=== PATIENT | female | born 1970 | race African-American/Black ===

== ENCOUNTER 2024-03-24 15:04 | Inpatient (IN) | payer MEDICAID, OTHER ==
[2024-03-24] VITALS (8 sets, daily range): BP systolic 141–160; BP diastolic 63–91; PULSE 107–125; RESP 17–100; TEMP 100–100.1; O2SAT 99–100
[~2024-03-24] VITALS: Ht 157.5 cm; Wt 80.7 kg
--- NOTE | 2024-03-24 15:36 | ECG ---
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
--- NOTE | 2024-03-24 16:08 | ED.PDOC ---
GI ASSESSMENT HPI Comments 53y F who presents to the ED for chief complaint of epigastric pain. Pt states she has been having pain for the past 2 days. Pt states her pain in located by the epigastric region, radiating to the back, rating the pain 7/10, sharp in nature, with no associated exacerbating or relieving factors. Pt denies any associated shortness of breath, palpitations, nausea, vomiting, fever, cough, or chills. Pt spouse states pt has not been able to eat for the past 2 weeks and has been having difficulty keeping anything down. Pt has no prior medical history and denies these symptoms in the past. Pt otherwise denies any other symptoms at this time. Chief Complaint: epigastric pain Time Seen by MD: 16:04 Primary Care Provider: NONE Reviewed Notes: Nurses Notes, Medications, Allergies Allergies: Coded Allergies: NO KNOWN ALLERGIES (Unverified , 03/24/24) Information Source: Patient, Spouse Mode of Arrival: Ambulatory Brought in by: spouse Timing: Days Duration: Since onset Prehospital treatment: None Quality: Sharp Vomitus: None Stool: Normal Severity: Moderate Recent: None Recent Hx of: None Pain Location: Epigastric Modifying Factors: Nothing Associated sign and symptoms: Abdominal Pain Past Medical History Past Medical History (Other): gout Surgical History: Denies all surgeries 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 Family History Family History: Family hx of HTN Social History Smoker: Non-Smoker Alcohol: Denies ETOH Use Drugs: Denies Drug Use Lives In: Home Constitutional: denies: chills, diaphoresis, fatigue, fever, malaise, sweats, weakness, others EENTM: denies: blurred vision, double vision, ear bleeding, ear discharge, ear drainage, ear pain, ear ringing, eye pain, eye redness, hearing loss, mouth pain, mouth swelling, nasal discharge, nose bleeding, nose congestion, nose pain, photophobia, tearing, throat pain, throat swelling, voice changes, others Respiratory: denies: cough, hemoptysis, orthopnea, SOB at rest, shortness of breath, SOB with excertion, stridor, wheezing, others Cardiovascular: denies: chest pain, dizzy spells, diaphoresis, Dyspnea on exertion, edema, irregular heart beat, left arm pain, lightheadedness, palpit ations, PND, syncope, others Gastrointestinal: reports: abdominal pain; denies: abdomen distended, blood streaked bowels, constipated, diarrhea, dysphagia, difficulty swallowing, hematemesis, melena, nausea, poor appetite, poor fluid intake, rectal bleeding, rectal pain, vomiting, others Genitourinary: denies: abnormal vagina bleeding, burning, dyspareunia, dysuria, flank pain, frequency, hematuria, incontinence, pain, , vagina dischar ge, urgency, others Neurological: denies: dizziness, fainting, headache, left sided numbness, left sided weakness, numbness, paresthesia, pre-existing deficit, right sided numbness, right sided weakness, seizure, speech problems, tingling, tremors, weakness, others Musculoskeletal: denies: back pain, gout, joint pain, joint swelling, muscle pain, muscle stiffness, neck pain, others Integumetry: denies: bruises, change in color, change in hair/nails, dryness, laceration, lesions, lumps, rash, wounds, others Allergic/Immunocompromised: denies: Difficulty Healing, Frequent Infections, Hives, Itching, others Physical Exam General Appearance: Moderate Distress HEENT: Pale Conjuntivae (L), Pale Conjuntivae (R), Pharynx Normal, TMs Normal Neck: Full Range of Motion, Non-Tender, Normal, Normal Inspection Respiratory: Chest Non-Tender, Lungs Clear, No Accessory Muscle Use, No Respiratory Distress, Normal Breath Sounds Cardiovascular: No Edema, No JVD, No Murmur, No Gallop, Tachycardia Breast Exam: Deferred Gastrointestinal: Hepatomegaly, No Pulsatile Mass, Normal Bowel Sounds, Tenderness Genitalia: Deferred Pelvic: Deferred Rectal: Deferred Extremities: No calf tenderness, Normal capillary refill, Normal inspection, Normal range of motion, Non-tender, No pedal edema Musculoskeletal : Apperance: Normal Neurologic: Alert, conductor pullman II-XII nml as Tested, Motor Weakness, Normal Affect, Normal Mood, No Sensory Deficits Cerebellar Function: Unable to Test Reflexes: Normal Skin: Dry, Pallor, Warm Lymphatic: No Adenopathy EKG EKG : Pulse Rate (adult): 116 Pearson: Normal Cardiac Rhythm: ST Block: None Hypertrophy: None ST: Normal Was a procedure done? Was a procedure done?: No GI differential Dx Differential Diagnosis: Constipation, Dysmenorrhea, Gastritis/PUD, Gastroenteritis, Pancreatitis, UTI, Urolithiasis, Dehydration, Food Poisoning, Bacterial, Viral, Stress Ulcer, Kidney Stone X-Ray, Labs, Meds, VS Vital Signs Date Time Temp Pulse Resp B/P (MAP) Pulse Ox O2 Delivery O2 Flow Rate FiO2 03/24/24 18:10 121 32 99 Nasal Cannula* 2 28 03/24/24 18:10 121 32 162/86 (111) 99 03/24/24 17:38 122 38 100 Nasal Cannula 2.0 03/24/24 17:38 98.2 122 38 172/88 (116) 100 98.2 03/24/24 16:08 116 03/24/24 15:29 97.8 121 27 112/73 (86) 95 03/24/24 15:27 116 Lab Test 03/24/24 18:00 03/24/24 17:03 03/24/24 16:20 Range/Units Blood Gas Specimen Type Arterial Blood Gas Sample Site Left radial Blood Gas Patient Temperature 37.0 Arterial Blood Date Drawn [id number] Arterial Blood pH 7.331 L 7.350-7.450 Arterial Blood Partial Pressure CO2 21.5 L 32.0-45.0 mmHg Arterial Blood Partial Pressure O2 102.5 83.0-108.0 mmHg Arterial Blood HCO3 11.1 L 21.0-28.0 mmol/L Tito Test Yes Blood Gas Total Hemoglobin < 4.90 *L 12.0-16.0 g/dL Blood Gas Liter Flow 2.00 Blood Gas Modality Nasal cannula FiO2 % 28.0 Blood Gas Critical Value Read Back yes Blood Gas Notified Whom Juvenal correia md Blood Gas Notified Time [id number] Blood Gas Notified By [place] alfredo monet SARS-CoV-2 Antigen (Rapid) Negative NEGATIVE White Blood Count 15.2 H 4.4-10.8 10^3/uL Red Blood Count 1.57 L 4.0-5.20 10^6/uL Hemoglobin 4.2 *L 12.2-16.2 g/dL Hematocrit 13.5 L 36.0-46.0 % Mean Corpuscular Volume 86.2 80.0-100.0 fL Mean Corpuscular Hemoglobin 27.1 L 28.0-32.0 pg Mean Corpuscular Hemoglobin Concent 31.4 L 32.0-36.0 g/dL Red Cell Distribution Width 13.9 11.8-14.3 % Platelet Count 339 140-450 10^3/uL Mean Platelet Volume 6.4 L 6.9-10.8 fL Neutrophils (%) (Auto) 94.5 H 37.0-80.0 % Lymphocytes (%) (Auto) 2.1 L 10.0-50.0 % Monocytes (%) (Auto) 3.3 0.0-12.0 % Eosinophils (%) (Auto) 0.0 0.0-7.0 % Basophils (%) (Auto) 0.1 0.0-2.0 % Neutrophils # (Auto) 14.4 H 1.6-8.6 10 ^3/uL Lymphocytes # (Auto) 0.3 L 0.4-5.4 10 ^3/uL Monocytes # (Auto) 0.5 0-1.3 10 ^3/uL Eosinophils # (Auto) 0 0-0.8 10 ^3/uL Basophils # (Auto) 0 0-0.2 10 ^3/uL Nucleated Red Blood Cells 0.0 % Prothrombin Time 12.3 H 9.3-11.8 sec Prothrombin Time INR 1.17 H 0.9-1.15 Activated Partial Thromboplast Time 28.7 24.5-34.5 SEC Sodium Level 130 L 136-145 mmol/L Potassium Level 5.9 *H 3.5-5.1 mmol/L Chloride Level 100 98-107 mmol/L Carbon Dioxide Level 10 L 20-31 mmol/L Anion Gap 20 H 5-15 Blood Urea Nitrogen 112 *H 9-23 mg/dL Creatinine 12.42 *H 0.550-1.02 mg/dL Glomerular Filtration Rate Calc 3 >90 mL/min BUN/Creatinine Ratio 9.0 L 10.0-20.0 Serum Glucose 103 74-106 mg/dL Calcium Level 6.5 L 8.7-10.4 mg/dL Total Bilirubin 0.2 0.2-1.0 mg/dL Aspartate Amino Transferase (AST) 20 13-40 U/L Alanine Aminotransferase (ALT) 10 7-40 U/L Alkaline Phosphatase 85 46-116 U/L Total Protein 7.7 5.7-8.2 g/dL Albumin 3.6 3.2-4.8 g/dL Lipase 103 H 12-53 U/L Current Medications Medications (Trade) Dose Ordered Sig/Gianna Route Start Time Stop Time Status Last Admin Sodium Bicarbonate 50 ml ONCE ONCE IV 03/24/24 17:30 03/24/24 17:31 DC 03/24/24 18:15 Calcium Gluconate/ Sodium Chloride 50 ml @ 100 mls/hr ONCE ONCE IV 03/24/24 17:30 03/24/24 17:59 DC 03/24/24 18:03 Dextrose 50 ml ONCE ONCE IV 03/24/24 17:30 03/24/24 17:31 DC 03/24/24 18:15 Insulin Human Regular (InsuLIN R) 5 units ONCE ONCE IV 03/24/24 17:30 03/24/24 17:31 DC 03/24/24 18:17 Exam: CT CT AB PEL WO CON-NO ORAL OR IV IMPRESSION: 1. Limited by significant motion artifact. Patchy ground-glass and consolidative opacities in the lung bases are likely infectious / inflammatory. Consider dedicated chest CT. No definite acute abdominal abnormality identified. Suspect uterine fibroids. If concern persists consider repeat exam when patient is able to hold still. The CBC shows an elevated white blood cell count of 15.2 The hemoglobin is only 4.2 and hematocrit of 13.5 The platelets are within normal limits. The patient was typed and screened and will be transfused with 2 units of packed red blood cells. The chemistry panel came back with a sodium level of 130 indicating hyponatremia The potassium level is 5.9 indicating hypokalemia The CO2 level is low at 10 in the anion gap is elevated is 20 The BUN is 112 and the creatinine is 12.42 We did contact Nephrology and spoke with them. The recommendation is to continue fluids as well as place a Castellon catheter in the patient. We are going to be transfusing the patient with 2 units of packed red blood cells which was also their recommendation The patient will be admitted to the ICU at this time. The patient was lipase is elevated at 103 An ABG is pending at this time. The results are above and do not indicate any significant hypoxemia At this time, the patient will be continued on normal saline The COVID test is negative Images Reviewed?: Images reviewed and evaluated by me Time of 1ST Reevaluation: 16:40 Reevaluation 1ST: Unchanged Patient Education/Counseling: Diagnosis, Treatment, Prognosis Family Education/Counseling: Diagnosis, Treatment, Prognosis Additional Information I reviewed the following notes from patient's past medical encounters: The following tests were ordered, and results were reviewed by me: CBC, CMP, EKG X 1, Lipase, UA, CT abdomen pelvis without contrast, PTPTT, orthostatics,type and screen Additional Information was gathered from interviewing the following independent historians: spouse I reviewed and agreed with the following test results read by other providers: radiologist I discussed treatment and results with medical personnel and: patient and spouse Departure 1 Departure Time of Disposition: 18:06 Impression: Primary Impression: Acute renal failure Qualified Codes: N17.1 - Acute kidney failure with acute cortical necrosis Additional Impressions: Severe anemia Generalized weakness Disposition: ADMITTED INPATIENT Admit to: ICU Condition: Fair Critical Care Note Critical Care Time?: Yes (1 hr-critical care time only) Stability Stability form required: Yes Unstable for transfer: ICU, CCU, PCU, [place] (Intensive VS monitoring), Low BP (low high or fluctuating BP), ED Physician Assesment (Clinical assesment) Heart Score Heart Score: Heart Score Response (Comments) Value History N/A 0 EKG N/A 0 Age N/A 0 Risk Factors N/A 0 Troponin N/A 0 Total 0 I personally scribed for DONIS CORREIA MD ([email or web address]) on 03/24/24 at 16:08. Electronically submitted by Marie Greco ([email or web address]). I personally scribed for DONIS CORREIA MD ([email or web address]) on 03/24/24 at 16:49. Electronically submitted by Marie Greco ([email or web address]). DONIS CORREIA MD Mar 24, 2024 16:08
--- NOTE | 2024-03-24 16:24 | DVH ---
Exam: CT CT AB PEL WO CON-NO ORAL OR IV History: pain Comparison Study: None Technique: Multidetector spiral CT of the abdomen and pelvis was performed from lung bases to pubic symphysis. Imaging was performed without IV contrast. Axial, coronal and sagittal multiplanar reform ats were obtained from the axial data set by the technologist. Radiation dose : Abdomen/Pelvis: CTDIvol 16 mGy, DLP 822.91 mGy*cm. Findings: Evaluation of solid organs is limited due to lack of intravenous contrast use. Lung Bases: Patchy ground-glass and consolidative opacities in the visualized lung bases. Liver: The liver is normal in size. No focal lesions. Gallbladder and biliary Tree: Gallbladder is surgically absent. Spleen: Unremarkable Pancreas: The pancreas is grossly normal in appearance. Adrenal Glands: Unremarkable Kidneys: Kidneys are grossly normal without calculi or hydronephrosis. Bladder: Grossly unremarkable for degree of distention. Bowel: The stomach is grossly normal in appearance. Small bowel and colon are normal in caliber and d istribution. Normal appendix is visualized in the right lower quadrant without findings of appendici tis. Ascites: Absent Lymphadenopathy: No mesenteric, retroperitoneal or periportal lymphadenopathy. Abdominal wall and Mesentery: Mild diffuse anasarca Vasculature: The visualized abdominal aorta is normal in size and caliber. Evaluation of abdominal a nd pelvic vessels is limited due to lack of intravenous contrast. Pelvic Organs: Uterus appears enlarged, suspect fibroids. Musculoskeletal: Grade 1 anterolisthesis of L4 on L5. IMPRESSION: 1. Limited by significant motion artifact. Patchy ground-glass and consolidative opacities in the jean pierre g bases are likely infectious / inflammatory. Consider dedicated chest CT. No definite acute abdomi nal abnormality identified. Suspect uterine fibroids. If concern persists consider repeat exam when p atient is able to hold still. Radiation optimization: All CT scans at this facility use at least one of these dose optimization scotty hniques: Automated exposure control mA and/or kV adjustment per patient size (includes targeted exams where dose is matched to clinical indication) or iterative reconstruction. HS:Y
[2024-03-24 16:40] LABS: Basophils # (auto) 0 10 ^3/uL (0-0.2); Basophils % (auto) 0.1 % (0.0-2.0); Eosinophils # (auto) 0 10 ^3/uL (0-0.8); Monocytes # (auto) 0.5 10 ^3/uL (0-1.3); Monocytes % (auto) 3.3 % (0.0-12.0); Red Cell Distribution Width 13.9 % (11.8-14.3); White Blood Cell 15.2 10^3/uL (4.4-10.8)
[2024-03-24 16:41] LABS: Hematocrit 13.5 % (36.0-46.0); Lymphocytes # (auto) 0.3 10 ^3/uL (0.4-5.4); Lymphocytes % (auto) 2.1 % (10.0-50.0); Mean Corpuscular Hemoglobin 27.1 pg (28.0-32.0); Mean Corpuscular Hgb Conc. 31.4 g/dL (32.0-36.0); Mean Corpuscular Volume 86.2 fL (80.0-100.0); Neutrophils # (auto) 14.4 10 ^3/uL (1.6-8.6); Neutrophils % (auto) 94.5 % (37.0-80.0); Platelet Count (auto) 339 10^3/uL (140-450); Red Blood Cells 1.57 10^6/uL (4.0-5.20)
[2024-03-24 16:56] LABS: Alanine Aminotransferase 10 U/L (7-40); Albumin 3.6 g/dL (3.2-4.8); Alkaline Phosphatase 85 U/L (46-116); Anion Gap 20 (5-15); Aspartate Aminotransferase 20 U/L (13-40); Chloride 100 mmol/L (98-107); Glucose 103 mg/dL (74-106); Total Protein 7.7 g/dL (5.7-8.2)
[2024-03-24 17:00] LABS: Bilirubin, Total 0.2 mg/dL (0.2-1.0); Calcium 6.5 mg/dL (8.7-10.4); Carbon Dioxide 10 mmol/L (20-31); Sodium 130 mmol/L (136-145)
[2024-03-24 17:02] LABS: INR 1.17 (0.9-1.15); Partial Thromboplastin Time 28.7 SEC (24.5-34.5); Prothrombin Time 12.3 sec (9.3-11.8)
[2024-03-24 17:05] LABS: Blood Urea Nitrogen 112 mg/dL (9-23); Potassium 5.9 mmol/L (3.5-5.1)
[2024-03-24 17:22] LABS: Lipase 103 U/L (12-53)
[2024-03-24 17:23] LABS: Hemoglobin 4.2 g/dL (12.2-16.2)
[2024-03-24] MEDS: CALCIUM GLUC 1,000mg/50ml-NS 50 ML IV ONE (18:03)
[2024-03-24] MEDS: SODIUM BICARB 8.4% 50Meq/50ml SYR Vial IV ONE (18:15)
[2024-03-24] MEDS: DEXTROSE (50%) 50ML SYRG IV ONE (18:15)
[2024-03-24] MEDS: InsuLIN REG 1unit/0.01ml Soln (100units/ml) IV ONE (18:17)
[2024-03-24 19:02] LABS: COVID19 ANTIGEN SOFIA FIA NEGATIVE (NEGATIVE)
[2024-03-24] MEDS ORDERED: MORPHINE SULFATE INJ 2 MG/ml SYRG IV PRN ×2 (21:00)
[2024-03-24] MEDS ORDERED: ONDANSETRON HCL 4 MG/2 ML VIAL IV PRN (21:00)
[2024-03-24] MEDS ORDERED: NITROGLYCERIN 0.4 MG SL TAB SL PRN (21:00)
--- NOTE | 2024-03-24 21:16 | DVHHPRES ---
History of Present Illness Resident Creating Document: BORIS VARMA RESIDENT History of Present Illness This is a 53yrs old female with past medical history of gout presented to the ED with a chief complaint of epigastric pain and throat pain for two days prior to this admission. According to patient the epigastric pain started two days ago which is sharp in nature, 7/10 with no aggravating and relieving factor, radiating to the back and not associated with any nausea, vomiting, hemoptysis or hematemesis. The patient lives in [facility] in [facility] and came to [place] one month ago as a visitor blood work was in November which was normal. On admission the patient hemoglobin was 4.2, elevated BUN , creatinine was 12.89, and potassium was 5.9. The patient had mammography one year ago which was normal and never had any colonoscopy, endoscopy and Pap test before. Patient denies productive cough, chest pain, shortness of breath, abdominal pain, nausea , vomiting, any change in bowel and bladder habit, melena, sick contact. Past Medical History Hypertension, gout Past Surgical History None Family History None Lives: Alone Past Social History Nonsmoker, nonalcoholic and never tried any drugs Review of Systems Constitutional: Yes: Fever Eyes: No: Pain, Vision change, Conjunctivae inflammation, Eyelid inflammation, Other, Redness ENT: No: Ear pain, Ear discharge, Nose pain, Nose discharge, Nose congestion, Mouth pain, Mouth swelling, Throat pain, Throat swelling, Other Respiratory: Cough, Dry Gastrointestinal: Abdominal Pain; No: Nausea, Vomiting, Diarrhea, Constipation, Melena, Hematochezia, Other Genitourinary: No Dysuria, No Frequency, No Incontinence, No Hematuria, No Retention, No Other Musculoskeletal: neck pain; No: other, shoulder pain, arm pain, back pain, hand pain, leg pain, foot pain Skin: No: Rash, Lesions, Jaundice, Bruising, Other Neurological: No: Weakness, Numbness, Incoordination, Change in speech, Confusion, Seizures, Other Allergies: Coded Allergies: NO KNOWN ALLERGIES (Unverified , 03/24/24) Medications Current Medications Medications Dose Ordered Sig/Gianna Route Start Time Stop Time Status Last Admin Dose Admin Sodium Chloride 10 ml Q8HR IV 03/24/24 22:00 UNV Ondansetron HCl 4 mg Q4HP PRN IV 03/24/24 21:00 UNV Acetaminophen 650 mg Q6HP PRN PO 03/24/24 21:00 UNV Morphine Sulfate 2 mg Q4HPRN PRN IV 03/24/24 21:00 UNV Nitroglycerin 0.4 mg Q5MINP PRN SL 03/24/24 21:00 UNV Morphine Sulfate 2 mg Q30M PRN IV 03/24/24 21:00 UNV Pantoprazole Sodium 40 mg BID IV 03/24/24 22:00 UNV Ceftriaxone Sodium 50 ml @ 100 mls/hr DAILY IV 03/25/24 10:00 UNV Azithromycin 250 ml @ 125 mls/hr COUMADIN IV 03/25/24 17:00 UNV Exam Vital Signs Vital Signs Date Time Temp Pulse Resp B/P (MAP) Pulse Ox O2 Delivery O2 Flow Rate FiO2 03/24/24 21:15 100.0 117 26 141/63 100.0 03/24/24 21:15 100 03/24/24 18:10 Nasal Cannula* 2 28 Exam Physical exam General Appearance: Alert, Oriented X3, mild distress (Pale mucous membrane) HEENT: Atraumatic, Mucous membr. moist/pink Respiratory: Clear to auscultation, Normal air movement Cardiovascular: Regular rate, Normal S1, Normal S2, No murmurs Abdominal: Normal bowel sounds, Soft, No hepatospenomegaly, No masses, Other (Tenderness in the right subcostal region) Extremities: No clubbing, No cyanosis, No edema, Normal pulses, No tenderness/swelling Skin: No rashes, No breakdown Neuro: Normal gait, Normal speech, Strength at 5/5 X4 ext, Normal tone, Sensation intact, Other (Grossly intact cranial nerves) Psych/Mental Status: Mental status NL, Mood NL Labs/Xrays Labs Test 03/24/24 18:00 03/24/24 17:03 03/24/24 16:20 Range/Units Blood Gas Specimen Type Arterial Blood Gas Sample Site Left radial Blood Gas Patient Temperature 37.0 Arterial Blood Date Drawn [id number] Arterial Blood pH 7.331 L 7.350-7.450 Arterial Blood Partial Pressure CO2 21.5 L 32.0-45.0 mmHg Arterial Blood Partial Pressure O2 102.5 83.0-108.0 mmHg Arterial Blood HCO3 11.1 L 21.0-28.0 mmol/L Tito Test Yes Blood Gas Total Hemoglobin < 4.90 *L 12.0-16.0 g/dL Blood Gas Liter Flow 2.00 Blood Gas Modality Nasal cannula FiO2 % 28.0 Blood Gas Critical Value Read Back yes Blood Gas Notified Whom Juvenal gold md Blood Gas Notified Time [id number] Blood Gas Notified By Burton monet SARS-CoV-2 Antigen (Rapid) Negative NEGATIVE White Blood Count 15.2 H 4.4-10.8 10^3/uL Red Blood Count 1.57 L 4.0-5.20 10^6/uL Hemoglobin 4.2 *L 12.2-16.2 g/dL Hematocrit 13.5 L 36.0-46.0 % Mean Corpuscular Volume 86.2 80.0-100.0 fL Mean Corpuscular Hemoglobin 27.1 L 28.0-32.0 pg Mean Corpuscular Hemoglobin Concent 31.4 L 32.0-36.0 g/dL Red Cell Distribution Width 13.9 11.8-14.3 % Platelet Count 339 140-450 10^3/uL Mean Platelet Volume 6.4 L 6.9-10.8 fL Neutrophils (%) (Auto) 94.5 H 37.0-80.0 % Lymphocytes (%) (Auto) 2.1 L 10.0-50.0 % Monocytes (%) (Auto) 3.3 0.0-12.0 % Eosinophils (%) (Auto) 0.0 0.0-7.0 % Basophils (%) (Auto) 0.1 0.0-2.0 % Neutrophils # (Auto) 14.4 H 1.6-8.6 10 ^3/uL Lymphocytes # (Auto) 0.3 L 0.4-5.4 10 ^3/uL Monocytes # (Auto) 0.5 0-1.3 10 ^3/uL Eosinophils # (Auto) 0 0-0.8 10 ^3/uL Basophils # (Auto) 0 0-0.2 10 ^3/uL Nucleated Red Blood Cells 0.0 % Prothrombin Time 12.3 H 9.3-11.8 sec Prothrombin Time INR 1.17 H 0.9-1.15 Activated Partial Thromboplast Time 28.7 24.5-34.5 SEC Sodium Level 130 L 136-145 mmol/L Potassium Level 5.9 *H 3.5-5.1 mmol/L Chloride Level 100 98-107 mmol/L Carbon Dioxide Level 10 L 20-31 mmol/L Anion Gap 20 H 5-15 Blood Urea Nitrogen 112 *H 9-23 mg/dL Creatinine 12.42 *H 0.550-1.02 mg/dL Glomerular Filtration Rate Calc 3 >90 mL/min BUN/Creatinine Ratio 9.0 L 10.0-20.0 Serum Glucose 103 74-106 mg/dL Calcium Level 6.5 L 8.7-10.4 mg/dL Total Bilirubin 0.2 0.2-1.0 mg/dL Aspartate Amino Transferase (AST) 20 13-40 U/L Alanine Aminotransferase (ALT) 10 7-40 U/L Alkaline Phosphatase 85 46-116 U/L Total Protein 7.7 5.7-8.2 g/dL Albumin 3.6 3.2-4.8 g/dL Lipase 103 H 12-53 U/L Assessment/Plan Assessment/Plan Assessment and plan: # Acute severe anemia # Rule out GI bleeding, hemolysis - On admission hemoglobin was 4.2 and 2 units of blood transfusion was given - Monitor H&H - Ordered FOBT, iron panel, ferritin, reticulocyte count, haptoglobin, LDH, B12 and folic acid. - NPO - Protonix IV 40 mg b.i.d. # Sepsis likely due to Gram positive/Gram-negative pneumonia - patient has increased temperature, tachycardia, tachypnea and increased WBC count - CT abdomen pelvis without contrast revealed patchy ground-glass opacity and possible consolidations in lung bases - Ordered COVID, flu, UA, blood culture, urine culture and lactic acid - IV ceftriaxone 1 g daily and IV azithromycin 500 mg daily # Rule out acute pancreatitis - Elevated lipase and CT abdomen pelvis revealed normal study - Ordered lipid panel. 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 - FeNA is 2.7 - Ordered HbA1C, complementsC3 and C4 level, ANCA panel, hepatitis panel, HIV, MADI, immunofixation and light chain free S, antiglomerular BM antibody. - Consulted nephrology - Consulted IR for kidney biopsy # Hyperkalemia - Hyperkalemia protocol management - Lokelma p.o. t.i.d. # Hypertensive heart disease - Ordered troponin, BNP and echo -Monitor BP closely. # History of gout - Ordered uric acid Goal of care discussed with the patient for more than 20 minutes full code Plan of treatment discussed with Dr. Mathews Plan discussed with: Patient My Orders Orders - BORIS VARMA RESIDENT Procedure Category Date Status Time Admit ADMIT 03/24/24 Transmitted 20:59 Code Status CODE 03/24/24 Transmitted 20:59 Sodium Chloride Lock PHA 03/24/24 Logged (Saline Lock Ns) 22:00 Ondansetron Hcl PHA 03/24/24 Logged (Zofran) 21:00 Complete Blood Count LAB 03/25/24 Verified 04:00 Comprehensive LAB 03/25/24 Verified Metabolic Panel 04:00 Npo (Nothing By DIET 03/25/24 Transmitted Mouth) Diet Breakfast Echo 2d Mode Cardiac US 03/24/24 Logged DOP 20:59 Acetaminophen Tablet PHA 03/24/24 Logged (Tylenol Tablet) 21:00 Morphine Sulfate PHA 03/24/24 Logged Injection 21:00 Nitroglycerin PHA 03/24/24 Logged Sublingual (Ntrostat 21:00 Morphine Sulfate PHA 03/24/24 Logged Injection 21:00 Oxygen By Nasal RT 03/24/24 Transmitted Cannula 20:59 Stat Ekg For Chest [facility] 03/24/24 In Process Pain 20:59 Notify Of Changes [facility] 03/24/24 In Process From Base 20:59 Child Development Teacher For [facility] 03/24/24 In Process 24 Hours 20:59 Emergency Dysrhythmia [facility] 03/24/24 In Process Protocol 20:59 Rhythm Strips Once [facility] 03/24/24 In Process Every Shift 20:59 Reticulocyte Count LAB 03/24/24 Logged 21:03 Haptoglobin LAB 03/24/24 Logged 21:03 Lactate Dehydrogenase LAB 03/24/24 Logged 21:03 Stool Occult Blood LAB 03/24/24 Logged 21:03 Urinalysis LAB 03/24/24 Logged 21:03 Uric Acid LAB 03/24/24 Logged 21:03 Urine Creatinine LAB 03/24/24 Logged 21:03 Urine Sodium LAB 03/24/24 Logged 21:03 Urine Protein LAB 03/24/24 Logged 21:03 Blood Culture Z[facility] 03/24/24 Logged 21:03 Urine Bacterial [facility] 03/24/24 Logged Culture 21:03 Lactic Acid W/ Reflex LAB 03/24/24 Logged Order 21:03 Drug Screen LAB 03/24/24 Logged 21:03 Parathyroid Hormone LAB 03/24/24 Logged Intact 21:03 Comprehensive LAB 03/24/24 Logged Hepatitis Panel 21:03 Pantoprazole PHA 03/24/24 Logged (Protonix) 22:00 Sodium Zirconium PHA 03/24/24 Logged Cyclosilicate 21:15 Troponin-I Hs LAB 03/24/24 Logged 21:08 Troponin-I Hs LAB 03/24/24 Logged 22:08 Troponin-I Hs LAB 03/25/24 Verified 00:08 B-Type Natriuretic LAB 03/24/24 Logged Peptide 21:08 Rapid Influenza A&B LAB 03/24/24 Logged 21:08 Mrsa Screen ZITA 03/24/24 Logged 21:08 *[facility] CONS 03/24/24 Transmitted -[place] 21:08 Ceftriaxone 1gm/50ml PHA 03/25/24 Logged D5w (Rocephin) 10:00 Azithromycin 500mg/ PHA 03/25/24 Logged 250ml (Zithromax 50 17:00 Magnesium LAB 03/24/24 Logged 21:12 Phosphorus LAB 03/24/24 Logged 21:12 Kidney US 03/24/24 Logged 21:12 Bladder Scan ORDERS 03/24/24 Transmitted 21:12 Hemoglobin A1c LAB 03/24/24 Verified 21:14 Thyroid Stimulating LAB 03/24/24 Verified Hormone 21:14 Date of Service: Mar 24, 2024 Billing Provider: JEROMY MATHEWS MD Common Visit Codes: [id number] INP/OBS CARE (HIGH) BORIS VARMA RESIDENT Mar 24, 2024 21:16 JEROMY MATHEWS MD Mar 25, 2024 08:20
[2024-03-24] MEDS: SODIUM CHLOR 0.9% PF (SALINE LOCK) 10ML VIAL/SYR IV SCH (22:00)
[2024-03-24 22:09] LABS: Urine Amorphous Crystal FEW /hpf (None Seen); Urine Bacteria FEW /hpf (None Seen); Urine Blood 3+ /uL (Negative); Urine Clarity Turbid (Clear); Urine Color Colorless (Yellow); Urine Protein, UAD 3+ (Negative); Urine Specific Gravity 1.012 (1.001-1.035); Urine Squamous Epithelial Cell FEW /hpf (<5); Urine Urobilinogen Normal (Negative); Urine WBC 11 /hpf (0 - 5)
[2024-03-24 22:23] LABS: Creatinine, Urine 67.89 mg/dL (30.0-125.0)
[2024-03-24 22:34] LABS: Protein, Urine 355.3 mg/dL (1-14)
[2024-03-24 22:35] LABS: Amphetamine Screen, Urine Neg (NEGATIVE); Barbiturate Scree,Urine Neg (NEGATIVE); Benzodiazephine Screen, Urine Neg (NEGATIVE); Cannabinoid Screen, Urine Neg (NEGATIVE); Cocaine Screen, Urine Neg (NEGATIVE); Opiate Scree,Urine Neg (NEGATIVE); Phencyclidine Screen, Urine Neg (NEGATIVE)
[2024-03-24] MEDS: SODIUM ZIRCONIUM CYCL 10 GM PAK PO ONE (22:50)
[2024-03-24] MEDS: ACETAMINOPHEN 325 MG TAB PO PRN (22:51)
[2024-03-24] MEDS: PANTOPRAZOLE 40 MG/10 ML VIAL INJ IV SCH (22:51)
--- NOTE | 2024-03-24 23:20 | DVH ---
BILATERAL RENAL ULTRASOUND CLINICAL HISTORY: MATIAS on CKD COMPARISON: CT obtained earlier the same day. TECHNIQUE: High-resolution real-time grayscale and color flow imaging is performed. FINDINGS: Sanitary [employer]kin Machine Tender reports difficulty with the examination due to patient body habitus. Right kidney: Measures 7.2 cm in length. No hydronephrosis. Normal cortical thickness. Increased pare nchymal echogenicity. Left kidney: Measures 7.6 cm in length. No hydronephrosis. Normal cortical thickness. Increased paren chymal echogenicity. Bladder: Underdistended. Prevoid volume 44 mL. No large mass lesion or calculus as visualized. IMPRESSION: Kidneys are smaller in size but symmetric. Increased renal parenchymal echogenicity can be seen with medical renal disease. No hydronephrosis.
[2024-03-24] MEDS: KETOROLAC TROMETH 30 MG/ML 1ML VIAL IM ONE (23:58)
[2024-03-25] VITALS (10 sets, daily range): BP systolic 121–150; BP diastolic 71–88; PULSE 90–101; RESP 16–20; TEMP 98–100.1; O2SAT 99–100
[2024-03-25] MEDS: AZITHROMYCIN 500MG/ 250ML 250 ML IV SCH (00:30)
[2024-03-25 04:28] LABS: Basophils # (auto) 0 10 ^3/uL (0-0.2); Eosinophils # (auto) 0 10 ^3/uL (0-0.8); Monocytes # (auto) 0.5 10 ^3/uL (0-1.3); Red Cell Distribution Width 14.1 % (11.8-14.3)
[2024-03-25 04:34] LABS: Basophils % (auto) 0.2 % (0.0-2.0); Hematocrit 18.9 % (36.0-46.0); Lymphocytes # (auto) 0.5 10 ^3/uL (0.4-5.4); Lymphocytes % (auto) 3.6 % (10.0-50.0); Mean Corpuscular Hemoglobin 28.8 pg (28.0-32.0); Mean Corpuscular Hgb Conc. 33.9 g/dL (32.0-36.0); Monocytes % (auto) 3.8 % (0.0-12.0); Neutrophils # (auto) 11.9 10 ^3/uL (1.6-8.6); Neutrophils % (auto) 92.4 % (37.0-80.0); Nucleated Red Blood Cells % 0.1 %; Platelet Count (auto) 228 10^3/uL (140-450); Red Blood Cells 2.22 10^6/uL (4.0-5.20); White Blood Cell 12.9 10^3/uL (4.4-10.8)
[2024-03-25 04:35] LABS: INR 1.24 (0.9-1.15); Prothrombin Time 12.9 sec (9.3-11.8)
[2024-03-25 04:39] LABS: Alkaline Phosphatase 73 U/L (46-116); Anion Gap 18 (5-15); Chloride 103 mmol/L (98-107); Glucose 88 mg/dL (74-106); LDL Cholesterol 79 mg/dL (< 100); Total Protein 6.5 g/dL (5.7-8.2); Triglycerides 92 mg/dL (< 150)
[2024-03-25 04:40] LABS: Aspartate Aminotransferase 21 U/L (13-40); Bilirubin, Total 0.3 mg/dL (0.2-1.0); Cholesterol 125 mg/dL (< 200)
--- NOTE | 2024-03-25 04:40 | DVH ---
Procedure: CT CHEST WITHOUT CONTRAST Reason for study/Clinical History: Hypoxia Comparison Study: None available at time of dictation. Exam Date: 03/25/2024 03:31 AM TECHNIQUE: Multidetector CT of the chest was performed from the lung apices to the upper abdomen with out the use of intravenous contract. Axial, coronal and sagittal multiplanar reformats were performed . Radiation dose Information: CT Dose: CTDI volume is 14.79 mGy. Dose-length product is 506.0 mGy*cm The dose indicators for CT are the volume computed tomography (CT) dose index (CTDIvol) and the dose length product (DLP), and are measured in units of mGy and mGy-cm, respectively. These indicators are not patient dose, but values generated from the CT scanner acquisition factors. The report includes radiation exposure data for exposures received during this examination. FINDINGS: Lower neck: Normal thyroid. Lungs: Diffuse bilateral airspace consolidation. Pleural: No effusion or pneumothorax Central airways: Patent. Heart/Vascular Structures: Normal heart size. No pericardial effusion. Coronary artery calcification s. Normal size thoracic aorta and main pulmonary artery. Lymph Nodes: No adenopathy Musculoskeletal: No acute osseous abnormality. Soft tissues: Normal. Upper abdomen: Limited portions of the upper abdomen are unremarkable. IMPRESSION: 1. Bilateral pulmonary opacities which may represent pulmonary edema or pneumonia. 2. Mild coronary artery disease. Radiation optimization: All CT scans at this facility use at least one of these dose optimization scotty hniques: Automated exposure control mA and/or kV adjustment per patient size (includes targeted exams where dose is matched to clinical indication) or iterative reconstruction.
[2024-03-25 04:41] LABS: % Iron Saturation 8.5 % (15-50); Hemoglobin 6.4 g/dL (12.2-16.2)
[2024-03-25 04:44] LABS: Folate (Folic Acid) 9.53 ng/mL (>5.38)
[2024-03-25 04:52] LABS: Alanine Aminotransferase < 9 U/L (7-40); Calcium 6.4 mg/dL (8.7-10.4); Carbon Dioxide 13 mmol/L (20-31); HDL Cholesterol 25 mg/dL (40-59); Magnesium 1.5 mg/dL (1.6-2.6); Phosphorus 8.8 mg/dL (2.4-5.1); Potassium 5.5 mmol/L (3.5-5.1); Sodium 134 mmol/L (136-145)
[2024-03-25 04:53] LABS: Blood Urea Nitrogen 114 mg/dL (9-23)
[2024-03-25 05:35] LABS: Platelet Estimate Adequate; Uric Acid 7.4 mg/dL (3.1-7.8)
[2024-03-25] MEDS: SODIUM ZIRCONIUM CYCL 10 GM PAK PO SCH (06:36)
[2024-03-25 08:46] LABS: Hepatitis B Core Total AB Negative (Negative)
[2024-03-25] MEDS: ALBUTEROL SULF 2.5 MG/0.5ML(0.5%) NEB SOLN NEB ONE (09:22)
[2024-03-25 10:19] LABS: Rapid Influenza A Negative (Negative); Rapid Influenza B Negative (Negative)
[2024-03-25] MEDS: DEXTROSE (50%) 50ML SYRG IV ONE (10:33)
[2024-03-25] MEDS: CALCIUM GLUC 1,000mg/50ml-NS 50 ML IV ONE (10:33)
[2024-03-25] MEDS: SODIUM BICARB 8.4% 50Meq/50ml SYR INJ IV ONE (10:33)
[2024-03-25] MEDS: InsuLIN REG 1unit/0.01ml Soln (100units/ml) IV ONE (10:33)
[2024-03-25] MEDS: cefTRIAXone 1GM/50ML D5W 50 ML IV SCH (10:59)
[2024-03-25 12:03] LABS: Hematocrit 22.2 % (36.0-46.0); Hemoglobin 7.4 g/dL (12.2-16.2)
--- NOTE | 2024-03-25 12:52 | DVHPNRES ---
Progress Note Date Seen: Mar 25, 2024 Resident Creating Document: JOSÉ BELTRAN RESIDENT Medical Necessity Reason Pt with a Central, PICC or Fol: No Subjective Review of Systems 53yrs old female with past medical history of gout presented to the ED with a chief complaint of chest pain, cough, epigastric pain and throat pain for two days prior to this admission. The patient lives in [facility] in [facility] and came to [place] one month ago as a visitor blood work was in November which was normal. pt seen and examined at bedside, is on 2L of oxygen through nasal canula. ROS Constitutional: No: Fever, Chills, Sweats, Weakness, Malaise, Other Eyes: No: Pain, Vision change, Conjunctivae inflammation, Eyelid inflammation, Other, Redness ENT: No: Ear pain, Ear discharge, Nose pain, Nose discharge, Nose congestion, Mouth pain, Mouth swelling, Throat pain, Throat swelling, Other Respiratory: Shortness of breath, cough No: Wheezing, Hemoptysis, Pleuritic Pain, Sputum, Wheezing, Other Cardiovascular: Chest pain, No: Chest Pain, Palpitations, Orthopnea, Paroxysmal Noc. Dyspnea, Edema, Lt Headedness, Other Gastrointestinal: epigastric pain No: Nausea, Vomiting, Abdominal Pain, Diarrhea, Constipation, Melena, Hematochezia, Other Musculoskeletal: No: other, neck pain, shoulder pain, arm pain, back pain, hand pain, leg pain, foot pain Neurological:; No: Weakness, Numbness, Incoordination, Change in speech, Confusion, Seizures Objective vital signs Vital Sign Date Time Temp Pulse Resp B/P (MAP) Pulse Ox O2 Delivery O2 Flow Rate FiO2 03/25/24 12:00 94 12 122/74 (90) 100 03/25/24 10:00 98.4 98.4 03/25/24 09:22 Nasal Cannula* 2 28 Total Intake and Output 03/24/24 03/24/24 03/25/24 15:00 23:00 07:00 Intake Total 1200 ml Output Total 0 ml Balance 1200 ml medications Current Medications Medications Dose Ordered Sig/Gianna Route Start Time Stop Time Status Last Admin Dose Admin Sodium Chloride 10 ml Q8HR IV 03/24/24 22:00 03/25/24 06:08 10 ML Acetaminophen 650 mg Q6HP PRN PO 03/24/24 21:00 03/24/24 22:51 650 MG Pantoprazole Sodium 40 mg BID IV 03/24/24 22:00 03/25/24 10:58 40 MG Zirconium Oxide 10 gm TID PO 03/25/24 06:00 03/25/24 06:36 10 GM Meropenem 50 ml @ 17 mls/hr DAILY IV 03/26/24 10:00 UNV Examination Examination General Appearance: Alert, Oriented X3, Cooperative, No acute distress HEENT: EOMI Respiratory: Clear to auscultation, Normal air movement Cardiovascular: Regular rate, Normal S1, Normal S2 Abdominal: Normal bowel sounds Extremities: No cyanosis, No edema, Normal pulses, No tenderness/swelling Skin: No rashes, No breakdown Neuro: Normal speech and tone laboratory and microbiology Laboratory Tests 03/25/24 11:48 03/25/24 04:00 Test 03/25/24 04:00 Range/Units Serum Glucose 88 74-106 mg/dL Labs and/or images reviewed: Labs reviewed by me, Image(s) reviewed by me Problem List/Assessment/Plan Problem List/Assessment/Plan Assessment/plan Neurology Cardiology # NSTEMI type 2 -likely due to MATIAS on CKD -EKG for monitoring Respiratory # Acute hypoxic respiratory failure likely in the setting of severe anemia, volume overload/pulmonary congestion/questionable pneumonia -2l O2 through nasal canula -IV Lasix 100 mg b.i.d. #?Questionable pneumonia, comminuted required, Gram-positive/Gram-negative -IV meropenem -sputum culture MRSA screen Hematology # Severe Anemia requiring blood transfusion, normocytic anemia, possibly due to anemia of chronic disease due to CKD, ?GI bleed -transfused with 3 units of PRBC -CBC in the a.m. Nephrology # MATIAS over CKD ?Glomerulonephritis -last BUN 114, creatinine 13.6 -nephrology consulted Planning dialysis -NPO after midnight for tunneled catheter -FeNA 2.7% -HIV, hep b, hep C, RPR # hyperkalemia likely due to MATIAS Corrected # anion gap and non-anion gap metabolic acidosis with compensated respiratory alkalosis likely due to uremic MATIAS -repeat BMP in the morning # hypomagnesemia -slow correction in the setting of MATIAS # hypocalcemia the setting of CKD -corrected calcium is 7.2, asymptomatic -monitor BMP # hyperphosphatemia likely in the setting of CKD -monitor Infectious disease #?Sepsis likely due to questionable pneumonia -judicious use of IV fluids considering GFR less than three -panculture -IV meropenem #UTI -IV meropenam -urine culture GI #?GI bleed -IV protonix 40mg BID -FOBT Endocrine Rheumatology #Gout -not in active flare Lines peripheral IV Line Drips Code status discussed with the patient for >21 min, FULL CODE Nutrition NPO after midnight DVT prophylaxis currently on hold because of severe anemia Case discussion with DR bishop Plan discussed with: Patient, Other My Orders My Orders Orders - JOSÉ BELTRAN RESIDENT Procedure Category Date Status Time Respiratory Culture ZITA 03/25/24 Logged W/ Gs 12:35 BIPAP RT 03/25/24 Logged 12:35 Abg W/ Co-Ox RT 03/25/24 Logged 12:35 Meropenem 500mg Ivpb PHA 03/25/24 Logged (Merrem 500mg/Ns) 12:45 Meropenem 500mg Ivpb PHA 03/26/24 Logged (Merrem 500mg/Ns) 10:00 CC Plasma Assessment Blood Product Administration S: [id number] Date of Service: Mar 25, 2024 Billing Provider: EMILIE BISHOP MD Common Visit Codes: [id number] CARE 30-74 MIN Coding Comment Comment attending attestation acute hypoxic respiratory failure sepsis? severe anemia req transfusion anemia chronic disease MATIAS on CKD hyperkalemia hypomag hypocalcemia hyperphos HAGMA gout type 2 VA CKD keep spo2 >94% low treshold for bipap/intubation nephro consult for HD IR for permacath, kidney bx serology keep hb >7 lokelma empiric meropenem hold ivf follow culture fobt critical care time 45 minutes JOSÉ BELTRAN Mar 25, 2024 12:52 EMILIE BISHOP MD Mar 25, 2024 18:46
--- NOTE | 2024-03-25 12:59 | DVHSR ---
APPROVED REPORT EXAM: Two-dimensional and M-mode echocardiogram with Doppler and color Doppler. Blood Pressure: 142/72 mmHg INDICATION Chest Pain RISK FACTORS Height: 62, Weight: 164 DIMENSIONS LVDd4.7 (3.8-5.7cm)LA (2D)4.6 (1.9-4.0cm)Aortic Root3.2 (2.0-3.7cm) LVDs3.3 (2.5-4.0cm)LA (MM) (1.9-4.0cm)Aortic Cusp Exc2.0 (1.5-2.0cm) EF (%) 57.0 (55-70%)Rt. Atrium3.9 (1.9-4.0cm)Asc. Aorta cm IVSd1.2 (0.7-1.1cm)RV (D) (1.8-2.4cm) PWd1.3 (0.7-1.1cm) Mitral Valve MitralMitral Stenosis E wave0.84m/sMV Mean GR.mmHg A wave0.97m/sMV Peak GR.141mmHg E/A ratio0.92D MVAcm2 DECEL [id number] 1/2 [id number] IVRTmsDop MVA6.18cm2 Aortic Valve Aortic ValveAortic Stenosis V11.40m/Olive Mean GR.6mmHg V21.64m/Olive Peak GR.11mmHg LVOT Diameter1.7 (1.8-2.4cm)Doppler AVA1.94cm2 Pulmonic Valve V21.09m/s Other Information Technically limited study due to body habitus and patient position. Conclusion Normal left ventricular size and dimension. Normal left ventricular systolic function estimated ejec tion fraction 55%. There is a grade diastolic dysfunction. Normal right ventricular size and dimension. Normal lright ventricular systolic function. Normal biatrial size and dimension. Normal aortic valve structure and function. Normal mitral valve structure and function. Normal tricuspid valve structure and function. The pulmonary valve is grossly normal. No pericardial effusion.
[2024-03-25 13:06] LABS: Hepatitis A Total Antibody Positive (Negative)
[2024-03-25 13:07] LABS: Hepatitis B Surface Antibody Negative (Negative); Hepatitis B Surface Antigen Negative (Negative); Hepatitis C Antibody Negative (Negative)
[2024-03-25] MEDS: MEROPENEM 500MG IVPB 50 ML IV ONE (13:15)
[2024-03-25 13:31] LABS: Base Excess -12.7 mmol/L (-2.0-3.0)
[2024-03-25 13:39] LABS: Chloride 103 mmol/L (98-107); Potassium 4.6 mmol/L (3.5-5.1)
[2024-03-25 13:40] LABS: Anion Gap 18 (5-15)
[2024-03-25 13:45] LABS: BUN/Creatinine Ratio 8.7 (10.0-20.0); Glucose 103 mg/dL (74-106)
[2024-03-25 14:09] LABS: Calcium 6.5 mg/dL (8.7-10.4); Carbon Dioxide 13 mmol/L (20-31); Sodium 134 mmol/L (136-145)
[2024-03-25 14:11] LABS: Blood Urea Nitrogen 114 mg/dL (9-23)
--- NOTE | 2024-03-25 15:09 | DVHINCON2 ---
Date of service: Mar 25, [address] Ellis Reason for Consultation Acute kidney injury History of Present Illness Patient is a 53-year-old female [place] who has past medical history significant for gouty arthritis is admitted because epigastric pain. An admission patient found to have elevated BUN creatinine nephrology is consulted for acute kidney injury Past Medical History Gouty arthritis Past Surgical History Patient denies Allergies: Coded Allergies: NO KNOWN ALLERGIES (Unverified , 03/24/24) Current Medications Current Medications Medications (Trade) Dose Ordered Sig/Gianna Route PRN Reason Start Time Stop Time Status Last Admin Sodium Chloride (Saline Lock Ns) 10 ml Q8HR IV 03/24/24 22:00 03/25/24 14:03 Ondansetron HCl (Zofran) 4 mg Q4HP PRN IV NAUSEA / VOMITING 03/24/24 21:00 03/25/24 12:35 DC Acetaminophen (Tylenol Tablet) 650 mg Q6HP PRN PO PAIN SCALE 1-3 OR TEMP>100.4 03/24/24 21:00 03/24/24 22:51 Morphine Sulfate 2 mg Q4HPRN PRN IV SEVERE PAIN (7-10 PAIN SCALE) 03/24/24 21:00 03/25/24 12:35 DC Nitroglycerin (Ntrostat Sublingual) 0.4 mg Q5MINP PRN SL FOR CHEST PAIN 03/24/24 21:00 03/25/24 12:35 DC Morphine Sulfate 2 mg Q30M PRN IV FOR CHEST PAIN 03/24/24 21:00 03/25/24 12:35 DC Pantoprazole Sodium (Protonix) 40 mg BID IV 03/24/24 22:00 03/25/24 10:58 Ceftriaxone Sodium 50 ml @ 100 mls/hr DAILY IV 03/25/24 10:00 03/25/24 12:35 DC 03/25/24 10:59 Azithromycin 250 ml @ 125 mls/hr DAILY@2200 IV 03/25/24 00:30 03/25/24 12:35 DC 03/25/24 00:30 Zirconium Oxide (Lokelma) 10 gm TID PO 03/25/24 06:00 03/25/24 14:03 Meropenem 50 ml @ 17 mls/hr DAILY IV 03/26/24 10:00 Furosemide (Lasix Injection) 100 mg BIDD IV 03/25/24 18:00 03/26/24 17:59 Review of Systems All 12 item review of systems reviewed with the patient nonsignificant except what is mentioned in the history of present illness H&P Exam Vital Signs/I&O Vital Sign Date Time Temp Pulse Resp B/P (MAP) Pulse Ox O2 Delivery O2 Flow Rate FiO2 03/25/24 14:00 104 22 138/76 (96) 100 03/25/24 10:00 98.4 98.4 03/25/24 09:22 Nasal Cannula* 2 28 Intake and Output 03/24/24 03/25/24 19:00 07:00 Intake Total 50 ml 1200 ml Output Total 0 ml Balance 50 ml 1200 ml Intake Oral 0 ml IV Total 50 ml Tube Feeding 0 ml Blood Product 1200 ml Other 0 ml Output Urine Total 0 ml Physical Exam Patient appear awake and alert Lungs clear to auscultation bilaterally Cardiac exam regular rate and rhythm GI soft nontender was normal Extremities no clubbing cyanosis or edema Neuro nonfocal Labs/Diagnostic Data Labs/Diagnostic Data Laboratory Tests Test 03/25/24 13:20 03/25/24 13:00 03/25/24 11:48 03/25/24 09:23 Range/Units Blood Gas Specimen Type Arterial Blood Gas Sample Site Right radial Blood Gas Patient Temperature 37.0 Arterial Blood Date Drawn Arterial Blood pH 7.313 L 7.350-7.450 Arterial Blood Partial Pressure CO2 24.8 L 32.0-45.0 mmHg Arterial Blood Partial Pressure O2 94.1 83.0-108.0 mmHg Arterial Blood HCO3 12.3 L 21.0-28.0 mmol/L Arterial Blood Oxygen Saturation 96.4 94.0-98.0 % Arterial Blood Base Excess -12.7 L -2.0-3.0 mmol/L Arterial Blood Oxyhemoglobin 94.1 94.0-98.0 % Arterial Blood Carboxyhemoglobin 1.5 0.5-1.5 % Arterial Blood Methemoglobin 0.9 0.0-1.5 % Tito Test Yes Blood Gas Total Hemoglobin 6.70 *L 12.0-16.0 g/dL Blood Gas Liter Flow 2.00 Blood Gas Modality Nasal cannula FiO2 % 28.0 Blood Gas Critical Value Read Back yes Blood Gas Notified Whom Dr. winslow Blood Gas Notified Time [id number] Blood Gas Notified By Sodium Level 134 L 136-145 mmol/L Potassium Level 4.6 3.5-5.1 mmol/L Chloride Level 103 98-107 mmol/L Carbon Dioxide Level 13 L 20-31 mmol/L Anion Gap 18 H 5-15 Blood Urea Nitrogen 114 *H 9-23 mg/dL Creatinine 13.16 *H 0.550-1.02 mg/dL Glomerular Filtration Rate Calc 3 >90 mL/min BUN/Creatinine Ratio 8.7 L 10.0-20.0 Serum Glucose 103 74-106 mg/dL Calcium Level 6.5 L 8.7-10.4 mg/dL Hemoglobin 7.4 #L 12.2-16.2 g/dL Hematocrit 22.2 #L 36.0-46.0 % Influenza Type A Antigen Negative Negative Influenza Type B Antigen Negative Negative Test 03/25/24 07:00 03/25/24 05:18 03/25/24 04:00 03/24/24 20:56 Range/Units Troponin I High Sensitivity 75 *H 79 *H 91 *H </=34 ng/L White Blood Count 12.9 H 4.4-10.8 10^3/uL Red Blood Count 2.22 L 4.0-5.20 10^6/uL Hemoglobin 6.4 #*L 12.2-16.2 g/dL Hematocrit 18.9 #L 36.0-46.0 % Mean Corpuscular Volume 85.0 80.0-100.0 fL Mean Corpuscular Hemoglobin 28.8 28.0-32.0 pg Mean Corpuscular Hemoglobin Concent 33.9 32.0-36.0 g/dL Red Cell Distribution Width 14.1 11.8-14.3 % Platelet Count 228 140-450 10^3/uL Mean Platelet Volume 6.6 L 6.9-10.8 fL Neutrophils (%) (Auto) 92.4 H 37.0-80.0 % Lymphocytes (%) (Auto) 3.6 L 10.0-50.0 % Monocytes (%) (Auto) 3.8 0.0-12.0 % Eosinophils (%) (Auto) 0.0 0.0-7.0 % Basophils (%) (Auto) 0.2 0.0-2.0 % Neutrophils # (Auto) 11.9 H 1.6-8.6 10 ^3/uL Lymphocytes # (Auto) 0.5 0.4-5.4 10 ^3/uL Monocytes # (Auto) 0.5 0-1.3 10 ^3/uL Eosinophils # (Auto) 0 0-0.8 10 ^3/uL Basophils # (Auto) 0 0-0.2 10 ^3/uL Nucleated Red Blood Cells 0.1 % Platelet Estimate Adequate Reticulocyte Count (auto) 3.23 H 0.5-1.5 % Prothrombin Time 12.9 H 9.3-11.8 sec Prothrombin Time INR 1.24 H 0.9-1.15 Activated Partial Thromboplast Time 26.0 24.5-34.5 SEC Sodium Level 134 L 136-145 mmol/L Potassium Level 5.5 H 3.5-5.1 mmol/L Chloride Level 103 98-107 mmol/L Carbon Dioxide Level 13 L 20-31 mmol/L Anion Gap 18 H 5-15 Blood Urea Nitrogen 114 *H 9-23 mg/dL Creatinine 12.70 *H 0.550-1.02 mg/dL Glomerular Filtration Rate Calc 3 >90 mL/min BUN/Creatinine Ratio 9.0 L 10.0-20.0 Serum Glucose 88 74-106 mg/dL Hemoglobin A1c < 3.8 <5.7 % A1C Lactic Acid Level 0.7 0.4-2.0 mmol/L Uric Acid 7.4 3.1-7.8 mg/dL Calcium Level 6.4 L 8.7-10.4 mg/dL Phosphorus Level 8.8 H 2.4-5.1 mg/dL Magnesium Level 1.5 L 1.6-2.6 mg/dL Iron Level 17 L 50-170 ug/dL Total Iron Binding Capacity 201 L 250-425 ug/dL Percent Iron Saturation 8.5 L 15-50 % Ferritin 231.5 10-291 ng/mL Total Bilirubin 0.3 0.2-1.0 mg/dL Aspartate Amino Transferase (AST) 21 13-40 U/L Alanine Aminotransferase (ALT) < 9 7-40 U/L Alkaline Phosphatase 73 46-116 U/L Lactate Dehydrogenase 421 H 120-246 U/L B-Type Natriuretic Peptide 599.68 0-100 pg/mL Total Protein 6.5 5.7-8.2 g/dL Albumin 3.0 L 3.2-4.8 g/dL Triglycerides Level 92 < 150 mg/dL Cholesterol Level 125 < 200 mg/dL LDL Cholesterol 79 < 100 mg/dL HDL Cholesterol 25 L 40-59 mg/dL Vitamin B12 Level 739 211-911 pg/mL Folic Acid 9.53 >5.38 ng/mL Thyroid Stimulating Hormone (TSH) 1.98 0.55-4.78 uIU/mL Parathyroid Hormone (Intact) 1329.1 H 18.4-80.1 pg/mL Hepatitis A Antibody Total Positive H Negative Hepatitis B Surface Antigen Negative Negative Hepatitis B Surface Antibody Negative Negative Hepatitis B Core Total Antibody Negative Negative Hepatitis C Antibody Negative Negative HIV (1&2) Antibody Negative Negative Urine Color Colorless Yellow Urine Clarity Turbid H Clear Urine pH 6.0 5.0-9.0 Urine Specific [place] 1.012 1.001-1.035 Urine Protein 3+ H Negative Urine Ketones Negative Negative Urine Blood 3+ H Negative /uL Urine Nitrite Negative Negative Urine Bilirubin Negative Negative Urine Urobilinogen Normal Negative mg/dL Urine Leukocyte Esterase Trace Negative /uL Urine RBC 134 0 - 4 /hpf Urine WBC 11 0 - 5 /hpf Urine Squamous Epithelial Cells Few <5 /hpf Urine Amorphous Crystals Few None Seen /hpf Urine Bacteria Few H None Seen /hpf Urine Creatinine 67.89 30.0-125.0 mg/dL Urine Sodium 19 L 40-220 mmol/L Urine Glucose 1+ H Normal mg/dL Urine Total Protein 355.3 H 1-14 mg/dL Urine Opiates Screen Neg NEGATIVE Urine Fentanyl Screen Neg NEGATIVE Urine Barbiturates Screen Neg NEGATIVE Urine Phencyclidine Screen Neg NEGATIVE Urine Amphetamines Screen Neg NEGATIVE Urine Benzodiazepines Screen Neg NEGATIVE Urine Cocaine Screen Neg NEGATIVE Urine Cannabinoids Screen Neg NEGATIVE Test 03/24/24 18:00 03/24/24 17:03 03/24/24 16:20 Range/Units Blood Gas Specimen Type Arterial Blood Gas Sample Site Left radial Blood Gas Patient Temperature 37.0 Arterial Blood Date Drawn [id number] Arterial Blood pH 7.331 L 7.350-7.450 Arterial Blood Partial Pressure CO2 21.5 L 32.0-45.0 mmHg Arterial Blood Partial Pressure O2 102.5 83.0-108.0 mmHg Arterial Blood HCO3 11.1 L 21.0-28.0 mmol/L Tito Test Yes Blood Gas Total Hemoglobin < 4.90 *L 12.0-16.0 g/dL Blood Gas Liter Flow 2.00 Blood Gas Modality Nasal cannula FiO2 % 28.0 Blood Gas Critical Value Read Back yes Blood Gas Notified Whom Juvenal gold md Blood Gas Notified Time [id number] Blood Gas Notified By Vice Chair alfredo monet SARS-CoV-2 Antigen (Rapid) Negative NEGATIVE White Blood Count 15.2 H 4.4-10.8 10^3/uL Red Blood Count 1.57 L 4.0-5.20 10^6/uL Hemoglobin 4.2 *L 12.2-16.2 g/dL Hematocrit 13.5 L 36.0-46.0 % Mean Corpuscular Volume 86.2 80.0-100.0 fL Mean Corpuscular Hemoglobin 27.1 L 28.0-32.0 pg Mean Corpuscular Hemoglobin Concent 31.4 L 32.0-36.0 g/dL Red Cell Distribution Width 13.9 11.8-14.3 % Platelet Count 339 140-450 10^3/uL Mean Platelet Volume 6.4 L 6.9-10.8 fL Neutrophils (%) (Auto) 94.5 H 37.0-80.0 % Lymphocytes (%) (Auto) 2.1 L 10.0-50.0 % Monocytes (%) (Auto) 3.3 0.0-12.0 % Eosinophils (%) (Auto) 0.0 0.0-7.0 % Basophils (%) (Auto) 0.1 0.0-2.0 % Neutrophils # (Auto) 14.4 H 1.6-8.6 10 ^3/uL Lymphocytes # (Auto) 0.3 L 0.4-5.4 10 ^3/uL Monocytes # (Auto) 0.5 0-1.3 10 ^3/uL Eosinophils # (Auto) 0 0-0.8 10 ^3/uL Basophils # (Auto) 0 0-0.2 10 ^3/uL Nucleated Red Blood Cells 0.0 % Prothrombin Time 12.3 H 9.3-11.8 sec Prothrombin Time INR 1.17 H 0.9-1.15 Activated Partial Thromboplast Time 28.7 24.5-34.5 SEC Sodium Level 130 L 136-145 mmol/L Potassium Level 5.9 *H 3.5-5.1 mmol/L Chloride Level 100 98-107 mmol/L Carbon Dioxide Level 10 L 20-31 mmol/L Anion Gap 20 H 5-15 Blood Urea Nitrogen 112 *H 9-23 mg/dL Creatinine 12.42 *H 0.550-1.02 mg/dL Glomerular Filtration Rate Calc 3 >90 mL/min BUN/Creatinine Ratio 9.0 L 10.0-20.0 Serum Glucose 103 74-106 mg/dL Calcium Level 6.5 L 8.7-10.4 mg/dL Total Bilirubin 0.2 0.2-1.0 mg/dL Aspartate Amino Transferase (AST) 20 13-40 U/L Alanine Aminotransferase (ALT) 10 7-40 U/L Alkaline Phosphatase 85 46-116 U/L Total Protein 7.7 5.7-8.2 g/dL Albumin 3.6 3.2-4.8 g/dL Lipase 103 H 12-53 U/L Assessment Acute kidney injury superimposed Chronic Kidney Disease secondary hemodynamic mediated Acute pancreatitis History of gouty nephropathy Severe anemia status post packed red blood cell transfusion Hyperkalemia Metabolic acidosis NSTEMI Hyperphosphatemia Nephrotic range proteinuria Recommendations I discussed risk and benefits of hemodialysis with the patient Consents for hemodialysis Radiology consult for tunneled hemodialysis catheter Hemodialysis after catheter placement Packed red blood cell transfusion p.r.n. Rule out GI bleeding, stool occult blood Renvela 2400 mg p.o. t.i.d. with meals Renal diet Check uric acid level We will consider kidney biopsy what patient is status We will continue to follow Patient seen and examined by myself ER bed 15. I discussed my plan of care with the patient and primary nurse at the bedside I would like to thank consult, will follow up Plan discussed with: Patient PREET DOLAN MD Mar 25, 2024 15:09
[2024-03-25] MEDS: MAGNESIUM SULFATE 1GM/100ML 100 ML IV ONE (15:53)
[2024-03-25] MEDS: SEVELAMER 800 MG TAB PO SCH (18:10)
[2024-03-25] MEDS: FUROSEMIDE 100 MG/10ML VIAL IV SCH (18:10)
--- NOTE | 2024-03-25 18:55 | ECG ---
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
[2024-03-26] VITALS (15 sets, daily range): BP systolic 99–163; BP diastolic 62–86; PULSE 89–104; RESP 12–22; TEMP 97.8–98.4; O2SAT 93–99
[2024-03-26] MEDS: HYDROcodone-ACET 7.5/325MG TAB PO ONE (03:57)
[2024-03-26 04:36] LABS: Basophils # (auto) 0 10 ^3/uL (0-0.2); Basophils % (auto) 0.2 % (0.0-2.0); Hemoglobin 7.3 g/dL (12.2-16.2); Monocytes # (auto) 0.5 10 ^3/uL (0-1.3); Neutrophils # (auto) 7.7 10 ^3/uL (1.6-8.6); White Blood Cell 8.9 10^3/uL (4.4-10.8)
[2024-03-26 04:37] LABS: Chloride 103 mmol/L (98-107)
[2024-03-26 04:38] LABS: Anion Gap 16 (5-15); Eosinophils # (auto) 0.2 10 ^3/uL (0-0.8); Eosinophils % (auto) 1.9 % (0.0-7.0); Hematocrit 21.7 % (36.0-46.0); Lymphocytes # (auto) 0.5 10 ^3/uL (0.4-5.4); Lymphocytes % (auto) 5.9 % (10.0-50.0); Mean Corpuscular Hemoglobin 28.7 pg (28.0-32.0); Mean Corpuscular Hgb Conc. 33.7 g/dL (32.0-36.0); Mean Corpuscular Volume 85.1 fL (80.0-100.0); Monocytes % (auto) 5.2 % (0.0-12.0); Neutrophils % (auto) 86.8 % (37.0-80.0); Platelet Count (auto) 220 10^3/uL (140-450); Red Blood Cells 2.55 10^6/uL (4.0-5.20); Red Cell Distribution Width 14.6 % (11.8-14.3)
[2024-03-26 04:43] LABS: Glucose 102 mg/dL (74-106)
[2024-03-26 04:44] LABS: Magnesium 1.7 mg/dL (1.6-2.6)
[2024-03-26 04:48] LABS: Carbon Dioxide 14 mmol/L (20-31); Potassium 5.1 mmol/L (3.5-5.1); Sodium 133 mmol/L (136-145)
[2024-03-26 04:50] LABS: Phosphorus 10.1 mg/dL (2.4-5.1)
[2024-03-26 04:51] LABS: Blood Urea Nitrogen 122 mg/dL (9-23)
[2024-03-26 08:06] LABS: Complement C3 74 mg/dL (82-167); Immunoglobulin A 411 mg/dL (87-352); Immunoglobulin G, Serum 1682 mg/dL (586-1602); Immunoglobulin M 84 mg/dL (26-217)
[2024-03-26] MEDS: LIDOCAINE 2%HCL (LOCAL ANESTH.) INJ 20ML MDV ONE (08:38)
[2024-03-26] MEDS: HEPARIN SODIUM (PORCINE) 5000 UNITS/ML 1ML VIAL ONE (08:38)
[2024-03-26] MEDS: MIDAZOLAM HCL 2MG/2ML 2ml VIAL (1mg/ml) ONE (08:38)
[2024-03-26] MEDS: fentaNYL CITRATE 100 MCG/2 ML VL ONE (08:38)
[2024-03-26] MEDS: ceFAZolin 1GM/50ML 50 ML IV ONE (08:43)
[2024-03-26] MEDS: MEROPENEM 500MG IVPB 50 ML IV SCH (10:21)
[2024-03-26 11:06] LABS: Kappa Lite Chain Free Serum 325.1 mg/L (3.3-19.4)
--- NOTE | 2024-03-26 11:22 | DVH ---
XY Insertion of Venous Cath, HISTORY: HD CATH PROCEDURE: Informed consent was obtained. The patient was placed supine on the interventional table. 1 gram of Ancef was given. A limited localization ultrasound of the right neck base was obtained. The right neck base and upper chest were prepped with chlorhexidine which was allowed to dry and draped in the usual sterile fashion. Time out was performed. IV sedation was administered. The skin and the soft tissues were infiltrated with 1% Lidocaine . With real-time ultrasound guidance, the internal ju gular vein was accessed with a micropuncture kit, and an image documenting patency was recorded to PREET ZAMORA. A subcutaneous tunneled tract was created from the right upper chest to the venotomy site. A 14.5 [place] Path, 19 cm long hemodialysis catheter was advanced through the tunneled tract. Fluoroscopy was used to advance a guidewire through the internal jugular vein into the inferior vena cava. Following serial dilatation, a 15 Indonesian peel-away sheath was introduced, though which was adva nced the catheter into the right atrium. The catheter tip position was confirmed with fluoroscopy. Th ere was satisfactory flow in both lumens. The catheter lumens were flushed with saline and heparin wa s left indwelling in the catheter. A post-procedure image of the chest was obtained. The neck incisio n site was closed with Dermabond and dressed sterilely. The catheter was sutured at the skin surface and exit site also dressed sterilely. No immediate complication was identified. DAP 71.83 FLUOROSCOPY TIME: 0.9 minutes. SEDATION: Dr. Margie Gandara was personally responsible for the administration of moderate sedation during the procedure performed, including the use of an independent trained observer who had no other duties during the procedure. The drugs utilized were IV fentanyl and versed (see nursing log for details). The total time of supervision by the attending physician was approximately 30 minutes. FINDINGS: Widely patent right IJV. Post procedure image demonstrates smooth course of the hemodialysi s catheter with the tip in the right atrium. IMPRESSION: Successful placement of 14.5 [place] [address], 19 cm long hemodialysis catheter through right manager internal al jugular vein. Plan: Please contact IR for removal when no longer needed.
[2024-03-26 13:06] LABS: Anti-Nuclear Antibody Direct Positive (Negative)
[2024-03-26] MEDS: CALCIUM GLUC 1,000mg/50ml-NS 50 ML IV ONE (14:31)
[2024-03-26] MEDS: CALCIUM GLUC 1,000mg/50ml-NS 50 ML IV SCH (14:31)
--- NOTE | 2024-03-26 14:45 | DVHPN2 ---
Progress Note Date Seen: Mar 26, 2024 Medical Necessity Reason Pt with a Central, PICC or Fol: No Subjective Patient reports: No new complaints Other Systems: Patient seen and examined by myself on follow-up today Objective vital signs Vital Sign Date Time Temp Pulse Resp B/P (MAP) Pulse Ox O2 Delivery O2 Flow Rate FiO2 03/26/24 13:02 98 13 134/82 (99) 98 03/26/24 09:17 97.8 97.8 03/25/24 21:29 Room Air* 0 21 Total Intake and Output 03/25/24 03/25/24 03/26/24 15:00 23:00 07:00 Intake Total 700 ml 340 ml 120 ml Output Total 0 ml Balance 700 ml 340 ml 120 ml medications Current Medications Medications Dose Ordered Sig/Gianna Route Start Time Stop Time Status Last Admin Dose Admin Sodium Chloride 10 ml Q8HR IV 03/24/24 22:00 03/26/24 14:23 10 ML Acetaminophen 650 mg Q6HP PRN PO 03/24/24 21:00 03/26/24 01:13 650 MG Pantoprazole Sodium 40 mg BID IV 03/24/24 22:00 03/26/24 10:20 40 MG Zirconium Oxide 10 gm TID PO 03/25/24 06:00 03/26/24 14:29 10 GM Meropenem 50 ml @ 17 mls/hr DAILY IV 03/26/24 10:00 03/26/24 10:21 17 MLS/HR Furosemide 100 mg BIDD IV 03/25/24 18:00 03/26/24 17:59 03/26/24 06:25 100 MG Sevelamer HCl 2,400 mg TIDWM PO 03/25/24 18:00 03/26/24 13:43 2,400 MG Calcium Gluconate/ Sodium Chloride 50 ml @ 100 mls/hr Q30M IV 03/26/24 14:00 03/26/24 14:59 UNV Examination: LUNGS:Normal, CVS:Normal, MSK:Normal laboratory and microbiology Laboratory Tests 03/26/24 04:09 Test 03/26/24 04:09 Range/Units Serum Glucose 102 74-106 mg/dL Microbiology Date/Time Source Procedure Growth Status 03/25/24 04:00 Blood Blood Culture - Preliminary NO GROWTH AFTER 24 HOURS OF INCUBATION. Resulted 03/24/24 20:56 Voided Urine Urine Culture - Preliminary Resulted Problem List/Assessment/Plan Problem List/Assessment/Plan Acute kidney injury superimposed Chronic Kidney Disease secondary hemodynamic mediated Acute pancreatitis Positive MADI, low C3 and low for C4 consistent with lupus nephritis History of gouty nephropathy Severe anemia status post packed red blood cell transfusion Hyperkalemia Metabolic acidosis NSTEMI Hyperphosphatemia Nephrotic range proteinuria Status post tunneled hemodialysis catheter Recommendations Hemodialysis today Radiology consult for tunneled hemodialysis catheter Epogen 99362 IV post hemodialysis Packed red blood cell transfusion p.r.n. Rule out GI bleeding, stool occult blood Renvela 2400 mg p.o. t.i.d. with meals Renal diet Radiology for kidney biopsy We will continue to follow Plan discussed with: Patient My Orders My Orders Orders - PREET DOLAN MD Procedure Category Date Status Time Sevelamer (Renagel) PHA 03/25/24 In Process 18:00 Hemodialysis Orders ORDERS 03/26/24 Transmitted 07:00 Dialysis Nursing DEAN 03/26/24 In Process Message 07:00 Document Fluid Input DEAN 03/26/24 In Process And Outpu 07:00 Epoetin Shabbir-Epbx PHA 03/26/24 In Process (Retacrit) 21:00 CC Plasma Assessment Blood Product Administration S: [id number] PREET DOLAN MD Mar 26, 2024 14:45
[2024-03-26] MEDS: HYDROcodone-ACET 5/325MG TAB PO ONE (16:16)
--- NOTE | 2024-03-26 16:21 | DVHPNRES ---
Progress Note Date Seen: Mar 26, 2024 Resident Creating Document: JOSÉ BELTRAN RESIDENT Medical Necessity Reason Pt with a Central, PICC or Fol: No Subjective Review of Systems Patient seen and examined in photo lab specialist. She underwent tunneled catheter placement today Patient is currently mentioning of pain at the tunnel catheter site and bilateral legs cramp. ROS Constitutional: No: Fever, Chills, Sweats, Weakness, Malaise, Other Eyes: No: Pain, Vision change, Conjunctivae inflammation, Eyelid inflammation, Other, Redness ENT: No: Ear pain, Ear discharge, Nose pain, Nose discharge, Nose congestion, Mouth pain, Mouth swelling, Throat pain, Throat swelling, Other Respiratory: No: Cough, Dry, Shortness of breath, SOB with excertion, Wheezing, Hemoptysis, Pleuritic Pain, Sputum, Wheezing, Other Cardiovascular: No: Chest Pain, Palpitations, Orthopnea, Paroxysmal Noc. Dyspnea, Edema, Lt Headedness, Other Gastrointestinal: No: Nausea, Vomiting, Abdominal Pain, Diarrhea, Constipation, Melena, Hematochezia, Other Musculoskeletal: Pain at the tunnel catheter site, Bilateral leg cramps No: other, neck pain, shoulder pain, arm pain, back pain, hand pain, leg pain, foot pain Neurological:; No: Weakness, Numbness, Incoordination, Change in speech, Confusion, Seizures Objective vital signs Vital Sign Date Time Temp Pulse Resp B/P (MAP) Pulse Ox O2 Delivery O2 Flow Rate FiO2 03/26/24 15:03 90 18 93 Room Air* 0 21 03/26/24 14:02 148/82 (104) 03/26/24 09:17 97.8 97.8 Total Intake and Output 03/25/24 03/25/24 03/26/24 15:00 23:00 07:00 Intake Total 700 ml 340 ml 120 ml Output Total 0 ml Balance 700 ml 340 ml 120 ml medications Current Medications Medications Dose Ordered Sig/Gianna Route Start Time Stop Time Status Last Admin Dose Admin Sodium Chloride 10 ml Q8HR IV 03/24/24 22:00 03/26/24 14:23 10 ML Acetaminophen 650 mg Q6HP PRN PO 03/24/24 21:00 03/26/24 14:54 650 MG Pantoprazole Sodium 40 mg BID IV 03/24/24 22:00 03/26/24 10:20 40 MG Zirconium Oxide 10 gm TID PO 03/25/24 06:00 03/26/24 14:29 10 GM Meropenem 50 ml @ 17 mls/hr DAILY IV 03/26/24 10:00 03/26/24 10:21 17 MLS/HR Furosemide 100 mg BIDD IV 03/25/24 18:00 03/26/24 17:59 03/26/24 06:25 100 MG Sevelamer HCl 2,400 mg TIDWM PO 03/25/24 18:00 03/26/24 13:43 2,400 MG Examination Examination General Appearance: Alert, Oriented X3, Cooperative, No acute distress HEENT: EOMI Respiratory: Clear to auscultation, Normal air movement Cardiovascular: Regular rate, Normal S1, Normal S2, tunneled subclavian catheter present on the right side Abdominal: Normal bowel sounds Extremities: Bilateral lower leg pain, No cyanosis, No edema, Normal pulses, No tenderness/swelling Skin: No rashes, No breakdown Neuro: Normal speech and tone laboratory and microbiology Laboratory Tests 03/26/24 04:09 Test 03/26/24 04:09 Range/Units Serum Glucose 102 74-106 mg/dL Microbiology Date/Time Source Procedure Growth Status 03/25/24 04:00 Blood Blood Culture - Preliminary NO GROWTH AFTER 24 HOURS OF INCUBATION. Resulted 03/24/24 20:56 Voided Urine Urine Culture - Preliminary Resulted Labs and/or images reviewed: Labs reviewed by me, Image(s) reviewed by me Problem List/Assessment/Plan Problem List/Assessment/Plan Assessment/plan Neurology Cardiology # NSTEMI type 2 -likely due to MATIAS on CKD -EKG for monitoring Respiratory # Acute hypoxic respiratory failure likely in the setting of severe anemia, volume overload/pulmonary congestion/questionable pneumonia, improving Currently on room air -IV Lasix 100 mg b.i.d. #?Questionable pneumonia, comminuted required, Gram-positive/Gram-negative -IV meropenem -sputum culture MRSA screen Hematology # Severe Anemia requiring blood transfusion, normocytic anemia, possibly due to anemia of chronic disease due to CKD, ?GI bleed -transfused with 3 units of PRBC -CBC in the a.m. Nephrology # MATIAS over CKD ?Glomerulonephritis likely lupus nephritis -nephrology consulted Planning dialysis -FeNA 2.7% -HIV, hep b, hep C, RPR Patient underwent tunneled dialysis catheter today Positive MADI, low C3 and low for C4 consistent with lupus nephritis # hyperkalemia likely due to MATIAS Corrected # anion gap and non-anion gap metabolic acidosis with compensated respiratory alkalosis likely due to uremic MATIAS -repeat BMP in the morning # hypomagnesemia -slow correction in the setting of MATIAS # hypocalcemia the setting of CKD, having muscle spasm -corrected calcium is 6.8 , symptomatic -monitor BMP -IV calcium 2gm once, repeat BMP in next 4 hours # hyperphosphatemia likely in the setting of CKD -monitor Infectious disease #?Sepsis likely due to questionable pneumonia -judicious use of IV fluids considering GFR less than three -panculture -IV meropenem #UTI -IV meropenam -urine culture GI #?GI bleed -IV Protonix 40mg BID -FOBT Endocrine Rheumatology #Gout -not in active flare Lines peripheral IV Line Drips Code status discussed with the patient for >21 min, FULL CODE Nutrition Renal diet DVT prophylaxis currently on hold because of severe anemia Case discussion with DR bishop Plan discussed with: Patient, Other My Orders My Orders Orders - JOSÉ BELTRAN Procedure Category Date Status Time Transfer Orders XFER 03/26/24 Transmitted 13:40 Basic Metabolic Panel LAB 03/26/24 Logged 17:54 Hydrocodone-Acet PHA 03/26/24 Logged 5/325mg Tab ([place] 16:15 Creatine Kinase LAB 03/26/24 Verified 17:54 CC Plasma Assessment Blood Product Administration S: [id number] Date of Service: Mar 26, 2024 Billing Provider: EMILIE BISHOP MD Common Visit Codes: [id number] INP/OBS CARE(LOW) JOSÉ BELTRAN Mar 26, 2024 16:21 EMILIE BISHOP MD Mar 27, 2024 17:30
[2024-03-26 18:55] LABS: Chloride 102 mmol/L (98-107); Potassium 4.9 mmol/L (3.5-5.1)
[2024-03-26 18:56] LABS: Anion Gap 16 (5-15)
[2024-03-26 19:01] LABS: BUN/Creatinine Ratio 9.8 (10.0-20.0)
[2024-03-26 19:23] LABS: Calcium 6.1 mg/dL (8.7-10.4); Carbon Dioxide 14 mmol/L (20-31); Glucose 129 mg/dL (74-106); Sodium 132 mmol/L (136-145)
[2024-03-26 19:24] LABS: Blood Urea Nitrogen 134 mg/dL (9-23)
[2024-03-27] VITALS (11 sets, daily range): BP systolic 97–145; BP diastolic 44–89; PULSE 67–105; RESP 16–20; TEMP 97.7–98.5; O2SAT 85–98
[2024-03-27 06:40] LABS: Basophils # (auto) 0 10 ^3/uL (0-0.2); Basophils % (auto) 0.4 % (0.0-2.0); Eosinophils # (auto) 0.3 10 ^3/uL (0-0.8); Eosinophils % (auto) 5.4 % (0.0-7.0); Monocytes # (auto) 0.3 10 ^3/uL (0-1.3); Neutrophils # (auto) 3.9 10 ^3/uL (1.6-8.6); Red Blood Cells 2.42 10^6/uL (4.0-5.20); Red Cell Distribution Width 14.8 % (11.8-14.3)
[2024-03-27 06:43] LABS: Hematocrit 21.1 % (36.0-46.0); Lymphocytes # (auto) 0.5 10 ^3/uL (0.4-5.4); Mean Corpuscular Hemoglobin 28.9 pg (28.0-32.0); Mean Corpuscular Hgb Conc. 33.2 g/dL (32.0-36.0); Mean Corpuscular Volume 87.1 fL (80.0-100.0); Monocytes % (auto) 6.9 % (0.0-12.0); Neutrophils % (auto) 78.3 % (37.0-80.0); Nucleated Red Blood Cells % 0.2 %; Platelet Count (auto) 202 10^3/uL (140-450)
[2024-03-27 07:06] LABS: Anion Gap 19 (5-15); Chloride 101 mmol/L (98-107); Potassium 4.4 mmol/L (3.5-5.1)
[2024-03-27 07:11] LABS: Glucose 91 mg/dL (74-106)
[2024-03-27 07:12] LABS: Magnesium 1.7 mg/dL (1.6-2.6)
[2024-03-27 07:31] LABS: Calcium 6.1 mg/dL (8.7-10.4); Carbon Dioxide 12 mmol/L (20-31); Sodium 132 mmol/L (136-145)
[2024-03-27 07:33] LABS: Blood Urea Nitrogen 113 mg/dL (9-23)
--- NOTE | 2024-03-27 10:16 | DVHPN2 ---
Progress Note Date Seen: Mar 27, 2024 Medical Necessity Reason Pt with a Central, PICC or Fol: No Subjective Patient reports: No new complaints Other Systems: Patient seen and examined by myself today in follow-up Patient examined hemodialysis, blood pressure stable Objective vital signs Vital Sign Date Time Temp Pulse Resp B/P (MAP) Pulse Ox O2 Delivery O2 Flow Rate FiO2 03/27/24 08:00 97.9 67 20 125/72 (89) 92 97.9 03/26/24 20:00 Room Air* 0 21 Total Intake and Output 03/26/24 03/26/24 03/27/24 15:00 23:00 07:00 Intake Total 390 ml 450 ml Output Total 0 ml Balance 390 ml 450 ml medications Current Medications Medications Dose Ordered Sig/Gianna Route Start Time Stop Time Status Last Admin Dose Admin Sodium Chloride 10 ml Q8HR IV 03/24/24 22:00 03/27/24 05:39 10 ML Acetaminophen 650 mg Q6HP PRN PO 03/24/24 21:00 03/26/24 21:22 650 MG Pantoprazole Sodium 40 mg BID IV 03/24/24 22:00 03/26/24 21:22 40 MG Zirconium Oxide 10 gm TID PO 03/25/24 06:00 03/26/24 21:22 10 GM Meropenem 50 ml @ 17 mls/hr DAILY IV 03/26/24 10:00 03/26/24 10:21 17 MLS/HR Sevelamer HCl 2,400 mg TIDWM PO 03/25/24 18:00 03/27/24 08:48 2,400 MG Examination: LUNGS:Normal, CVS:Normal, MSK:Normal laboratory and microbiology Laboratory Tests 03/27/24 05:28 Test 03/27/24 05:28 Range/Units Serum Glucose 91 74-106 mg/dL Microbiology Date/Time Source Procedure Growth Status 03/25/24 04:00 Blood Blood Culture - Preliminary NO GROWTH AFTER 48 HOURS OF INCUBATION. Resulted 03/24/24 20:56 Voided Urine Urine Culture - Preliminary Resulted Problem List/Assessment/Plan Problem List/Assessment/Plan Acute kidney injury superimposed Chronic Kidney Disease secondary hemodynamic mediated Acute pancreatitis Positive MADI, low C3 and low for C4 consistent with lupus nephritis History of gouty nephropathy Severe anemia status post packed red blood cell transfusion Hyperkalemia Metabolic acidosis NSTEMI Hyperphosphatemia Hypocalcemia due to hyperphosphatemia Nephrotic range proteinuria Status post tunneled hemodialysis catheter Recommendations Continue with UF 1-2 L as tolerated Epogen 70087 IV post hemodialysis Packed red blood cell transfusion p.r.n. Rule out GI bleeding, stool occult blood Renvela 2400 mg p.o. t.i.d. with meals Renal diet Radiology for kidney biopsy We will continue to follow Plan discussed with: Patient My Orders My Orders Orders - PREET DOLAN MD Procedure Category Date Status Time * Radiologist Consult CONS 03/26/24 Transmitted 14:40 Lupus Anticoagulant LAB 03/26/24 In Process Comp 14:44 CC Plasma Assessment Blood Product Administration S: [id number] PREET DOLAN MD Mar 27, 2024 10:16
[2024-03-27] MEDS: MAGNESIUM OXIDE 400 MG TAB PO ONE (10:59)
[2024-03-27] MEDS: ONDANSETRON HCL 4 MG/2 ML VIAL IV ONE (11:11)
[2024-03-27] MEDS: HYDROcodone-ACET 5/325MG TAB PO ONE (14:15)
--- NOTE | 2024-03-27 14:51 | DVHPNRES ---
Progress Note Date Seen: Mar 27, 2024 Resident Creating Document: JOSÉ BELTRAN RESIDENT Medical Necessity Reason Pt with a Central, PICC or Fol: No Subjective Review of Systems Patient seen and examined at bedside. Patient currently on room air. Mentioning mild ankle pain bilateral. Patient is currently receiving dialysis alongside 1 unit of PRBC transfusion. Objective vital signs Vital Sign Date Time Temp Pulse Resp B/P (MAP) Pulse Ox O2 Delivery O2 Flow Rate FiO2 03/27/24 13:22 97.7 94 18 97/44 (61) 95 97.7 03/27/24 08:10 Room Air* 0 21 Total Intake and Output 03/26/24 03/26/24 03/27/24 15:00 23:00 07:00 Intake Total 390 ml 450 ml Output Total 0 ml Balance 390 ml 450 ml medications Current Medications Medications Dose Ordered Sig/Gianna Route Start Time Stop Time Status Last Admin Dose Admin Sodium Chloride 10 ml Q8HR IV 03/24/24 22:00 03/27/24 14:24 10 ML Acetaminophen 650 mg Q6HP PRN PO 03/24/24 21:00 03/26/24 21:22 650 MG Pantoprazole Sodium 40 mg BID IV 03/24/24 22:00 03/27/24 10:58 40 MG Zirconium Oxide 10 gm TID PO 03/25/24 06:00 03/26/24 21:22 10 GM Meropenem 50 ml @ 17 mls/hr DAILY IV 03/26/24 10:00 03/27/24 14:26 17 MLS/HR Sevelamer HCl 2,400 mg TIDWM PO 03/25/24 18:00 03/27/24 14:30 2,400 MG Examination Examination General Appearance: Alert, Oriented X3, Cooperative, No acute distress HEENT: EOMI Respiratory: Clear to auscultation, Normal air movement Cardiovascular: Regular rate, Normal S1, Normal S2, tunneled subclavian catheter present on the right side Abdominal: Normal bowel sounds Extremities: Bilateral lower leg pain, No cyanosis, No edema, Normal pulses, No tenderness/swelling Skin: No rashes, No breakdown Neuro: Normal speech and tone laboratory and microbiology Laboratory Tests 03/27/24 05:28 Test 03/27/24 05:28 Range/Units Serum Glucose 91 74-106 mg/dL Microbiology Date/Time Source Procedure Growth Status 03/25/24 04:00 Blood Blood Culture - Preliminary NO GROWTH AFTER 48 HOURS OF INCUBATION. Resulted 03/24/24 20:56 Voided Urine Urine Culture - Preliminary Resulted Labs and/or images reviewed: Labs reviewed by me, Image(s) reviewed by me Problem List/Assessment/Plan Problem List/Assessment/Plan Assessment/plan Neurology Cardiology # NSTEMI type 2 -likely due to MATIAS on CKD -EKG for monitoring Respiratory # Acute hypoxic respiratory failure likely in the setting of severe anemia, volume overload/pulmonary congestion/questionable pneumonia, improving Currently on room air -IV Lasix 100 mg b.i.d. #?Questionable pneumonia, comminuted required, Gram-positive/Gram-negative -IV cefriaxone plus IV doxycycline -sputum culture MRSA screen Hematology # Severe Anemia requiring blood transfusion, normocytic anemia, possibly due to anemia of chronic disease due to CKD, ?GI bleed -transfused with 3 units of PRBC -CBC in the a.m. 1 unit of transfusion starting alongside dialysis Nephrology # MATIAS over CKD ?Glomerulonephritis likely lupus nephritis -nephrology consulted Planning dialysis -FeNA 2.7% -HIV, hep b, hep C, RPR Patient underwent tunneled dialysis catheter today Positive MADI, low C3 and low for C4 consistent with lupus nephritis Rheumatological consult as per recommendation from Nephrology Kidney biopsy for confirmation for diagnosis of lupus nephritis, Radiology consulted Patient is receiving dialysis today # hyperkalemia likely due to MATIAS Corrected # anion gap and non-anion gap metabolic acidosis with compensated respiratory alkalosis likely due to uremic MATIAS -repeat BMP in the morning # hypomagnesemia -slow correction in the setting of MATIAS # hypocalcemia the setting of CKD, dialysis -monitor BMP # hyperphosphatemia likely in the setting of CKD -monitor Infectious disease #?Sepsis likely due to questionable pneumonia -judicious use of IV fluids considering GFR less than three -panculture -IV meropenem #UTI -urine culture -on antibiotcs GI #?GI bleed -IV Protonix 40mg BID, switched to pantoprazole oral -FOBT Endocrine Rheumatology #Gout -not in active flare Lines peripheral IV Line Drips Code status discussed with the patient for >21 min, FULL CODE Nutrition Renal diet DVT prophylaxis currently on hold because of severe anemia Case discussion with DR Kruger Plan discussed with: Patient, Other My Orders My Orders Orders - GIRDHAR,JOSÉ RESIDENT Procedure Category Date Status Time Vitamin D 25-Hydroxy LAB 03/26/24 In Process D2 + D3 17:54 * Rheumatology Consult CONS 03/27/24 Transmitted Packedcell-Noactive BBK 03/27/24 Verified Bleeding 14:48 CC Plasma Assessment Blood Product Administration S: 0630 Date of Service: Mar 27, 2024 Billing Provider: SAGE KRUGER MD Common Visit Codes: [id number] INP/OBS CARE(HIGH) JOSÉ BELTRAN RESIDENT Mar 27, 2024 14:51 SAGE KRUGER MD Mar 27, 2024 22:03
[2024-03-27] MEDS ORDERED: DOXYCYCLINE 100MG/250ML 250 ML IV ONE (17:00)
[2024-03-27] MEDS: cefTRIAXone 1GM/50ML D5W 50 ML IV ONE (18:18)
[2024-03-27] MEDS: HYDROcodone-ACET 5/325MG TAB PO PRN (23:00)
[2024-03-28] VITALS (8 sets, daily range): BP systolic 110–140; BP diastolic 62–82; PULSE 82–92; RESP 16–18; TEMP 97.7–98.5; O2SAT 92–96
[2024-03-28] MEDS: MELATONIN 5 MG TAB PO SCH (00:31)
[2024-03-28] MEDS: PANTOPRAZOLE 40 MG TAB PO SCH (06:03)
[2024-03-28 06:07] LABS: Alkaline Phosphatase 56 U/L (46-116); Anion Gap 13 (5-15); Aspartate Aminotransferase 23 U/L (13-40); BUN/Creatinine Ratio 7.7 (10.0-20.0); Chloride 100 mmol/L (98-107); Glucose 89 mg/dL (74-106); Magnesium 1.7 mg/dL (1.6-2.6); Potassium 3.9 mmol/L (3.5-5.1)
[2024-03-28 06:08] LABS: Total Protein 5.8 g/dL (5.7-8.2)
[2024-03-28 06:18] LABS: Blood Urea Nitrogen 81 mg/dL (9-23); Carbon Dioxide 19 mmol/L (20-31); Sodium 132 mmol/L (136-145)
[2024-03-28 06:20] LABS: Alanine Aminotransferase < 9 U/L (7-40)
[2024-03-28 06:21] LABS: Albumin 2.6 g/dL (3.2-4.8); Bilirubin, Total 0.2 mg/dL (0.2-1.0)
[2024-03-28 06:22] LABS: Calcium 5.8 mg/dL (8.7-10.4)
[2024-03-28 08:40] LABS: Basophils # (auto) 0 10 ^3/uL (0-0.2); Eosinophils # (auto) 0.2 10 ^3/uL (0-0.8); Mean Corpuscular Hemoglobin 28.9 pg (28.0-32.0); Mean Corpuscular Hgb Conc. 33.4 g/dL (32.0-36.0); Mean Corpuscular Volume 86.6 fL (80.0-100.0); Monocytes # (auto) 0.3 10 ^3/uL (0-1.3); Neutrophils # (auto) 2.3 10 ^3/uL (1.6-8.6); White Blood Cell 3.2 10^3/uL (4.4-10.8)
[2024-03-28 08:41] LABS: Basophils % (auto) 0.8 % (0.0-2.0); Eosinophils % (auto) 7.5 % (0.0-7.0); Hematocrit 23.3 % (36.0-46.0); Hemoglobin 7.8 g/dL (12.2-16.2); Lymphocytes # (auto) 0.4 10 ^3/uL (0.4-5.4); Lymphocytes % (auto) 11.1 % (10.0-50.0); Monocytes % (auto) 8.1 % (0.0-12.0); Neutrophils % (auto) 72.5 % (37.0-80.0); Nucleated Red Blood Cells % 0.1 %; Platelet Count (auto) 173 10^3/uL (140-450); Red Blood Cells 2.69 10^6/uL (4.0-5.20); Red Cell Distribution Width 14.4 % (11.8-14.3)
[2024-03-28] MEDS: EPOETIN ALFA-EPBX 10,000 UNIT/1ML VIAL SC ONE (09:11)
[2024-03-28] MEDS: SODIUM CHL 0.9% 1000 ML BAG XX ONE (09:11)
--- NOTE | 2024-03-28 09:58 | ECG ---
[facility] Test Date: 2024-03-27 Test Time: 00:49:55 Pat Name: NORMAN ARAGON Department: Room: 0278T B Gender: F Defensive Line Coach: 0 : 1970 Requested By: BORIS VARMA Order Number: [id number] Reading MD: Andrea Carr Measurements Intervals [place] Rate: 86 P: 42 RI: 114 QRS: 16 QRSD: 93 T: 22 QT: 372 QTc: 445 Interpretive Statements Sinus rhythm Borderline short RI interval ST elev, probable normal early repol pattern Baseline wander in lead(s) V6 Electronically Signed On 03-29-2024 15:35:03 PST by Andrea Carr Please click the below link to view image of tracing.
--- NOTE | 2024-03-28 12:21 | DVHPNRES ---
Progress Note Date Seen: Mar 28, 2024 Resident Creating Document: AAMIR VEE RESIDENT Medical Necessity Reason Pt with a Central, PICC or Fol: No Subjective Review of Systems Patient is a 53-year-old female with past medical history of gout, who came in as she said she was not feeling well for the last 2 days. Patient notes that she has been experiencing cough, chest pain localized to subcostal area and a loss of appetite, denies having similar symptoms before. Of note, patient lives in [facility] and is currently visiting the [facility]. In the ER patient was noted to have a hemoglobin of 4 and subsequently she was transfused with 3 PRBCs. BUN was noted to be 114 and a creatinine of 12.7 with GFR 3, Nephrology was taken on board. Past surgical history: Right eye surgery Home medications: Colchicine, allopurinol Past Hospitalization: Denies Social & Personal history: Patient lives alone, denies using tobacco, alcohol, drugs. Allergies: Denies Patient seen and examined at bedside. Patient is alert and oriented to time, place person and responding to all questions. General: Fatigue Eyes: No Pain, No Vision change, No Conjunctivae inflammation, No Eyelid inflammation, No Other, No Redness ENT: No Ear pain, No Ear discharge, No Nose pain, No Nose discharge, No Nose congestion, No Mouth pain, No Mouth swelling, No Throat pain, No Throat swelling, No Other Cardiovascular: No Chest Pain, No Palpitations, Dyspnea, No Edema, No Lt Headedness, No Other Respiratory: No Cough, No Dry, Shortness of breath, Wheezing, No Hemoptysis, No Pleuritic Pain, No Sputum, No Other Gastrointestinal: No Nausea, No Vomiting, No Abdominal Pain, No Diarrhea, No Constipation, No Melena, No Hematochezia, No Other Genitourinary: No Dysuria, No Frequency, No Incontinence, No Hematuria, No Retention, No Other Musculoskeletal: Patient notes increased twitching in bilateral fingers, No other, No neck pain, No shoulder pain, No arm pain, No back pain, No hand pain, No leg pain, right foot pain Skin: No Rash, No Lesions, No Jaundice, No Bruising, No Other Psychiatric: Reports feeling more depressed than usual, anxiety. Denies any suicidal intent or ideation. Objective vital signs Vital Sign Date Time Temp Pulse Resp B/P (MAP) Pulse Ox O2 Delivery O2 Flow Rate FiO2 03/28/24 08:59 98.3 86 18 113/62 (79) 94 98.3 03/28/24 08:00 Room Air* 0 21 Total Intake and Output 03/27/24 03/27/24 03/28/24 15:00 23:00 07:00 Intake Total 570 ml 780 ml 150 ml Balance 570 ml 780 ml 150 ml medications Current Medications Medications Dose Ordered Sig/Gianna Route Start Time Stop Time Status Last Admin Dose Admin Sodium Chloride 10 ml Q8HR IV 03/24/24 22:00 03/28/24 06:03 10 ML Acetaminophen 650 mg Q6HP PRN PO 03/24/24 21:00 03/26/24 21:22 650 MG Zirconium Oxide 10 gm TID PO 03/25/24 06:00 03/26/24 21:22 10 GM Pantoprazole Sodium 40 mg DAILY@0600 PO 03/28/24 06:00 03/28/24 06:03 40 MG Melatonin 5 mg HS PO 03/28/24 00:04 03/28/24 00:31 5 MG Acetaminophen/ Hydrocodone Bitart 1 tab Q6HPRN PRN PO 03/27/24 22:45 03/27/24 23:00 1 TAB Calcium Acetate 2,100 mg TIDWMEALS PO 03/28/24 12:00 UNV Mycophenolate Mofetil 500 mg BID PO 03/28/24 22:00 UNV Methylprednisolone Sodium Succinate 500 mg/Sodium Chloride 100 ml @ 200 mls/hr DAILY IV 03/28/24 11:15 04/01/24 11:00 UNV Examination General Appearance: Cooperative. Well developed. Well nourished. In moderate distress Head Exam: Normal inspection. An ulcer noted on the mucosal surface of the lower lip, negative Chvostek sign Neck Exam: Normal inspection. Non-tender. Normal alignment Pulmonary/Respiratory: Chest non-tender. Clear bilateral breath sounds, no crackles, no wheezing. Cardiovascular/Chest: Regular rate and rhythm. No murmurs. No JVD. Peripheral Pulses: 2+ Radial (R). 2+ Radial (L). 2+ Pedal (R). 2+ Pedal (L) Abdominal Exam: Normal bowel sounds. Soft. normal abdomen, no visible veins, Nontender. No hepatospenomegaly. No masses Ankle Exam: Negative ankle edema Lower extremities: Negative lower extremity edema Neuro/Mental Status: A&O x4. Coherent. Thoughts/Psych: Normal thought pattern. Appropriate mood and affect. Good judgement and insight Skin Exam: Normal inspection. Normal color. Warm. Dry laboratory and microbiology Laboratory Tests 03/28/24 04:34 Test 03/28/24 04:34 Range/Units Serum Glucose 89 74-106 mg/dL Microbiology Date/Time Source Procedure Growth Status 03/25/24 04:00 Blood Blood Culture - Preliminary NO GROWTH AFTER 72 HOURS OF INCUBATION. Resulted 03/24/24 20:56 Voided Urine Urine Culture - Preliminary Resulted Labs and/or images reviewed: Labs reviewed by me, Image(s) reviewed by me Problem List/Assessment/Plan Problem List/Assessment/Plan Cardiology # NSTEMI type 2 -likely due to MATIAS on CKD -EKG for monitoring Respiratory # Acute hypoxic respiratory failure likely in the setting of severe anemia, volume overload/pulmonary congestion/questionable pneumonia, improving Currently on room air -IV Lasix 100 mg b.i.d. #?Questionable pneumonia, comminuted required, Gram-positive/Gram-negative -IV cefriaxone plus IV doxycycline -sputum culture MRSA screen Hematology # Severe Anemia requiring blood transfusion, normocytic anemia, possibly due to anemia of chronic disease due to CKD, ?GI bleed -transfused with 3 units of PRBC -CBC in the a.m. 1 unit of transfusion starting alongside dialysis yesterday on 03/27/2024, HB stable today at 7.8 Nephrology # MATIAS over CKD ?Glomerulonephritis likely lupus nephritis -nephrology consulted Planning dialysis -FeNA 2.7% -HIV, hep b, hep C, RPR - methylprednisolone 500 mg, mycophenolate 500 mg p.o. b.i.d. - discontinued sevelamer, started calcium acetate 2100 mg t.i.d. with meals Positive MADI, low C3 and low for C4 consistent with lupus nephritis Rheumatological consult as per recommendation from Nephrology Kidney biopsy for confirmation for diagnosis of lupus nephritis, Radiology consulted Patient received dialysis yesterday # hyperkalemia likely due to MATIAS , resolved Corrected # anion gap and non-anion gap metabolic acidosis with compensated respiratory alkalosis likely due to uremic MATIAS -repeat BMP in the morning # hypomagnesemia -slow correction in the setting of MATIAS # hypocalcemia the setting of CKD, dialysis -monitor BMP - calcium acetate 2100 mg t.i.d. with meals # hyperphosphatemia likely in the setting of CKD -monitor Infectious disease #?Sepsis likely due to questionable pneumonia -judicious use of IV fluids considering GFR less than three -panculture #UTI -urine culture -on antibiotcs GI #?GI bleed -IV Protonix 40mg BID, switched to pantoprazole oral -FOBT Endocrine Rheumatology/Integumentary #Gout -not in active flare # mucosal ulcer on the inside surface of lower lip - 2% topica lidocaine q8h prn Lines peripheral IV Line Drips Code status discussed with the patient for >21 min, FULL CODE Nutrition Renal diet DVT prophylaxis currently on hold because of severe anemia Plan discussed with Dr. Kruger Plan discussed with Dr. Lieberman Plan discussed with: Patient, Other (RN) My Orders My Orders Orders - AAMIR VEE RESIDENT Procedure Category Date Status Time Calcium Acetate PHA 03/28/24 Logged Capsule (Phoslo 12:00 Mycophenolate Mofetil PHA 03/28/24 Logged (Cellcept) 22:00 Methylprednisolone PHA 03/28/24 Logged Sod Succ (Solu Medrol 11:15 CC Plasma Assessment Blood Product Administration S: 0630 Date of Service: Mar 28, 2024 Billing Provider: SAGE KRUGER MD Common Visit Codes: [id number] INP/OBS CARE(HIGH) AAMIR VEE Mar 28, 2024 12:21 SAGE KRUGER MD Mar 28, 2024 21:37
--- NOTE | 2024-03-28 12:23 | DVHPN2 ---
Progress Note Date Seen: Mar 28, 2024 Medical Necessity Reason Pt with a Central, PICC or Fol: No Subjective Patient reports: No new complaints Other Systems: Patient seen and examined by myself today in follow-up Objective vital signs Vital Sign Date Time Temp Pulse Resp B/P (MAP) Pulse Ox O2 Delivery O2 Flow Rate FiO2 03/28/24 08:59 98.3 86 18 113/62 (79) 94 98.3 03/28/24 08:00 Room Air* 0 21 Total Intake and Output 03/27/24 03/27/24 03/28/24 15:00 23:00 07:00 Intake Total 570 ml 780 ml 150 ml Balance 570 ml 780 ml 150 ml medications Current Medications Medications Dose Ordered Sig/Gianna Route Start Time Stop Time Status Last Admin Dose Admin Sodium Chloride 10 ml Q8HR IV 03/24/24 22:00 03/28/24 06:03 10 ML Acetaminophen 650 mg Q6HP PRN PO 03/24/24 21:00 03/26/24 21:22 650 MG Zirconium Oxide 10 gm TID PO 03/25/24 06:00 03/26/24 21:22 10 GM Pantoprazole Sodium 40 mg DAILY@0600 PO 03/28/24 06:00 03/28/24 06:03 40 MG Melatonin 5 mg HS PO 03/28/24 00:04 03/28/24 00:31 5 MG Acetaminophen/ Hydrocodone Bitart 1 tab Q6HPRN PRN PO 03/27/24 22:45 03/27/24 23:00 1 TAB Calcium Acetate 2,100 mg TIDWMEALS PO 03/28/24 12:00 UNV Mycophenolate Mofetil 500 mg BID PO 03/28/24 22:00 UNV Methylprednisolone Sodium Succinate 500 mg/Sodium Chloride 100 ml @ 200 mls/hr DAILY IV 03/28/24 11:15 04/01/24 11:00 UNV Examination: LUNGS:Normal, CVS:Normal, MSK:Normal laboratory and microbiology Laboratory Tests 03/28/24 04:34 Test 03/28/24 04:34 Range/Units Serum Glucose 89 74-106 mg/dL Microbiology Date/Time Source Procedure Growth Status 03/25/24 04:00 Blood Blood Culture - Preliminary NO GROWTH AFTER 72 HOURS OF INCUBATION. Resulted 03/24/24 20:56 Voided Urine Urine Culture - Preliminary Resulted Problem List/Assessment/Plan Problem List/Assessment/Plan Acute kidney injury superimposed Chronic Kidney Disease secondary hemodynamic mediated Acute pancreatitis Positive MADI, low C3 and low for C4 consistent with lupus nephritis History of gouty nephropathy Severe anemia status post packed red blood cell transfusion Hyperkalemia Metabolic acidosis NSTEMI Hyperphosphatemia Hypocalcemia due to hyperphosphatemia Nephrotic range proteinuria Status post tunneled hemodialysis catheter Recommendations Hemodialysis tomorrow Epogen 24603 IV post hemodialysis Packed red blood cell transfusion p.r.n. Rule out GI bleeding, stool occult blood Calcium acetate 2001 mg p.o. t.i.d. with meals Start Solu-Medrol 500 mg IV q.day for three doses Start mycophenolate 500 mg p.o. b.i.d. Rheumatology consult Renal diet Radiology for kidney biopsy We will continue to follow Plan discussed with: Patient CC Plasma Assessment Blood Product Administration S: 0630 PREET DOLAN MD Mar 28, 2024 12:23
[2024-03-28] MEDS: CALCIUM ACETATE 667 MG CAP PO SCH ×2 (13:33→17:46)
[2024-03-28] MEDS: methylPREDNISolone SOD SUCC 500 MG in SODIUM CHL 0.9% 100 ML IV SCH (13:57)
[2024-03-28] MEDS ORDERED: LIDOCAINE 2% TOPICAL JELLY 5 ML URJT TOP PRN (17:45)
[2024-03-28] MEDS: DOXYCYCLINE 100MG/250ML 250 ML IV SCH (18:44)
[2024-03-28] MEDS: MYCOPHENOLATE 500 MG TAB PO SCH (21:05)
[2024-03-29] VITALS (8 sets, daily range): BP systolic 134–160; BP diastolic 77–88; PULSE 75–88; RESP 17–19; TEMP 97.8–98.6; O2SAT 93–98
[2024-03-29] MEDS: fentaNYL CITRATE 100 MCG/2 ML VL IV ONE (08:15)
[2024-03-29] MEDS: MIDAZOLAM HCL 2MG/2ML 2ml VIAL (1mg/ml) IV ONE (08:15)
[2024-03-29] MEDS: cefTRIAXone 1GM/50ML D5W 50 ML IV SCH (08:22)
[2024-03-29] MEDS: ONDANSETRON HCL 4 MG/2 ML VIAL IV PRN (08:34)
[2024-03-29] MEDS: hydrALAZINE HCL 20 MG/ML VL ONE (09:10)
[2024-03-29 09:12] LABS: Hepatitis B Surface Antigen Negative (Negative)
[2024-03-29 09:30] LABS: Hepatitis C Antibody Negative (Negative)
[2024-03-29 11:31] LABS: Basophils # (auto) 0 10 ^3/uL (0-0.2); Eosinophils # (auto) 0 10 ^3/uL (0-0.8); Eosinophils % (auto) 0.1 % (0.0-7.0); Lymphocytes # (auto) 0.3 10 ^3/uL (0.4-5.4); Monocytes # (auto) 0.1 10 ^3/uL (0-1.3); Neutrophils # (auto) 3.7 10 ^3/uL (1.6-8.6); White Blood Cell 4.1 10^3/uL (4.4-10.8)
[2024-03-29 11:33] LABS: Hematocrit 23.7 % (36.0-46.0); Mean Corpuscular Hemoglobin 29.5 pg (28.0-32.0); Mean Corpuscular Volume 86.8 fL (80.0-100.0); Monocytes % (auto) 2.5 % (0.0-12.0); Neutrophils % (auto) 90.4 % (37.0-80.0); Nucleated Red Blood Cells % 0.2 %; Platelet Count (auto) 168 10^3/uL (140-450); Red Blood Cells 2.73 10^6/uL (4.0-5.20); Red Cell Distribution Width 14.3 % (11.8-14.3)
[2024-03-29 11:37] LABS: Anion Gap 14 (5-15); Potassium 3.6 mmol/L (3.5-5.1)
[2024-03-29 11:43] LABS: BUN/Creatinine Ratio 7.8 (10.0-20.0)
[2024-03-29 11:44] LABS: Carbon Dioxide 17 mmol/L (20-31); Chloride 93 mmol/L (98-107); Glucose 125 mg/dL (74-106); Magnesium 1.8 mg/dL (1.6-2.6); Sodium 124 mmol/L (136-145)
[2024-03-29 11:47] LABS: Blood Urea Nitrogen 86 mg/dL (9-23); Calcium 5.8 mg/dL (8.7-10.4)
[2024-03-29 12:06] LABS: Antiglomerular BM Antibody <0.2 units (0.0-0.9); Antimyeloperoxidase (MPO) Ab >8.0 units (0.0-0.9); Antiproteinase 3 (PR-3) Ab <0.2 units (0.0-0.9)
--- NOTE | 2024-03-29 12:22 | DVHPN2 ---
Progress Note Date Seen: Mar 29, 2024 Medical Necessity Reason Pt with a Central, PICC or Fol: Yes The following are medically ne: Castellon Catheter Subjective Patient reports: Feels better, Other (seen on HD) Objective vital signs Vital Sign Date Time Temp Pulse Resp B/P (MAP) Pulse Ox O2 Delivery O2 Flow Rate FiO2 03/29/24 09:10 171/116 03/29/24 09:00 97.8 81 18 95 97.8 03/28/24 19:55 Room Air* 0 21 Total Intake and Output 03/28/24 03/28/24 03/29/24 15:00 23:00 07:00 Intake Total 700 ml 1210 ml Balance 700 ml 1210 ml medications Current Medications Medications Dose Ordered Sig/Gianna Route Start Time Stop Time Status Last Admin Dose Admin Sodium Chloride 10 ml Q8HR IV 03/24/24 22:00 03/29/24 05:20 10 ML Acetaminophen 650 mg Q6HP PRN PO 03/24/24 21:00 03/26/24 21:22 650 MG Zirconium Oxide 10 gm TID PO 03/25/24 06:00 03/29/24 05:03 10 GM Pantoprazole Sodium 40 mg DAILY@0600 PO 03/28/24 06:00 03/29/24 05:03 40 MG Melatonin 5 mg HS PO 03/28/24 00:04 03/28/24 21:02 5 MG Acetaminophen/ Hydrocodone Bitart 1 tab Q6HPRN PRN PO 03/27/24 22:45 03/29/24 05:14 1 TAB Mycophenolate Mofetil 500 mg BID PO 03/28/24 22:00 03/28/24 21:05 500 MG Methylprednisolone Sodium Succinate 500 mg/Sodium Chloride 100 ml @ 200 mls/hr DAILY IV 03/28/24 11:15 04/01/24 11:00 03/28/24 13:57 200 MLS/HR Ceftriaxone Sodium 50 ml @ 100 mls/hr DAILY@09 IV 03/29/24 09:00 03/29/24 08:22 100 MLS/HR Calcium Acetate 2,001 mg TIDWMEALS PO 03/28/24 18:00 03/28/24 17:46 2,001 MG Ondansetron HCl 4 mg Q6HPRN PRN IV 03/28/24 16:15 03/29/24 08:34 4 MG Doxycycline Hyclate 250 ml @ 125 mls/hr Q12H IV 03/28/24 17:00 03/31/24 17:00 03/29/24 05:03 125 MLS/HR Lidocaine HCl 2 ml Q8HPRN PRN TOP 03/28/24 17:45 Examination: GENERAL:Normal, CVS:Normal laboratory and microbiology Laboratory Tests 03/29/24 10:45 Test 03/29/24 10:45 Range/Units Serum Glucose 125 H 74-106 mg/dL Microbiology Date/Time Source Procedure Growth Status 03/25/24 04:00 Blood Blood Culture - Preliminary NO GROWTH AFTER 72 HOURS OF INCUBATION. Resulted 03/24/24 20:56 Voided Urine Urine Culture - Final Enterococcus faecalis Complete Problem List/Assessment/Plan Problem List/Assessment/Plan Acute kidney injury likely due to acute GN baseline renal function is unknown Acute pancreatitis Positive MADI, low C3 and low for C4 consistent with lupus nephritis History of gouty nephropathy Severe anemia status post packed red blood cell transfusion Hyperkalemia Metabolic acidosis NSTEMI Hyperphosphatemia Hypocalcemia due to hyperphosphatemia Nephrotic range proteinuria Status post tunneled hemodialysis catheter Hemodialysis today Epogen 12116 IV post hemodialysis Packed red blood cell transfusion p.r.n. Rule out GI bleeding, stool occult blood Calcium acetate 2001 mg p.o. t.i.d. with meals Start Solu-Medrol 500 mg IV q.day for three doses Start mycophenolate 500 mg p.o. b.i.d. Rheumatology consult Renal diet Radiology for kidney biopsy today Plan discussed with: Patient CC Plasma Assessment Blood Product Administration S: 0630 KOMAL VINES MD Mar 29, 2024 12:22
--- NOTE | 2024-03-29 12:31 | DVH ---
PROCEDURE: CT GUIDED BIOPSY OF Kidney HISTORY: RENAL BX DOCUMENTATION: Informed consent was obtained and a procedural time out was performed. SEDATION: Moderate sedation was utilized during the procedure. 10 mg Hydralazine was given IV. The ada corcoran received benzodiazepines and opioids, the dosing of which was [facility] medical record. Pre-sedation history and evaluation revealed no contraindications to sedation. T he patient s level of consciousness and physiologic status was monitored continuously by the physicia n and nursing staff throughout the procedure. Total intra-service moderate sedation time was 45 minut . TECHNIQUE: The skin over the right flank was sterilely prepped, draped, and infiltrated with 1% lidoc linda. Using CT guidance, a 17-gauge coaxial needle was directed into the right kidney. The 18-gauge T emno biopsy needle was inserted coaxially and 2 core biopsy specimens were obtained. The coaxial nee dle was then removed and hemostasis was achieved with manual compression. Sterile dressings were appl ied. FINDINGS: Limited CT imaging demonstrates the right kidney. Imaging confirms the needle tip within th e right renal cortex. Post-biopsy CT imaging showed no apparent complication. IMPRESSION: CT GUIDED BIOPSY OF the right kidney. PLEASE FOLLOW UP WITH PATHOLOGY FOR FINAL RESULTS. Please have patient supine for 3 hours.
--- NOTE | 2024-03-29 12:31 | DVH ---
PROCEDURE: CT GUIDED BIOPSY OF Kidney HISTORY: RENAL BX DOCUMENTATION: Informed consent was obtained and a procedural time out was performed. SEDATION: Moderate sedation was utilized during the procedure. 10 mg Hydralazine was given IV. The ada corcoran received benzodiazepines and opioids, the dosing of which was documented in the [facility] s [facility] medical record. Pre-sedation history and evaluation revealed no contraindications to sedation. T he patient s level of consciousness and physiologic status was monitored continuously by the physicia n and nursing staff throughout the procedure. Total intra-service moderate sedation time was 45 minut . TECHNIQUE: The skin over the right flank was sterilely prepped, draped, and infiltrated with 1% lidoc linda. Using CT guidance, a 17-gauge coaxial needle was directed into the right kidney. The 18-gauge T emno biopsy needle was inserted coaxially and 2 core biopsy specimens were obtained. The coaxial nee dle was then removed and hemostasis was achieved with manual compression. Sterile dressings were appl ied. FINDINGS: Limited CT imaging demonstrates the right kidney. Imaging confirms the needle tip within th e right renal cortex. Post-biopsy CT imaging showed no apparent complication. IMPRESSION: CT GUIDED BIOPSY OF the right kidney. PLEASE FOLLOW UP WITH PATHOLOGY FOR FINAL RESULTS. Please have patient supine for 3 hours.
[2024-03-29] MEDS: SODIUM CHL 0.9% 1000 ML BAG XX ONE (13:30)
--- NOTE | 2024-03-29 13:49 | DVHPNRES ---
Progress Note Date Seen: Mar 29, 2024 Resident Creating Document: JOSÉ BELTRAN RESIDENT Medical Necessity Reason Pt with a Central, PICC or Fol: Yes The following are medically ne: Castellon Catheter Subjective Review of Systems Patient seen and examined at bedside. Patient is not complaining of any active symptoms Patient underwent kidney biopsy today Patient is currently getting dialysis. Objective vital signs Vital Sign Date Time Temp Pulse Resp B/P (MAP) Pulse Ox O2 Delivery O2 Flow Rate FiO2 03/29/24 13:00 97.9 80 18 160/88 (112) 96 97.9 03/28/24 19:55 Room Air* 0 21 Total Intake and Output 03/28/24 03/28/24 03/29/24 15:00 23:00 07:00 Intake Total 700 ml 1210 ml Balance 700 ml 1210 ml medications Current Medications Medications Dose Ordered Sig/Gianna Route Start Time Stop Time Status Last Admin Dose Admin Sodium Chloride 10 ml Q8HR IV 03/24/24 22:00 03/29/24 05:20 10 ML Acetaminophen 650 mg Q6HP PRN PO 03/24/24 21:00 03/26/24 21:22 650 MG Zirconium Oxide 10 gm TID PO 03/25/24 06:00 03/29/24 05:03 10 GM Pantoprazole Sodium 40 mg DAILY@0600 PO 03/28/24 06:00 03/29/24 05:03 40 MG Melatonin 5 mg HS PO 03/28/24 00:04 03/28/24 21:02 5 MG Acetaminophen/ Hydrocodone Bitart 1 tab Q6HPRN PRN PO 03/27/24 22:45 03/29/24 05:14 1 TAB Mycophenolate Mofetil 500 mg BID PO 03/28/24 22:00 03/28/24 21:05 500 MG Methylprednisolone Sodium Succinate 500 mg/Sodium Chloride 100 ml @ 200 mls/hr DAILY IV 03/28/24 11:15 04/01/24 11:00 03/28/24 13:57 200 MLS/HR Ceftriaxone Sodium 50 ml @ 100 mls/hr DAILY@09 IV 03/29/24 09:00 03/29/24 08:22 100 MLS/HR Calcium Acetate 2,001 mg TIDWMEALS PO 03/28/24 18:00 03/28/24 17:46 2,001 MG Ondansetron HCl 4 mg Q6HPRN PRN IV 03/28/24 16:15 03/29/24 08:34 4 MG Doxycycline Hyclate 250 ml @ 125 mls/hr Q12H IV 03/28/24 17:00 03/31/24 17:00 03/29/24 05:03 125 MLS/HR Lidocaine HCl 2 ml Q8HPRN PRN TOP 03/28/24 17:45 Examination Examination General Appearance: Alert, Oriented X3, Cooperative, No acute distress HEENT: EOMI Respiratory: Clear to auscultation, Normal air movement Cardiovascular: Regular rate, Normal S1, Normal S2, tunneled subclavian catheter present on the right side Abdominal: Normal bowel sounds Extremities: Bilateral lower leg pain, No cyanosis, No edema, Normal pulses, No tenderness/swelling Skin: No rashes, No breakdown Neuro: Normal speech and tone laboratory and microbiology Laboratory Tests 03/29/24 10:45 Test 03/29/24 10:45 Range/Units Serum Glucose 125 H 74-106 mg/dL Microbiology Date/Time Source Procedure Growth Status 03/25/24 04:00 Blood Blood Culture - Preliminary NO GROWTH AFTER 72 HOURS OF INCUBATION. Resulted 03/24/24 20:56 Voided Urine Urine Culture - Final Enterococcus faecalis Complete Labs and/or images reviewed: Labs reviewed by me, Image(s) reviewed by me Problem List/Assessment/Plan Problem List/Assessment/Plan Assessment/plan Neurology Cardiology # NSTEMI type 2 -likely due to MATIAS on CKD -EKG for monitoring Respiratory # Acute hypoxic respiratory failure likely in the setting of severe anemia, volume overload/pulmonary congestion/questionable pneumonia, improving Currently on room air -IV Lasix 100 mg b.i.d. #?Questionable pneumonia, comminuted required, Gram-positive/Gram-negative -IV cefriaxone plus IV doxycycline -sputum culture MRSA screen Hematology # Severe Anemia requiring blood transfusion, normocytic anemia, possibly due to anemia of chronic disease due to CKD, ?GI bleed -transfused with 4 units of PRBC -CBC in the a.m. Nephrology # MATIAS over CKD ?Glomerulonephritis likely lupus nephritis -nephrology consulted Planning dialysis -FeNA 2.7% -HIV, hep b, hep C, RPR Patient underwent tunneled dialysis catheter today Positive MADI, low C3 and low for C4 consistent with lupus nephritis Rheumatological consult as per recommendation from Nephrology Kidney biopsy for confirmation for diagnosis of lupus nephritis, Radiology consulted Patient is receiving dialysis today Patient underwent kidney biopsy today Patient was started on Solu-Medrol 500 mg daily mycophenolate mofetil 500 mg p.o. b.i.d. # hyperkalemia likely due to MATIAS Corrected # anion gap and non-anion gap metabolic acidosis with compensated respiratory alkalosis likely due to uremic MATIAS -repeat BMP in the morning # hypomagnesemia -slow correction in the setting of MATIAS # hypocalcemia the setting of CKD, dialysis -monitor BMP - discontinued sevelamer, started calcium acetate 2100 mg t.i.d. with meals by drying room attendant # hyperphosphatemia likely in the setting of CKD -monitor Infectious disease #?Sepsis likely due to questionable pneumonia -judicious use of IV fluids considering GFR less than three -panculture -IV meropenem #UTI -urine culture -on antibiotcs GI #?GI bleed -IV Protonix 40mg BID, switched to pantoprazole oral -FOBT Endocrine Rheumatology #Gout -not in active flare Lines peripheral IV Line Drips Code status discussed with the patient for >21 min, FULL CODE Nutrition Renal diet DVT prophylaxis currently on hold because of severe anemia Case discussion with DR Bishop Plan discussed with: Patient, Other My Orders My Orders Orders - JOSÉ BELTRAN Procedure Category Date Status Time Renal DIET 03/29/24 Transmitted Standard(2gna,3gk,Lopho) Lunch CC Plasma Assessment Blood Product Administration S: 0630 Date of Service: Mar 29, 2024 Billing Provider: EMILIE BISHOP MD Common Visit Codes: [id number] INP/OBS CARE(HIGH) JOSÉ BELTRAN Mar 29, 2024 13:49 EMILIE BISHOP MD Mar 30, 2024 12:59
[2024-03-29 14:06] LABS: Dilute Prothrombin Time(dPT) 35.8 sec (0.0-47.6); Lupus Interpretation Comment: (.); PTT-LA 35.2 sec (0.0-43.5); Thrombin Time 17.5 sec (0.0-23.0); dPT Confirm Ratio 1.09 Ratio (0.00-1.34); dRVVT 45.7 sec (0.0-47.0)
[2024-03-29] MEDS: EPOETIN ALFA-EPBX 10,000 UNIT/1ML VIAL SC ONE (20:17)
[2024-03-30] VITALS (7 sets, daily range): BP systolic 136–159; BP diastolic 82–108; PULSE 76–88; RESP 16–20; TEMP 97.9–98.7; O2SAT 92–97
[2024-03-30 06:31] LABS: Anion Gap 10 (5-15); Carbon Dioxide 25 mmol/L (20-31)
[2024-03-30 06:37] LABS: BUN/Creatinine Ratio 7.5 (10.0-20.0)
[2024-03-30 06:38] LABS: Blood Urea Nitrogen 51 mg/dL (9-23); Calcium 6.9 mg/dL (8.7-10.4); Chloride 92 mmol/L (98-107); Glucose 112 mg/dL (74-106); Potassium 3.1 mmol/L (3.5-5.1); Sodium 127 mmol/L (136-145)
[2024-03-30 06:40] LABS: Magnesium 1.5 mg/dL (1.6-2.6); Phosphorus 5.9 mg/dL (2.4-5.1)
[2024-03-30 06:43] LABS: Basophils # (auto) 0 10 ^3/uL (0-0.2); Eosinophils # (auto) 0 10 ^3/uL (0-0.8); Hemoglobin 8.3 g/dL (12.2-16.2); Lymphocytes # (auto) 0.5 10 ^3/uL (0.4-5.4); Monocytes # (auto) 0.6 10 ^3/uL (0-1.3); Neutrophils # (auto) 5.9 10 ^3/uL (1.6-8.6)
[2024-03-30 06:46] LABS: Hematocrit 24.2 % (36.0-46.0); Lymphocytes % (auto) 6.5 % (10.0-50.0); Mean Corpuscular Hemoglobin 29.2 pg (28.0-32.0); Mean Corpuscular Hgb Conc. 34.3 g/dL (32.0-36.0); Mean Corpuscular Volume 85.2 fL (80.0-100.0); Monocytes % (auto) 8.7 % (0.0-12.0); Neutrophils % (auto) 84.8 % (37.0-80.0); Nucleated Red Blood Cells % 0.1 %; Platelet Count (auto) 182 10^3/uL (140-450); Red Blood Cells 2.84 10^6/uL (4.0-5.20); Red Cell Distribution Width 14.5 % (11.8-14.3)
[2024-03-30] MEDS: MAGNESIUM SULFATE 1GM/100ML 100 ML IV SCH (08:30)
[2024-03-30] MEDS: POTASSIUM EFFERVESENT TAB 25 MEQ PO ONE (09:14)
--- NOTE | 2024-03-30 13:04 | DVHPNRES ---
Progress Note Date Seen: Mar 30, 2024 Resident Creating Document: JOSÉ BELTRAN RESIDENT Medical Necessity Reason Pt with a Central, PICC or Fol: Yes The following are medically ne: Castellon Catheter Subjective Review of Systems pt seen and examined at bedside, currently is on room air. She is mentioning of mild nausea but no other complaints. Objective vital signs Vital Sign Date Time Temp Pulse Resp B/P (MAP) Pulse Ox O2 Delivery O2 Flow Rate FiO2 03/30/24 08:10 98.4 78 16 159/108 (125) 96 98.4 03/30/24 08:00 Room Air* 0 21 Total Intake and Output 03/29/24 03/29/24 03/30/24 15:00 23:00 07:00 Intake Total 300 ml 30 ml 850 ml Output Total 1500 ml 500 ml Balance 300 ml -1470 ml 350 ml medications Current Medications Medications Dose Ordered Sig/Gianna Route Start Time Stop Time Status Last Admin Dose Admin Sodium Chloride 10 ml Q8HR IV 03/24/24 22:00 03/30/24 06:38 10 ML Acetaminophen 650 mg Q6HP PRN PO 03/24/24 21:00 03/30/24 08:13 650 MG Pantoprazole Sodium 40 mg DAILY@0600 PO 03/28/24 06:00 03/30/24 06:38 40 MG Melatonin 5 mg HS PO 03/28/24 00:04 03/29/24 21:32 5 MG Acetaminophen/ Hydrocodone Bitart 1 tab Q6HPRN PRN PO 03/27/24 22:45 03/29/24 16:21 1 TAB Mycophenolate Mofetil 500 mg BID PO 03/28/24 22:00 03/30/24 10:55 500 MG Methylprednisolone Sodium Succinate 500 mg/Sodium Chloride 100 ml @ 200 mls/hr DAILY IV 03/28/24 11:15 04/01/24 11:00 03/30/24 12:23 200 MLS/HR Ceftriaxone Sodium 50 ml @ 100 mls/hr DAILY@09 IV 03/29/24 09:00 03/30/24 11:54 100 MLS/HR Calcium Acetate 2,001 mg TIDWMEALS PO 03/28/24 18:00 03/30/24 12:09 2,001 MG Ondansetron HCl 4 mg Q6HPRN PRN IV 03/28/24 16:15 03/30/24 08:13 4 MG Doxycycline Hyclate 250 ml @ 125 mls/hr Q12H IV 03/28/24 17:00 03/31/24 17:00 03/30/24 04:18 125 MLS/HR Lidocaine HCl 2 ml Q8HPRN PRN TOP 03/28/24 17:45 Examination Examination General Appearance: Alert, Oriented X3, Cooperative, No acute distress HEENT: EOMI Respiratory: Clear to auscultation, Normal air movement Cardiovascular: Regular rate, Normal S1, Normal S2, tunneled subclavian catheter present on the right side Abdominal: Normal bowel sounds Extremities: Bilateral lower leg pain, No cyanosis, No edema, Normal pulses, No tenderness/swelling Skin: No rashes, No breakdown Neuro: Normal speech and tone POCUS DONE at bedside, no evidence of any vegetation. laboratory and microbiology Laboratory Tests 03/30/24 05:30 Test 03/30/24 05:30 Range/Units Serum Glucose 112 H 74-106 mg/dL Microbiology Date/Time Source Procedure Growth Status 03/25/24 04:00 Blood Blood Culture - Final NO GROWTH AFTER 5 DAYS OF INCUBATION. Complete 03/24/24 20:56 Voided Urine Urine Culture - Final Enterococcus faecalis Complete Labs and/or images reviewed: Labs reviewed by me, Image(s) reviewed by me Problem List/Assessment/Plan Problem List/Assessment/Plan Assessment/plan Neurology Cardiology # NSTEMI type 2 -likely due to MATIAS on CKD -EKG for monitoring Respiratory # Acute hypoxic respiratory failure likely in the setting of severe anemia, volume overload/pulmonary congestion/questionable pneumonia, improving Currently on room air -IV Lasix 100 mg b.i.d, discontinued #?Questionable pneumonia, comminuted required, Gram-positive/Gram-negative -IV cefriaxone plus IV doxycycline -sputum culture MRSA screen Hematology # Severe Anemia requiring blood transfusion, normocytic anemia, possibly due to anemia of chronic disease due to CKD, ?GI bleed -transfused with 4 units of PRBC -CBC in the a.m. Nephrology # MATIAS over CKD ?Glomerulonephritis likely lupus nephritis -nephrology consulted Planning dialysis -FeNA 2.7% -HIV, hep b, hep C, RPR Patient underwent tunneled dialysis catheter today Positive MADI, low C3 and low for C4 consistent with lupus nephritis Rheumatological consult as per recommendation from Nephrology Kidney biopsy for confirmation for diagnosis of lupus nephritis, Radiology consulted Patient is receiving dialysis yesterday Patient underwent kidney biopsy yesterday Patient was started on Solu-Medrol 500 mg daily mycophenolate mofetil 500 mg p.o. b.i.d. # hyperkalemia likely due to MATIAS Corrected # anion gap and non-anion gap metabolic acidosis with compensated respiratory alkalosis likely due to uremic MATIAS -repeat BMP in the morning # hypomagnesemia -slow correction in the setting of MATIAS # hypocalcemia the setting of CKD, dialysis -monitor BMP - discontinued sevelamer, started calcium acetate 2100 mg t.i.d. with meals by volunteer services manager # hyperphosphatemia likely in the setting of CKD -monitor Infectious disease #?Sepsis likely due to questionable pneumonia -judicious use of IV fluids considering GFR less than three -panculture -IV meropenem #UTI -urine culture -on antibiotcs GI #?GI bleed -IV Protonix 40mg BID, switched to pantoprazole oral -FOBT Endocrine Rheumatology #Gout -not in active flare Lines peripheral IV Line Drips Code status discussed with the patient for >21 min, FULL CODE Nutrition Renal diet DVT prophylaxis SCD's currently on hold because of severe anemia nutrition services manager consulted for arranging outpatient dialysis chair time Case discussion with DR Bishop Plan discussed with: Patient, Other My Orders My Orders Orders - JOSÉ BELTRAN Procedure Category Date Status Time * Clinical Nutrition Manager CONS 03/30/24 Transmitted Consult CC Plasma Assessment Blood Product Administration S: 0630 Date of Service: Mar 30, 2024 Billing Provider: EMILIE BISHOP MD Common Visit Codes: [id number] INP/OBS CARE(HIGH) JOSÉ BELTRAN Mar 30, 2024 13:04 EMILIE BISHOP MD Mar 30, 2024 13:09
--- NOTE | 2024-03-30 13:56 | DVHPN2 ---
Progress Note Date Seen: Mar 30, 2024 Medical Necessity Reason Pt with a Central, PICC or Fol: Yes The following are medically ne: Castellon Catheter Subjective Patient reports: Other (headache) Objective vital signs Vital Sign Date Time Temp Pulse Resp B/P (MAP) Pulse Ox O2 Delivery O2 Flow Rate FiO2 03/30/24 12:48 98.7 80 18 136/83 (100) 97 98.7 03/30/24 08:00 Room Air* 0 21 Total Intake and Output 03/29/24 03/29/24 03/30/24 15:00 23:00 07:00 Intake Total 300 ml 30 ml 850 ml Output Total 1500 ml 500 ml Balance 300 ml -1470 ml 350 ml medications Current Medications Medications Dose Ordered Sig/Gianna Route Start Time Stop Time Status Last Admin Dose Admin Sodium Chloride 10 ml Q8HR IV 03/24/24 22:00 03/30/24 06:38 10 ML Acetaminophen 650 mg Q6HP PRN PO 03/24/24 21:00 03/30/24 08:13 650 MG Pantoprazole Sodium 40 mg DAILY@0600 PO 03/28/24 06:00 03/30/24 06:38 40 MG Melatonin 5 mg HS PO 03/28/24 00:04 03/29/24 21:32 5 MG Acetaminophen/ Hydrocodone Bitart 1 tab Q6HPRN PRN PO 03/27/24 22:45 03/29/24 16:21 1 TAB Mycophenolate Mofetil 500 mg BID PO 03/28/24 22:00 03/30/24 10:55 500 MG Methylprednisolone Sodium Succinate 500 mg/Sodium Chloride 100 ml @ 200 mls/hr DAILY IV 03/28/24 11:15 04/01/24 11:00 03/30/24 12:23 200 MLS/HR Ceftriaxone Sodium 50 ml @ 100 mls/hr DAILY@09 IV 03/29/24 09:00 03/30/24 11:54 100 MLS/HR Calcium Acetate 2,001 mg TIDWMEALS PO 03/28/24 18:00 03/30/24 12:09 2,001 MG Ondansetron HCl 4 mg Q6HPRN PRN IV 03/28/24 16:15 03/30/24 08:13 4 MG Doxycycline Hyclate 250 ml @ 125 mls/hr Q12H IV 03/28/24 17:00 03/31/24 17:00 03/30/24 04:18 125 MLS/HR Lidocaine HCl 2 ml Q8HPRN PRN TOP 03/28/24 17:45 Examination: GENERAL:Normal, NECK:Normal, CVS:Normal, ABDOMEN:Normal laboratory and microbiology Laboratory Tests 03/30/24 05:30 Test 03/30/24 05:30 Range/Units Serum Glucose 112 H 74-106 mg/dL Microbiology Date/Time Source Procedure Growth Status 03/25/24 04:00 Blood Blood Culture - Final NO GROWTH AFTER 5 DAYS OF INCUBATION. Complete 03/24/24 20:56 Voided Urine Urine Culture - Final Enterococcus faecalis Complete Problem List/Assessment/Plan Problem List/Assessment/Plan Acute kidney injury likely due to acute GN baseline renal function is unknown Acute pancreatitis Positive MADI, low C3 and low for C4 consistent with lupus nephritis History of gouty nephropathy Severe anemia status post packed red blood cell transfusion Hyperkalemia Metabolic acidosis NSTEMI Hyperphosphatemia Hypocalcemia due to hyperphosphatemia Nephrotic range proteinuria Status post tunneled hemodialysis catheter Hemodialysis today Epogen 76027 IV post hemodialysis Calcium acetate 2001 mg p.o. t.i.d. with meals s/p loading steroids mycophenolate 500 mg p.o. b.i.d. Rheumatology consult Renal diet Radiology for kidney biopsy f/u with Dr. Lieberman obtain HD chairtime for acute outpatient HD Plan discussed with: Patient My Orders My Orders Orders - KOMAL VINES MD Procedure Category Date Status Time Dialysis Nursing DEAN 03/30/24 In Process Message 07:00 Document Fluid Input DEAN 03/30/24 In Process And Outpu 07:00 Epoetin Shabbir-Epbx PHA 03/30/24 In Process (Retacrit) 21:00 Hemodialysis Orders ORDERS 03/30/24 Transmitted 09:45 CC Plasma Assessment Blood Product Administration S: 0630 KOMAL VINES MD Mar 30, 2024 13:56
[2024-03-30 19:06] LABS: Cytoplasmic (C-ANCA) <1:20 titer (Neg:<1:20)
[2024-03-30] MEDS: EPOETIN ALFA-EPBX 10,000 UNIT/1ML VIAL SC ONE (21:45)
[2024-03-31] VITALS (9 sets, daily range): BP systolic 137–171; BP diastolic 63–95; PULSE 79–92; RESP 17–21; TEMP 98–98.7; O2SAT 90–97
[2024-03-31 07:13] LABS: Basophils # (auto) 0 10 ^3/uL (0-0.2); Eosinophils # (auto) 0 10 ^3/uL (0-0.8); Hematocrit 23.9 % (36.0-46.0); Hemoglobin 8.2 g/dL (12.2-16.2); Lymphocytes # (auto) 0.2 10 ^3/uL (0.4-5.4); Lymphocytes % (auto) 4.6 % (10.0-50.0); Mean Corpuscular Hemoglobin 29.5 pg (28.0-32.0); Mean Corpuscular Hgb Conc. 34.4 g/dL (32.0-36.0); Mean Corpuscular Volume 85.9 fL (80.0-100.0); Monocytes # (auto) 0.2 10 ^3/uL (0-1.3); Monocytes % (auto) 4.7 % (0.0-12.0); Neutrophils # (auto) 4.2 10 ^3/uL (1.6-8.6); Neutrophils % (auto) 90.7 % (37.0-80.0); Nucleated Red Blood Cells % 0.1 %; Platelet Count (auto) 156 10^3/uL (140-450); Red Blood Cells 2.78 10^6/uL (4.0-5.20); Red Cell Distribution Width 14.4 % (11.8-14.3); White Blood Cell 4.6 10^3/uL (4.4-10.8)
[2024-03-31 07:23] LABS: Anion Gap 9 (5-15); Carbon Dioxide 27 mmol/L (20-31); Potassium 3.6 mmol/L (3.5-5.1)
[2024-03-31 07:24] LABS: Chloride 97 mmol/L (98-107); Sodium 133 mmol/L (136-145)
[2024-03-31 07:29] LABS: BUN/Creatinine Ratio 7.4 (10.0-20.0)
[2024-03-31 07:30] LABS: Phosphorus 4.3 mg/dL (2.4-5.1)
[2024-03-31 07:56] LABS: Glucose 159 mg/dL (74-106)
[2024-03-31 07:57] LABS: Blood Urea Nitrogen 36 mg/dL (9-23)
--- NOTE | 2024-03-31 11:23 | DVHPNRES ---
Progress Note Date Seen: Mar 31, 2024 Resident Creating Document: JOSÉ BLETRAN RESIDENT Medical Necessity Reason Pt with a Central, PICC or Fol: Yes The following are medically ne: Castellon Catheter Subjective Review of Systems pt seen and examined at bedside, currently is on room air. She is mentioning of mild nausea but no other complaints. card services specialist consulted for arranging outpatient dialysis chair time Objective vital signs Vital Sign Date Time Temp Pulse Resp B/P (MAP) Pulse Ox O2 Delivery O2 Flow Rate FiO2 03/31/24 09:17 98.6 92 20 171/63 (99) 90 98.6 03/30/24 20:00 Room Air* 0 21 Total Intake and Output 03/30/24 03/30/24 03/31/24 15:00 23:00 07:00 Intake Total 350 ml 250 ml Balance 350 ml 250 ml medications Current Medications Medications Dose Ordered Sig/Gianna Route Start Time Stop Time Status Last Admin Dose Admin Sodium Chloride 10 ml Q8HR IV 03/24/24 22:00 03/31/24 05:32 10 ML Acetaminophen 650 mg Q6HP PRN PO 03/24/24 21:00 03/30/24 08:13 650 MG Pantoprazole Sodium 40 mg DAILY@0600 PO 03/28/24 06:00 03/31/24 05:32 40 MG Melatonin 5 mg HS PO 03/28/24 00:04 03/30/24 21:44 5 MG Acetaminophen/ Hydrocodone Bitart 1 tab Q6HPRN PRN PO 03/27/24 22:45 03/29/24 16:21 1 TAB Mycophenolate Mofetil 500 mg BID PO 03/28/24 22:00 03/31/24 10:29 500 MG Methylprednisolone Sodium Succinate 500 mg/Sodium Chloride 100 ml @ 200 mls/hr DAILY IV 03/28/24 11:15 04/01/24 11:00 03/31/24 10:30 200 MLS/HR Ceftriaxone Sodium 50 ml @ 100 mls/hr DAILY@09 IV 03/29/24 09:00 03/31/24 08:45 100 MLS/HR Calcium Acetate 2,001 mg TIDWMEALS PO 03/28/24 18:00 03/31/24 08:02 2,001 MG Ondansetron HCl 4 mg Q6HPRN PRN IV 03/28/24 16:15 03/30/24 08:13 4 MG Doxycycline Hyclate 250 ml @ 125 mls/hr Q12H IV 03/28/24 17:00 03/31/24 17:00 03/31/24 05:28 125 MLS/HR Lidocaine HCl 2 ml Q8HPRN PRN TOP 03/28/24 17:45 Hydralazine HCl 5 mg Q6HP PRN IV 03/31/24 08:45 Examination Examination General Appearance: Alert, Oriented X3, Cooperative, No acute distress HEENT: EOMI Respiratory: Clear to auscultation, Normal air movement Cardiovascular: Regular rate, Normal S1, Normal S2, tunneled subclavian catheter present on the right side Abdominal: Normal bowel sounds Extremities: Bilateral lower leg pain, No cyanosis, No edema, Normal pulses, No tenderness/swelling Skin: No rashes, No breakdown Neuro: Normal speech and tone laboratory and microbiology Laboratory Tests 03/31/24 06:20 Test 03/31/24 06:20 Range/Units Serum Glucose 159 H 74-106 mg/dL Microbiology Date/Time Source Procedure Growth Status 03/25/24 04:00 Blood Blood Culture - Final NO GROWTH AFTER 5 DAYS OF INCUBATION. Complete 03/24/24 20:56 Voided Urine Urine Culture - Final Enterococcus faecalis Complete Labs and/or images reviewed: Labs reviewed by me, Image(s) reviewed by me Problem List/Assessment/Plan Problem List/Assessment/Plan Assessment/plan Neurology Cardiology # NSTEMI type 2 -likely due to MATIAS on CKD -EKG for monitoring Respiratory # Acute hypoxic respiratory failure likely in the setting of severe anemia, volume overload/pulmonary congestion/questionable pneumonia, improving Currently on room air -IV Lasix 100 mg b.i.d, discontinued #?Questionable pneumonia, comminuted required, Gram-positive/Gram-negative -IV cefriaxone plus IV doxycycline -sputum culture MRSA screen Hematology # Severe Anemia requiring blood transfusion, normocytic anemia, possibly due to anemia of chronic disease due to CKD, ?GI bleed -transfused with 4 units of PRBC -CBC in the a.m. Nephrology # MATIAS over CKD ?Glomerulonephritis likely lupus nephritis -nephrology consulted Planning dialysis -FeNA 2.7% -HIV, hep b, hep C, RPR Patient underwent tunneled dialysis catheter today Positive MADI, low C3 and low for C4 consistent with lupus nephritis Rheumatological consult as per recommendation from Nephrology Kidney biopsy for confirmation for diagnosis of lupus nephritis, Radiology consulted Patient is receiving dialysis yesterday Patient underwent kidney biopsy yesterday Patient was started on Solu-Medrol 500 mg daily mycophenolate mofetil 500 mg p.o. b.i.d. # hyperkalemia likely due to MATIAS Corrected # anion gap and non-anion gap metabolic acidosis with compensated respiratory alkalosis likely due to uremic MATIAS -repeat BMP in the morning # hypomagnesemia -slow correction in the setting of MATIAS # hypocalcemia the setting of CKD, dialysis -monitor BMP - discontinued sevelamer, started calcium acetate 2100 mg t.i.d. with meals by fashion consultant # hyperphosphatemia likely in the setting of CKD -monitor Infectious disease #?Sepsis likely due to questionable pneumonia -judicious use of IV fluids considering GFR less than three -panculture -IV meropenem #UTI -urine culture -on antibiotcs GI #?GI bleed -IV Protonix 40mg BID, switched to pantoprazole oral -FOBT Endocrine Rheumatology #Gout -not in active flare Lines peripheral IV Line Drips Code status discussed with the patient for >21 min, FULL CODE Nutrition Renal diet DVT prophylaxis SCD's currently on hold because of severe anemia card services specialist consulted for arranging outpatient dialysis chair time Case discussion with DR Bishop Plan discussed with: Patient, Other My Orders My Orders Orders - JOSÉ BELTRAN Procedure Category Date Status Time Hydralazine Injection PHA 03/31/24 In Process (Apresoline Inject 08:45 CC Plasma Assessment Blood Product Administration S: 0630 Date of Service: Mar 31, 2024 Billing Provider: EMILIE BISHOP MD Common Visit Codes: [id number] INP/OBS CARE(HIGH) JOSÉ BELTRAN Mar 31, 2024 11:23 EMILIE BISHOP MD Apr 01, 2024 08:44
--- NOTE | 2024-03-31 11:30 | DVHPN2 ---
Progress Note Date Seen: Mar 31, 2024 Medical Necessity Reason Pt with a Central, PICC or Fol: Yes The following are medically ne: Castellon Catheter Subjective Patient reports: No new complaints Other Systems: Patient seen and examined by myself today in follow-up Objective vital signs Vital Sign Date Time Temp Pulse Resp B/P (MAP) Pulse Ox O2 Delivery O2 Flow Rate FiO2 03/31/24 09:17 98.6 92 20 171/63 (99) 90 98.6 03/30/24 20:00 Room Air* 0 21 Total Intake and Output 03/30/24 03/30/24 03/31/24 15:00 23:00 07:00 Intake Total 350 ml 250 ml Balance 350 ml 250 ml medications Current Medications Medications Dose Ordered Sig/Gianna Route Start Time Stop Time Status Last Admin Dose Admin Sodium Chloride 10 ml Q8HR IV 03/24/24 22:00 03/31/24 05:32 10 ML Acetaminophen 650 mg Q6HP PRN PO 03/24/24 21:00 03/30/24 08:13 650 MG Pantoprazole Sodium 40 mg DAILY@0600 PO 03/28/24 06:00 03/31/24 05:32 40 MG Melatonin 5 mg HS PO 03/28/24 00:04 03/30/24 21:44 5 MG Acetaminophen/ Hydrocodone Bitart 1 tab Q6HPRN PRN PO 03/27/24 22:45 03/29/24 16:21 1 TAB Mycophenolate Mofetil 500 mg BID PO 03/28/24 22:00 03/31/24 10:29 500 MG Methylprednisolone Sodium Succinate 500 mg/Sodium Chloride 100 ml @ 200 mls/hr DAILY IV 03/28/24 11:15 04/01/24 11:00 03/31/24 10:30 200 MLS/HR Ceftriaxone Sodium 50 ml @ 100 mls/hr DAILY@09 IV 03/29/24 09:00 03/31/24 08:45 100 MLS/HR Calcium Acetate 2,001 mg TIDWMEALS PO 03/28/24 18:00 03/31/24 08:02 2,001 MG Ondansetron HCl 4 mg Q6HPRN PRN IV 03/28/24 16:15 03/30/24 08:13 4 MG Doxycycline Hyclate 250 ml @ 125 mls/hr Q12H IV 03/28/24 17:00 03/31/24 17:00 03/31/24 05:28 125 MLS/HR Lidocaine HCl 2 ml Q8HPRN PRN TOP 03/28/24 17:45 Hydralazine HCl 5 mg Q6HP PRN IV 03/31/24 08:45 laboratory and microbiology Laboratory Tests 03/31/24 06:20 Test 03/31/24 06:20 Range/Units Serum Glucose 159 H 74-106 mg/dL Microbiology Date/Time Source Procedure Growth Status 03/25/24 04:00 Blood Blood Culture - Final NO GROWTH AFTER 5 DAYS OF INCUBATION. Complete 03/24/24 20:56 Voided Urine Urine Culture - Final Enterococcus faecalis Complete Problem List/Assessment/Plan Problem List/Assessment/Plan Acute kidney injury superimposed Chronic Kidney Disease secondary hemodynamic mediated Acute pancreatitis Positive MADI, low C3 and low for C4 consistent with lupus nephritis status post kidney biopsy History of gouty nephropathy Severe anemia status post packed red blood cell transfusion Hyperkalemia Metabolic acidosis NSTEMI Hyperphosphatemia Hypocalcemia Nephrotic range proteinuria Status post tunneled hemodialysis catheter Recommendations Hemodialysis tomorrow Epogen 62713 IV post hemodialysis Calcium gluconate IV piggyback Calcium acetate 2001 mg p.o. t.i.d. with meals Rheumatology consult Renal diet Continue prednisone and mycophenolate We will continue to follow Plan discussed with: Patient, Spouse CC Plasma Assessment Blood Product Administration S: [id number] PREET DOLAN MD Mar 31, 2024 11:30
[2024-03-31] MEDS: CALCITRIOL 0.25 MCG CAP PO SCH (12:59)
[2024-03-31] MEDS: ERGOCALCIFEROL 50,000 UNIT(1.25MG) CAP PO SCH (12:59)
[2024-03-31] MEDS: CALCIUM GLUC 1,000mg/50ml-NS 50 ML IV SCH (13:20)
[2024-03-31] MEDS: POLYETHYLENE GLYCOL 17 GM PWDR PO PRN (18:01)
[2024-03-31] MEDS: hydrALAZINE HCL 20 MG/ML VL IV PRN (21:03)
[2024-03-31] MEDS: MELATONIN 5 MG TAB PO ONE (22:06)
[2024-04-01] VITALS (11 sets, daily range): BP systolic 135–192; BP diastolic 72–102; PULSE 76–86; RESP 12–18; TEMP 97.8–99.3; O2SAT 92–100
[2024-04-01 07:22] LABS: Basophils # (auto) 0 10 ^3/uL (0-0.2); Basophils % (auto) 0.1 % (0.0-2.0); Eosinophils # (auto) 0 10 ^3/uL (0-0.8); Hematocrit 25.3 % (36.0-46.0); Hemoglobin 8.6 g/dL (12.2-16.2); Lymphocytes # (auto) 0.5 10 ^3/uL (0.4-5.4); Lymphocytes % (auto) 6.1 % (10.0-50.0); Mean Corpuscular Hemoglobin 29.4 pg (28.0-32.0); Mean Corpuscular Hgb Conc. 34.2 g/dL (32.0-36.0); Monocytes # (auto) 0.7 10 ^3/uL (0-1.3); Monocytes % (auto) 7.9 % (0.0-12.0); Neutrophils # (auto) 7.1 10 ^3/uL (1.6-8.6); Neutrophils % (auto) 85.9 % (37.0-80.0); Nucleated Red Blood Cells % 0.1 %; Platelet Count (auto) 179 10^3/uL (140-450); Red Blood Cells 2.94 10^6/uL (4.0-5.20); Red Cell Distribution Width 14.4 % (11.8-14.3); White Blood Cell 8.2 10^3/uL (4.4-10.8)
[2024-04-01 07:49] LABS: Potassium 3.7 mmol/L (3.5-5.1)
[2024-04-01 07:50] LABS: Anion Gap 11 (5-15); Carbon Dioxide 22 mmol/L (20-31)
[2024-04-01 07:55] LABS: BUN/Creatinine Ratio 8.3 (10.0-20.0); Magnesium 1.7 mg/dL (1.6-2.6)
[2024-04-01 07:57] LABS: Blood Urea Nitrogen 48 mg/dL (9-23); Calcium 7.9 mg/dL (8.7-10.4); Chloride 93 mmol/L (98-107); Glucose 117 mg/dL (74-106); Sodium 126 mmol/L (136-145)
--- NOTE | 2024-04-01 13:44 | DVHPN2 ---
Progress Note Date Seen: Apr 01, 2024 Medical Necessity Reason Pt with a Central, PICC or Fol: No The following are medically ne: Castellon Catheter Subjective Patient reports: No new complaints Other Systems: Patient seen and examined by myself urine hemodialysis today, blood pressure is stable Objective vital signs Vital Sign Date Time Temp Pulse Resp B/P (MAP) Pulse Ox O2 Delivery O2 Flow Rate FiO2 04/01/24 12:40 98.1 83 16 148/85 (106) 98 98.1 04/01/24 08:00 Room Air* 0 21 Total Intake and Output 03/31/24 03/31/24 04/01/24 15:00 23:00 07:00 Intake Total 500 ml 500 ml 600 ml Output Total 400 ml Balance 500 ml 100 ml 600 ml medications Current Medications Medications Dose Ordered Sig/Gianna Route Start Time Stop Time Status Last Admin Dose Admin Sodium Chloride 10 ml Q8HR IV 03/24/24 22:00 04/01/24 05:16 10 ML Acetaminophen 650 mg Q6HP PRN PO 03/24/24 21:00 03/31/24 22:08 650 MG Pantoprazole Sodium 40 mg DAILY@0600 PO 03/28/24 06:00 04/01/24 05:20 40 MG Melatonin 5 mg HS PO 03/28/24 00:04 03/31/24 21:03 5 MG Acetaminophen/ Hydrocodone Bitart 1 tab Q6HPRN PRN PO 03/27/24 22:45 03/29/24 16:21 1 TAB Mycophenolate Mofetil 500 mg BID PO 03/28/24 22:00 04/01/24 11:06 500 MG Ceftriaxone Sodium 50 ml @ 100 mls/hr DAILY@09 IV 03/29/24 09:00 04/01/24 08:58 100 MLS/HR Calcium Acetate 2,001 mg TIDWMEALS PO 03/28/24 18:00 04/01/24 11:38 2,001 MG Ondansetron HCl 4 mg Q6HPRN PRN IV 03/28/24 16:15 03/30/24 08:13 4 MG Lidocaine HCl 2 ml Q8HPRN PRN TOP 03/28/24 17:45 Hydralazine HCl 5 mg Q6HP PRN IV 03/31/24 08:45 04/01/24 05:20 5 MG Calcitriol 0.5 mcg DAILY PO 03/31/24 11:45 04/01/24 11:06 0.5 MCG Ergocalciferol 50,000 unit Q7D PO 03/31/24 11:45 03/31/24 12:59 50,000 UNIT Polyethylene Glycol 17 gm DAILYPRN PRN PO 03/31/24 16:45 03/31/24 18:01 17 GM Examination: LUNGS:Normal, CVS:Normal, MSK:Normal laboratory and microbiology Laboratory Tests 04/01/24 06:59 Test 04/01/24 06:59 Range/Units Serum Glucose 117 H 74-106 mg/dL Microbiology Date/Time Source Procedure Growth Status 03/25/24 04:00 Blood Blood Culture - Final NO GROWTH AFTER 5 DAYS OF INCUBATION. Complete 03/24/24 20:56 Voided Urine Urine Culture - Final Enterococcus faecalis Complete Problem List/Assessment/Plan Problem List/Assessment/Plan Acute kidney injury superimposed Chronic Kidney Disease secondary hemodynamic mediated, patient is a visiting from [facility], requiring intermittent hemodialysis Acute pancreatitis Positive MADI, low C3 and low for C4 consistent with lupus nephritis status post kidney biopsy History of gouty nephropathy Severe anemia status post packed red blood cell transfusion Hyperkalemia Metabolic acidosis NSTEMI Hyperphosphatemia Hypocalcemia Hyponatremia due to excess H2O Nephrotic range proteinuria Status post tunneled hemodialysis catheter Recommendations Continue with UF 2 L as tolerated Epogen 95226 IV post hemodialysis Calcium gluconate IV piggyback Calcium acetate 2001 mg p.o. t.i.d. with meals Fluid restrictions Rheumatology consult Renal diet Continue prednisone and mycophenolate We will continue to follow Plan discussed with: Patient CC Plasma Assessment Blood Product Administration S: [id number] PREET DOLAN MD Apr 01, 2024 13:44
--- NOTE | 2024-04-01 15:20 | DVHPNRES ---
Progress Note Date Seen: Apr 01, 2024 Resident Creating Document: JOSÉ BELTRAN RESIDENT Medical Necessity Reason Pt with a Central, PICC or Fol: No The following are medically ne: Castellon Catheter Subjective Review of Systems pt seen and examined at bedside, currently is on room air. She is mentioning of no complaints. media services coordinator consulted for arranging outpatient dialysis chair time. Objective vital signs Vital Sign Date Time Temp Pulse Resp B/P (MAP) Pulse Ox O2 Delivery O2 Flow Rate FiO2 04/01/24 14:56 171/85 04/01/24 12:40 98.1 83 16 98 98.1 04/01/24 08:00 Room Air* 0 21 Total Intake and Output 03/31/24 03/31/24 04/01/24 15:00 23:00 07:00 Intake Total 500 ml 500 ml 600 ml Output Total 400 ml Balance 500 ml 100 ml 600 ml medications Current Medications Medications Dose Ordered Sig/Gianna Route Start Time Stop Time Status Last Admin Dose Admin Sodium Chloride 10 ml Q8HR IV 03/24/24 22:00 04/01/24 05:16 10 ML Acetaminophen 650 mg Q6HP PRN PO 03/24/24 21:00 03/31/24 22:08 650 MG Pantoprazole Sodium 40 mg DAILY@0600 PO 03/28/24 06:00 04/01/24 05:20 40 MG Melatonin 5 mg HS PO 03/28/24 00:04 03/31/24 21:03 5 MG Acetaminophen/ Hydrocodone Bitart 1 tab Q6HPRN PRN PO 03/27/24 22:45 03/29/24 16:21 1 TAB Mycophenolate Mofetil 500 mg BID PO 03/28/24 22:00 04/01/24 11:06 500 MG Ceftriaxone Sodium 50 ml @ 100 mls/hr DAILY@09 IV 03/29/24 09:00 04/01/24 08:58 100 MLS/HR Calcium Acetate 2,001 mg TIDWMEALS PO 03/28/24 18:00 04/01/24 11:38 2,001 MG Ondansetron HCl 4 mg Q6HPRN PRN IV 03/28/24 16:15 03/30/24 08:13 4 MG Lidocaine HCl 2 ml Q8HPRN PRN TOP 03/28/24 17:45 Hydralazine HCl 5 mg Q6HP PRN IV 03/31/24 08:45 04/01/24 14:56 5 MG Calcitriol 0.5 mcg DAILY PO 03/31/24 11:45 04/01/24 11:06 0.5 MCG Ergocalciferol 50,000 unit Q7D PO 03/31/24 11:45 03/31/24 12:59 50,000 UNIT Polyethylene Glycol 17 gm DAILYPRN PRN PO 03/31/24 16:45 03/31/24 18:01 17 GM Examination Examination General Appearance: Alert, Oriented X3, Cooperative, No acute distress HEENT: EOMI Respiratory: Clear to auscultation, Normal air movement Cardiovascular: Regular rate, Normal S1, Normal S2, tunneled subclavian catheter present on the right side Abdominal: Normal bowel sounds Extremities: Bilateral lower leg pain, No cyanosis, No edema, Normal pulses, No tenderness/swelling Skin: No rashes, No breakdown Neuro: Normal speech and tone laboratory and microbiology Laboratory Tests 04/01/24 06:59 Test 04/01/24 06:59 Range/Units Serum Glucose 117 H 74-106 mg/dL Microbiology Date/Time Source Procedure Growth Status 03/25/24 04:00 Blood Blood Culture - Final NO GROWTH AFTER 5 DAYS OF INCUBATION. Complete 03/24/24 20:56 Voided Urine Urine Culture - Final Enterococcus faecalis Complete Labs and/or images reviewed: Labs reviewed by me, Image(s) reviewed by me Problem List/Assessment/Plan Problem List/Assessment/Plan Assessment/plan Neurology Cardiology # NSTEMI type 2 -likely due to MATIAS on CKD -EKG for monitoring Respiratory # Acute hypoxic respiratory failure likely in the setting of severe anemia, volume overload/pulmonary congestion/questionable pneumonia, improving Currently on room air -IV Lasix 100 mg b.i.d, discontinued #?Questionable pneumonia, comminuted required, Gram-positive/Gram-negative -IV cefriaxone plus IV doxycycline -sputum culture MRSA screen Hematology # Severe Anemia requiring blood transfusion, normocytic anemia, possibly due to anemia of chronic disease due to CKD, ?GI bleed -transfused with 4 units of PRBC -CBC in the a.m. Nephrology # MATIAS over CKD ?Glomerulonephritis likely lupus nephritis -nephrology consulted Planning dialysis -FeNA 2.7% -HIV, hep b, hep C, RPR Patient underwent tunneled dialysis catheter today Positive MADI, low C3 and low for C4 consistent with lupus nephritis Rheumatological consult as per recommendation from Nephrology Kidney biopsy for confirmation for diagnosis of lupus nephritis, Radiology consulted Patient is receiving dialysis yesterday Patient underwent kidney biopsy yesterday Patient was started on Solu-Medrol 500 mg daily mycophenolate mofetil 500 mg p.o. b.i.d. # hyperkalemia likely due to MATIAS Corrected # anion gap and non-anion gap metabolic acidosis with compensated respiratory alkalosis likely due to uremic MATIAS -repeat BMP in the morning # hypomagnesemia -slow correction in the setting of MATIAS # hypocalcemia the setting of CKD, dialysis -monitor BMP - discontinued sevelamer, started calcium acetate 2100 mg t.i.d. with meals by consumer insights specialist # hyperphosphatemia likely in the setting of CKD -monitor Infectious disease #?Sepsis likely due to questionable pneumonia -judicious use of IV fluids considering GFR less than three -panculture -IV meropenem #UTI -urine culture -on antibiotcs GI #?GI bleed -IV Protonix 40mg BID, switched to pantoprazole oral -FOBT Endocrine Rheumatology #Gout -not in active flare Lines peripheral IV Line Drips Code status discussed with the patient for >21 min, FULL CODE Nutrition Renal diet DVT prophylaxis SCD's currently on hold because of severe anemia media services coordinator consulted for arranging outpatient dialysis chair time Case discussion with DR Bishop Plan discussed with: Patient, Other My Orders My Orders Orders - JOSÉ BELTRAN Procedure Category Date Status Time Polyethylene Glycol PHA 03/31/24 In Process 17g Powder (Miralax 16:45 Initiate Vte DEAN 04/01/24 In Process Prophylaxis 12:24 CC Plasma Assessment Blood Product Administration S: 0630 Date of Service: Apr 01, 2024 Billing Provider: EMILIE BISHOP MD Common Visit Codes: [id number] INP/OBS CARE(HIGH) JOSÉ BELTRAN Apr 01, 2024 15:20 EMILIE BISHOP MD Apr 02, 2024 08:51
[2024-04-01] MEDS: LORazepam 0.5 MG TAB PO ONE (15:44)
--- NOTE | 2024-04-01 16:13 | DVH ---
CHEST RADIOGRAPH Indication: ROUTINE TB SCREEN Technique: Single frontal view of the chest was obtained Comparison: None FINDINGS: Lines and Tubes: There is a right-sided central venous catheter with the tip in the right atrium. Lungs: No focal consolidation. Pleura: No effusion.No pneumothorax. Cardiomediastinal contours: Mild cardiomegaly. Pulmonary vasculature: Within normal limits. Bones: No acute osseous abnormality. IMPRESSION: 1. No acute cardiopulmonary disease. 2. Mild cardiomegaly. HS:Y
[2024-04-01] MEDS: EPOETIN ALFA-EPBX 10,000 UNIT/1ML VIAL SC ONE (21:29)
[2024-04-02] VITALS (8 sets, daily range): BP systolic 133–144; BP diastolic 76–94; PULSE 83–91; RESP 17–18; TEMP 98.1–98.5; O2SAT 96–98
[2024-04-02 09:39] LABS: Anion Gap 9 (5-15); Carbon Dioxide 26 mmol/L (20-31); Potassium 3.9 mmol/L (3.5-5.1)
[2024-04-02 09:40] LABS: Chloride 95 mmol/L (98-107); Sodium 130 mmol/L (136-145)
[2024-04-02 09:45] LABS: Calcium 8.3 mg/dL (8.7-10.4)
[2024-04-02 09:46] LABS: BUN/Creatinine Ratio 8.7 (10.0-20.0); Magnesium 1.9 mg/dL (1.6-2.6)
[2024-04-02 09:51] LABS: Blood Urea Nitrogen 46 mg/dL (9-23); Glucose 121 mg/dL (74-106)
--- NOTE | 2024-04-02 14:42 | DVHPN2 ---
Progress Note Date Seen: Apr 02, 2024 Medical Necessity Reason Pt with a Central, PICC or Fol: No The following are medically ne: Castellon Catheter Subjective Review of Systems No new complaints. Reports tolerated dialysis well on 04/01 Patient reports: No new complaints Objective vital signs Vital Sign Date Time Temp Pulse Resp B/P (MAP) Pulse Ox O2 Delivery O2 Flow Rate FiO2 04/02/24 13:21 98.3 85 18 133/76 (95) 97 98.3 04/02/24 08:00 Room Air* 0 21 Total Intake and Output 04/01/24 04/01/24 04/02/24 15:00 23:00 07:00 Intake Total 50 ml 1474 ml 775 ml Balance 50 ml 1474 ml 775 ml medications Current Medications Medications Dose Ordered Sig/Gianna Route Start Time Stop Time Status Last Admin Dose Admin Sodium Chloride 10 ml Q8HR IV 03/24/24 22:00 04/02/24 14:07 10 ML Acetaminophen 650 mg Q6HP PRN PO 03/24/24 21:00 04/01/24 17:46 650 MG Pantoprazole Sodium 40 mg DAILY@0600 PO 03/28/24 06:00 04/02/24 05:37 40 MG Melatonin 5 mg HS PO 03/28/24 00:04 04/01/24 21:28 5 MG Acetaminophen/ Hydrocodone Bitart 1 tab Q6HPRN PRN PO 03/27/24 22:45 04/02/24 14:03 1 TAB Mycophenolate Mofetil 500 mg BID PO 03/28/24 22:00 04/02/24 10:19 500 MG Ceftriaxone Sodium 50 ml @ 100 mls/hr DAILY@09 IV 03/29/24 09:00 04/02/24 08:20 100 MLS/HR Calcium Acetate 2,001 mg TIDWMEALS PO 03/28/24 18:00 04/02/24 11:25 2,001 MG Ondansetron HCl 4 mg Q6HPRN PRN IV 03/28/24 16:15 03/30/24 08:13 4 MG Lidocaine HCl 2 ml Q8HPRN PRN TOP 03/28/24 17:45 Hydralazine HCl 5 mg Q6HP PRN IV 03/31/24 08:45 04/01/24 14:56 5 MG Calcitriol 0.5 mcg DAILY PO 03/31/24 11:45 04/02/24 08:21 0.5 MCG Ergocalciferol 50,000 unit Q7D PO 03/31/24 11:45 03/31/24 12:59 50,000 UNIT Polyethylene Glycol 17 gm DAILYPRN PRN PO 03/31/24 16:45 03/31/24 18:01 17 GM Lorazepam 0.5 mg Q6HP PRN IV 04/01/24 17:30 Examination Gen: Appears stated age, in no acute distress Pulm: Bilateral air entry, no rales CVS: RRR, normal S1 and S2 Ext: No edema noted Neuro:AOx4 laboratory and microbiology Laboratory Tests 04/02/24 08:41 04/01/24 06:59 Test 04/02/24 08:41 Range/Units Serum Glucose 121 H 74-106 mg/dL Microbiology Date/Time Source Procedure Growth Status 03/25/24 04:00 Blood Blood Culture - Final NO GROWTH AFTER 5 DAYS OF INCUBATION. Complete 03/24/24 20:56 Voided Urine Urine Culture - Final Enterococcus faecalis Complete Labs and/or images reviewed: Labs reviewed by me Problem List/Assessment/Plan Problem List/Assessment/Plan IMP Acute kidney injury superimposed Chronic Kidney Disease secondary hemodynamic mediated, patient is a visiting from [facility], requiring intermittent hemodialysis-ongoing last HD 04/01 Acute pancreatitis Positive MADI, low C3 and low for C4 consistent with lupus nephritis status post kidney biopsy History of gouty nephropathy Severe anemia status post packed red blood cell transfusion Hyperkalemia Metabolic acidosis NSTEMI Hyperphosphatemia Hypocalcemia Hyponatremia due to excess H2O Nephrotic range proteinuria Status post tunneled hemodialysis catheter REC Next hemodialysis 04/03 Fluid restriction, document I&Os Rheumatology consult Renal diet We will continue to follow Plan discussed with: Patient CC Plasma Assessment Blood Product Administration S: 0630 MADAN DUVALL Apr 02, 2024 14:42
--- NOTE | 2024-04-02 19:12 | DVHPNRES ---
Progress Note Date Seen: Apr 02, 2024 Resident Creating Document: JOSÉ BELTRAN RESIDENT Medical Necessity Reason Pt with a Central, PICC or Fol: No The following are medically ne: Castellon Catheter Subjective Review of Systems pt seen and examined at bedside, currently is on room air. She is mentioning of no complaints. information services tech consulted for arranging outpatient dialysis chair time. Objective vital signs Vital Sign Date Time Temp Pulse Resp B/P (MAP) Pulse Ox O2 Delivery O2 Flow Rate FiO2 04/02/24 17:00 98.3 89 18 142/86 (104) 97 98.3 04/02/24 08:00 Room Air* 0 21 Total Intake and Output 04/01/24 04/01/24 04/02/24 15:00 23:00 07:00 Intake Total 50 ml 1474 ml 775 ml Balance 50 ml 1474 ml 775 ml medications Current Medications Medications Dose Ordered Sig/Gianna Route Start Time Stop Time Status Last Admin Dose Admin Sodium Chloride 10 ml Q8HR IV 03/24/24 22:00 04/02/24 14:07 10 ML Acetaminophen 650 mg Q6HP PRN PO 03/24/24 21:00 04/01/24 17:46 650 MG Pantoprazole Sodium 40 mg DAILY@0600 PO 03/28/24 06:00 04/02/24 05:37 40 MG Melatonin 5 mg HS PO 03/28/24 00:04 04/01/24 21:28 5 MG Acetaminophen/ Hydrocodone Bitart 1 tab Q6HPRN PRN PO 03/27/24 22:45 04/02/24 14:03 1 TAB Mycophenolate Mofetil 500 mg BID PO 03/28/24 22:00 04/02/24 10:19 500 MG Ceftriaxone Sodium 50 ml @ 100 mls/hr DAILY@09 IV 03/29/24 09:00 04/02/24 08:20 100 MLS/HR Calcium Acetate 2,001 mg TIDWMEALS PO 03/28/24 18:00 04/02/24 17:21 2,001 MG Ondansetron HCl 4 mg Q6HPRN PRN IV 03/28/24 16:15 03/30/24 08:13 4 MG Lidocaine HCl 2 ml Q8HPRN PRN TOP 03/28/24 17:45 Hydralazine HCl 5 mg Q6HP PRN IV 03/31/24 08:45 04/01/24 14:56 5 MG Calcitriol 0.5 mcg DAILY PO 03/31/24 11:45 04/02/24 08:21 0.5 MCG Ergocalciferol 50,000 unit Q7D PO 03/31/24 11:45 03/31/24 12:59 50,000 UNIT Polyethylene Glycol 17 gm DAILYPRN PRN PO 03/31/24 16:45 03/31/24 18:01 17 GM Lorazepam 0.5 mg Q6HP PRN IV 04/01/24 17:30 Examination Examination General Appearance: Alert, Oriented X3, Cooperative, No acute distress HEENT: EOMI Respiratory: Clear to auscultation, Normal air movement Cardiovascular: Regular rate, Normal S1, Normal S2, tunneled subclavian catheter present on the right side Abdominal: Normal bowel sounds Extremities: Bilateral lower leg pain, No cyanosis, No edema, Normal pulses, No tenderness/swelling Skin: No rashes, No breakdown Neuro: Normal speech and tone laboratory and microbiology Laboratory Tests 04/02/24 08:41 04/01/24 06:59 Test 04/02/24 08:41 Range/Units Serum Glucose 121 H 74-106 mg/dL Microbiology Date/Time Source Procedure Growth Status 03/25/24 04:00 Blood Blood Culture - Final NO GROWTH AFTER 5 DAYS OF INCUBATION. Complete 03/24/24 20:56 Voided Urine Urine Culture - Final Enterococcus faecalis Complete Labs and/or images reviewed: Labs reviewed by me, Image(s) reviewed by me Problem List/Assessment/Plan Problem List/Assessment/Plan Assessment/plan Neurology Cardiology # NSTEMI type 2 -likely due to MATIAS on CKD -EKG for monitoring Respiratory # Acute hypoxic respiratory failure likely in the setting of severe anemia, volume overload/pulmonary congestion/questionable pneumonia, improving Currently on room air -IV Lasix 100 mg b.i.d, discontinued #?Questionable pneumonia, comminuted required, Gram-positive/Gram-negative -IV cefriaxone plus IV doxycycline -sputum culture MRSA screen Hematology # Severe Anemia requiring blood transfusion, normocytic anemia, possibly due to anemia of chronic disease due to CKD, ?GI bleed -transfused with 4 units of PRBC -CBC in the a.m. Nephrology # MATIAS over CKD ?Glomerulonephritis likely lupus nephritis -nephrology consulted Planning dialysis -FeNA 2.7% -HIV, hep b, hep C, RPR Patient underwent tunneled dialysis catheter today Positive MADI, low C3 and low for C4 consistent with lupus nephritis Rheumatological consult as per recommendation from Nephrology Kidney biopsy for confirmation for diagnosis of lupus nephritis, Radiology consulted Patient is receiving dialysis yesterday Patient underwent kidney biopsy yesterday Patient was started on Solu-Medrol 500 mg daily mycophenolate mofetil 500 mg p.o. b.i.d. # hyperkalemia likely due to MATIAS Corrected # anion gap and non-anion gap metabolic acidosis with compensated respiratory alkalosis likely due to uremic MATIAS -repeat BMP in the morning # hypomagnesemia -slow correction in the setting of MATIAS # hypocalcemia the setting of CKD, dialysis -monitor BMP - discontinued sevelamer, started calcium acetate 2100 mg t.i.d. with meals by dye machine operator # hyperphosphatemia likely in the setting of CKD -monitor Infectious disease #?Sepsis likely due to questionable pneumonia -judicious use of IV fluids considering GFR less than three -panculture -IV meropenem #UTI -urine culture -on antibiotics GI #?GI bleed -IV Protonix 40mg BID, switched to pantoprazole oral -FOBT Endocrine Rheumatology #Gout -not in active flare Lines peripheral IV Line Drips Code status discussed with the patient for >21 min, FULL CODE Nutrition Renal diet DVT prophylaxis SCD's currently on hold because of severe anemia information services tech consulted for arranging outpatient dialysis chair time. Case discussion with DR Bishop Plan discussed with: Patient, Other CC Plasma Assessment Blood Product Administration S: 0630 Date of Service: Apr 02, 2024 Billing Provider: EMILIE BISHOP MD Common Visit Codes: [id number] INP/OBS CARE(HIGH) JOSÉ BELTRAN RESIDENT Apr 02, 2024 19:12 EMILIE BISHOP MD Apr 05, 2024 08:33
[2024-04-03] VITALS (7 sets, daily range): BP systolic 94–135; BP diastolic 59–89; PULSE 77–111; RESP 16–18; TEMP 98.1–98.6; O2SAT 96–99
[2024-04-03 06:40] LABS: Anion Gap 9 (5-15); Carbon Dioxide 26 mmol/L (20-31); Potassium 4.2 mmol/L (3.5-5.1)
[2024-04-03 06:46] LABS: BUN/Creatinine Ratio 9.9 (10.0-20.0); Glucose 103 mg/dL (74-106)
[2024-04-03 06:47] LABS: Magnesium 1.8 mg/dL (1.6-2.6)
[2024-04-03 08:25] LABS: Blood Urea Nitrogen 61 mg/dL (9-23); Calcium 8.3 mg/dL (8.7-10.4); Chloride 94 mmol/L (98-107); Sodium 129 mmol/L (136-145)
[2024-04-03] MEDS: SODIUM CHL 0.9% 1000 ML BAG XX ONE (10:45)
[2024-04-03] MEDS: LORazepam 2MG/ML-1ML VIAL IV PRN (12:06)
--- NOTE | 2024-04-03 12:47 | DVHPNRES ---
Progress Note Date Seen: Apr 03, 2024 Resident Creating Document: AAMIR VEE RESIDENT Medical Necessity Reason Pt with a Central, PICC or Fol: No The following are medically ne: Castellon Catheter Subjective Review of Systems Patient is a 53-year-old female with past medical history of gout, who came in as she said she was not feeling well for the last 2 days. Patient notes that she has been experiencing cough, chest pain localized to subcostal area and a loss of appetite, denies having similar symptoms before. Of note, patient lives in [facility] and is currently visiting the [facility]. In the ER patient was noted to have a hemoglobin of 4 and subsequently she was transfused with 3 PRBCs. BUN was noted to be 114 and a creatinine of 12.7 with GFR 3, Nephrology was taken on board. Past surgical history: Right eye surgery Home medications: Colchicine, allopurinol Past Hospitalization: Denies Social & Personal history: Patient lives alone, denies using tobacco, alcohol, drugs. Allergies: Denies Patient seen and examined at bedside. Patient is alert and oriented to time, place person and responding to all questions. Patient is complaining of left arm pain since IV removal, states she is unable to move left arm. Denies any other active ongoing complaints. Awaiting social sciences department chair to arrange chair time for outpatient dialysis, pending discharge. Objective vital signs Vital Sign Date Time Temp Pulse Resp B/P (MAP) Pulse Ox O2 Delivery O2 Flow Rate FiO2 04/03/24 08:55 98.1 102 17 119/89 (99) 98 98.1 04/02/24 20:00 Room Air* 0 21 Total Intake and Output 04/02/24 04/02/24 04/03/24 14:59 22:59 06:59 Intake Total 50 ml 625 ml 1600 ml Balance 50 ml 625 ml 1600 ml medications Current Medications Medications Dose Ordered Sig/Gianna Route Start Time Stop Time Status Last Admin Dose Admin Sodium Chloride 10 ml Q8HR IV 03/24/24 22:00 04/03/24 05:51 10 ML Acetaminophen 650 mg Q6HP PRN PO 03/24/24 21:00 04/03/24 12:06 650 MG Pantoprazole Sodium 40 mg DAILY@0600 PO 03/28/24 06:00 04/03/24 05:53 40 MG Melatonin 5 mg HS PO 03/28/24 00:04 04/02/24 21:20 5 MG Acetaminophen/ Hydrocodone Bitart 1 tab Q6HPRN PRN PO 03/27/24 22:45 04/03/24 03:37 1 TAB Mycophenolate Mofetil 500 mg BID PO 03/28/24 22:00 04/03/24 09:41 500 MG Ceftriaxone Sodium 50 ml @ 100 mls/hr DAILY@09 IV 03/29/24 09:00 04/03/24 09:43 100 MLS/HR Calcium Acetate 2,001 mg TIDWMEALS PO 03/28/24 18:00 04/03/24 09:40 2,001 MG Ondansetron HCl 4 mg Q6HPRN PRN IV 03/28/24 16:15 03/30/24 08:13 4 MG Lidocaine HCl 2 ml Q8HPRN PRN TOP 03/28/24 17:45 Hydralazine HCl 5 mg Q6HP PRN IV 03/31/24 08:45 04/01/24 14:56 5 MG Calcitriol 0.5 mcg DAILY PO 03/31/24 11:45 04/03/24 09:40 0.5 MCG Ergocalciferol 50,000 unit Q7D PO 03/31/24 11:45 03/31/24 12:59 50,000 UNIT Polyethylene Glycol 17 gm DAILYPRN PRN PO 03/31/24 16:45 03/31/24 18:01 17 GM Lorazepam 0.5 mg Q6HP PRN IV 04/01/24 17:30 04/03/24 12:06 0.5 MG Examination General Appearance: Cooperative. Well developed. Well nourished. In moderate distress Head Exam: Normal inspection. An ulcer noted on the mucosal surface of the lower lip Neck Exam: Normal inspection. Non-tender. Normal alignment Pulmonary/Respiratory: Chest non-tender. Clear bilateral breath sounds, no crackles, no wheezing. Cardiovascular/Chest: Regular rate and rhythm. No murmurs. No JVD. Peripheral Pulses: 2+ Radial (R). 2+ Radial (L). 2+ Pedal (R). 2+ Pedal (L) Abdominal Exam: Normal bowel sounds. Soft. normal abdomen, no visible veins, Nontender. No hepatospenomegaly. No masses Upper extremities: Left forearm swollen, tenderness to palpation and unable to move without pain. Ankle Exam: Negative ankle edema Lower extremities: Negative lower extremity edema Neuro/Mental Status: A&O x4. Coherent. Thoughts/Psych: Normal thought pattern. Appropriate mood and affect. Good judgement and insight Skin Exam: Normal inspection. Normal color. Warm. Dry laboratory and microbiology Laboratory Tests 04/03/24 05:50 04/01/24 06:59 Test 04/03/24 05:50 Range/Units Serum Glucose 103 74-106 mg/dL Microbiology Date/Time Source Procedure Growth Status 03/25/24 04:00 Blood Blood Culture - Final NO GROWTH AFTER 5 DAYS OF INCUBATION. Complete 03/24/24 20:56 Voided Urine Urine Culture - Final Enterococcus faecalis Complete Labs and/or images reviewed: Labs reviewed by me, Image(s) reviewed by me Problem List/Assessment/Plan Problem List/Assessment/Plan Neurology Cardiology # NSTEMI type 2 -likely due to MATIAS on CKD -EKG for monitoring Respiratory # Acute hypoxic respiratory failure likely in the setting of severe anemia, volume overload/pulmonary congestion/questionable pneumonia, improving Currently on room air -IV Lasix 100 mg b.i.d, discontinued #?Questionable pneumonia, comminuted required, Gram-positive/Gram-negative -IV cefriaxone plus IV doxycycline -sputum culture MRSA screen Hematology # Severe Anemia requiring blood transfusion, normocytic anemia, possibly due to anemia of chronic disease due to CKD, ?GI bleed -transfused with 4 units of PRBC -CBC in the a.m. Nephrology # MATIAS over CKD ?Glomerulonephritis likely lupus nephritis -nephrology consulted Planning dialysis -FeNA 2.7% -HIV, hep b, hep C, RPR Patient underwent tunneled dialysis catheter today Positive MADI, low C3 and low for C4 consistent with lupus nephritis Rheumatological consult as per recommendation from Nephrology Kidney biopsy for confirmation for diagnosis of lupus nephritis, Radiology consulted Patient is receiving dialysis yesterday Patient underwent kidney biopsy yesterday Patient was started on Solu-Medrol 500 mg daily mycophenolate mofetil 500 mg p.o. b.i.d. # hyperkalemia likely due to MATIAS Corrected # anion gap and non-anion gap metabolic acidosis with compensated respiratory alkalosis likely due to uremic MATIAS -repeat BMP in the morning # hypomagnesemia -slow correction in the setting of MATIAS # hypocalcemia the setting of CKD, dialysis -monitor BMP - discontinued sevelamer, started calcium acetate 2100 mg t.i.d. with meals by director print # hyperphosphatemia likely in the setting of CKD -monitor Infectious disease #?Sepsis likely due to questionable pneumonia -judicious use of IV fluids considering GFR less than three -panculture -IV meropenem #UTI -urine culture -on antibiotics GI #?GI bleed -IV Protonix 40mg BID, switched to pantoprazole oral -FOBT Endocrine Rheumatology #Gout -not in active flare Lines peripheral IV Line Drips Code status discussed with the patient for >21 min, FULL CODE Nutrition Renal diet DVT prophylaxis SCD's currently on hold because of severe anemia environmental field services technician consulted for arranging outpatient dialysis chair time. Plan discussed with Dr. Mathews Plan discussed with: Patient, Other (RN) CC Plasma Assessment Blood Product Administration S: [id number] Date of Service: Apr 03, 2024 Billing Provider: JEROMY MATHEWS MD Common Visit Codes: [id number] INP/OBS CARE(HIGH) AAMIR VEE RESIDENT Apr 03, 2024 12:47 JEROMY MATHEWS MD Apr 04, 2024 10:39
[2024-04-03 13:16] LABS: Hematocrit 26.3 % (36.0-46.0); Hemoglobin 8.7 g/dL (12.2-16.2)
--- NOTE | 2024-04-03 16:59 | DVHPN2 ---
Progress Note Date Seen: Apr 03, 2024 Medical Necessity Reason Pt with a Central, PICC or Fol: No The following are medically ne: Castellon Catheter Subjective Review of Systems no new complaints, dialysis today Patient reports: No new complaints Objective vital signs Vital Sign Date Time Temp Pulse Resp B/P (MAP) Pulse Ox O2 Delivery O2 Flow Rate FiO2 04/03/24 13:00 98.2 105 18 135/75 (95) 98 98.2 04/03/24 08:00 Room Air* 0 21 Total Intake and Output 04/02/24 04/02/24 04/03/24 15:00 23:00 07:00 Intake Total 50 ml 625 ml 1600 ml Balance 50 ml 625 ml 1600 ml medications Current Medications Medications Dose Ordered Sig/Gianna Route Start Time Stop Time Status Last Admin Dose Admin Sodium Chloride 10 ml Q8HR IV 03/24/24 22:00 04/03/24 14:00 10 ML Acetaminophen 650 mg Q6HP PRN PO 03/24/24 21:00 04/03/24 12:06 650 MG Pantoprazole Sodium 40 mg DAILY@0600 PO 03/28/24 06:00 04/03/24 05:53 40 MG Melatonin 5 mg HS PO 03/28/24 00:04 04/02/24 21:20 5 MG Acetaminophen/ Hydrocodone Bitart 1 tab Q6HPRN PRN PO 03/27/24 22:45 04/03/24 03:37 1 TAB Mycophenolate Mofetil 500 mg BID PO 03/28/24 22:00 04/03/24 09:41 500 MG Ceftriaxone Sodium 50 ml @ 100 mls/hr DAILY@09 IV 03/29/24 09:00 04/03/24 09:43 100 MLS/HR Calcium Acetate 2,001 mg TIDWMEALS PO 03/28/24 18:00 04/03/24 09:40 2,001 MG Ondansetron HCl 4 mg Q6HPRN PRN IV 03/28/24 16:15 03/30/24 08:13 4 MG Lidocaine HCl 2 ml Q8HPRN PRN TOP 03/28/24 17:45 Hydralazine HCl 5 mg Q6HP PRN IV 03/31/24 08:45 04/01/24 14:56 5 MG Calcitriol 0.5 mcg DAILY PO 03/31/24 11:45 04/03/24 09:40 0.5 MCG Ergocalciferol 50,000 unit Q7D PO 03/31/24 11:45 03/31/24 12:59 50,000 UNIT Polyethylene Glycol 17 gm DAILYPRN PRN PO 03/31/24 16:45 04/03/24 16:20 17 GM Lorazepam 0.5 mg Q6HP PRN IV 04/01/24 17:30 04/03/24 12:06 0.5 MG Examination Gen: Appears stated age, in no acute distress Pulm: Bilateral air entry, no rales CVS: RRR, normal S1 and S2 Ext: No edema noted Neuro:AOx4 laboratory and microbiology Laboratory Tests 04/03/24 12:50 04/03/24 05:50 04/01/24 06:59 Test 04/03/24 05:50 Range/Units Serum Glucose 103 74-106 mg/dL Microbiology Date/Time Source Procedure Growth Status 03/25/24 04:00 Blood Blood Culture - Final NO GROWTH AFTER 5 DAYS OF INCUBATION. Complete 03/24/24 20:56 Voided Urine Urine Culture - Final Enterococcus faecalis Complete Problem List/Assessment/Plan Problem List/Assessment/Plan IMP Acute kidney injury superimposed Chronic Kidney Disease secondary hemodynamic mediated, patient is a visiting from [facility], requiring intermittent hemodialysis-ongoing last HD 04/03 Acute pancreatitis Positive MADI, low C3 and low for C4 consistent with lupus nephritis status post kidney biopsy History of gouty nephropathy Severe anemia status post packed red blood cell transfusion Hyperkalemia Metabolic acidosis NSTEMI Hyperphosphatemia Hypocalcemia Hyponatremia due to excess H2O Nephrotic range proteinuria Status post tunneled hemodialysis catheter REC Next hemodialysis Tues Fluid restriction, document I&Os Rheumatology consult Renal diet Pt will need chair time set up for outpt dialysis. Pt will not be returning to [facility] We will continue to follow Plan discussed with: Patient CC Plasma Assessment Blood Product Administration S: [id number] MADAN DUVALL Apr 03, 2024 16:59
--- NOTE | 2024-04-03 19:58 | DVH ---
Procedure: US LT Upper DVT Study Date and Requested Time: 04/03/2024 01:22 PM History: SWELLING Comparison: None Technique: Multiple high resolution grayscale images with and without compression obtained of the lef t upper extremity veins, including the internal jugular, subclavian, axillary, brachial, radial, and ulnar veins. Augmentation performed as indicated. Color and spectral doppler flow images obtained as indicated. Findings: No visible intraluminal venous thrombus. No evidence of incompressibility or abnormal color or spectr al Doppler flow visualized in the left upper extremity veins including the internal jugular, subclavi an, axillary, brachial, radial, and ulnar veins. There is thrombosis of the left cephalic vein over the mid forearm. The left basilic vein is patent. Impression: No sonographic evidence of left upper extremity deep venous thrombosis. Thrombosis of the left cephalic vein over the mid forearm which is a superficial vein.
[2024-04-03] MEDS: EPOETIN ALFA-EPBX 10,000 UNIT/1ML VIAL SC ONE (22:55)
[2024-04-04 00:53] VITALS: BP 111/68; PULSE 111; RESP 19; TEMP 98.6; O2SAT 98
[2024-04-04 05:00] VITALS: BP_SYST 137; BP_SYST 91; BP_DIAS 68; BP_DIAS 79; PULSE 115; PULSE 99; RESP 18; TEMP 97.8; TEMP 98.8; O2SAT 95; O2SAT 99
[2024-04-04 08:00] VITALS: PULSE 102; PULSE 83; RESP 18; O2SAT 96
[2024-04-04 08:30] VITALS: BP 147/87; PULSE 83; RESP 18; TEMP 98.3; O2SAT 96
[2024-04-04 11:10] LABS: Basophils # (auto) 0 10 ^3/uL (0-0.2); Basophils % (auto) 0.1 % (0.0-2.0); Eosinophils # (auto) 0.2 10 ^3/uL (0-0.8); Eosinophils % (auto) 1.7 % (0.0-7.0); Hematocrit 24.6 % (36.0-46.0); Hemoglobin 8.2 g/dL (12.2-16.2); Lymphocytes # (auto) 0.9 10 ^3/uL (0.4-5.4); Lymphocytes % (auto) 8.7 % (10.0-50.0); Mean Corpuscular Hemoglobin 29.8 pg (28.0-32.0); Mean Corpuscular Hgb Conc. 33.4 g/dL (32.0-36.0); Mean Corpuscular Volume 89.2 fL (80.0-100.0); Monocytes # (auto) 1.1 10 ^3/uL (0-1.3); Monocytes % (auto) 10.3 % (0.0-12.0); Neutrophils # (auto) 8.6 10 ^3/uL (1.6-8.6); Neutrophils % (auto) 79.2 % (37.0-80.0); Nucleated Red Blood Cells % 0.1 %; Platelet Count (auto) 213 10^3/uL (140-450); Red Blood Cells 2.76 10^6/uL (4.0-5.20); Red Cell Distribution Width 15.1 % (11.8-14.3); White Blood Cell 10.9 10^3/uL (4.4-10.8)
[2024-04-04 11:27] LABS: Potassium 4.6 mmol/L (3.5-5.1)
[2024-04-04 11:28] LABS: Anion Gap 8 (5-15); Calcium 8.4 mg/dL (8.7-10.4); Carbon Dioxide 25 mmol/L (20-31); Chloride 95 mmol/L (98-107); Sodium 128 mmol/L (136-145)
[2024-04-04 11:33] LABS: BUN/Creatinine Ratio 7.6 (10.0-20.0)
[2024-04-04 11:36] LABS: Glucose 127 mg/dL (74-106)
[2024-04-04 11:37] LABS: Blood Urea Nitrogen 36 mg/dL (9-23)
--- NOTE | 2024-04-04 11:48 | DVHPNRES ---
Progress Note Date Seen: Apr 04, 2024 Resident Creating Document: JOSÉ BELTRAN RESIDENT Medical Necessity Reason Pt with a Central, PICC or Fol: No The following are medically ne: Castellon Catheter Subjective Review of Systems pt seen and examined at bedside, mentions mild pain in multiple joints including digits bilateral feet, and wrist bilateral. also mentions of mild left mid arm pain Objective vital signs Vital Sign Date Time Temp Pulse Resp B/P (MAP) Pulse Ox O2 Delivery O2 Flow Rate FiO2 04/04/24 08:30 98.3 83 18 147/87 (107) 96 98.3 04/04/24 08:00 Room Air* 0 21 Total Intake and Output 04/03/24 04/03/24 04/04/24 15:00 23:00 07:00 Intake Total 50 ml 940 ml 350 ml Output Total 400 ml Balance 50 ml 940 ml -50 ml medications Current Medications Medications Dose Ordered Sig/Gianna Route Start Time Stop Time Status Last Admin Dose Admin Sodium Chloride 10 ml Q8HR IV 03/24/24 22:00 04/04/24 06:52 10 ML Acetaminophen 650 mg Q6HP PRN PO 03/24/24 21:00 04/03/24 18:27 650 MG Pantoprazole Sodium 40 mg DAILY@0600 PO 03/28/24 06:00 04/04/24 06:07 40 MG Melatonin 5 mg HS PO 03/28/24 00:04 04/03/24 20:53 5 MG Acetaminophen/ Hydrocodone Bitart 1 tab Q6HPRN PRN PO 03/27/24 22:45 04/04/24 06:07 1 TAB Mycophenolate Mofetil 500 mg BID PO 03/28/24 22:00 04/04/24 09:06 500 MG Ceftriaxone Sodium 50 ml @ 100 mls/hr DAILY@09 IV 03/29/24 09:00 04/04/24 09:05 100 MLS/HR Calcium Acetate 2,001 mg TIDWMEALS PO 03/28/24 18:00 04/04/24 09:05 2,001 MG Ondansetron HCl 4 mg Q6HPRN PRN IV 03/28/24 16:15 03/30/24 08:13 4 MG Lidocaine HCl 2 ml Q8HPRN PRN TOP 03/28/24 17:45 Hydralazine HCl 5 mg Q6HP PRN IV 03/31/24 08:45 04/01/24 14:56 5 MG Calcitriol 0.5 mcg DAILY PO 03/31/24 11:45 04/04/24 09:06 0.5 MCG Ergocalciferol 50,000 unit Q7D PO 03/31/24 11:45 03/31/24 12:59 50,000 UNIT Polyethylene Glycol 17 gm DAILYPRN PRN PO 03/31/24 16:45 04/03/24 16:20 17 GM Lorazepam 0.5 mg Q6HP PRN IV 04/01/24 17:30 04/03/24 12:06 0.5 MG Examination Examination General Appearance: Alert, Oriented X3, Cooperative, No acute distress HEENT: EOMI Respiratory: Clear to auscultation, Normal air movement Cardiovascular: Regular rate, Normal S1, Normal S2, tunneled subclavian catheter present on the right side Abdominal: Normal bowel sounds Extremities: Bilateral lower leg pain, No cyanosis, No edema, Normal pulses, No tenderness/swelling Skin: No rashes, No breakdown Neuro: Normal speech and tone laboratory and microbiology Laboratory Tests 04/04/24 09:55 Test 04/04/24 09:55 Range/Units Serum Glucose 127 H 74-106 mg/dL Microbiology Date/Time Source Procedure Growth Status 03/25/24 04:00 Blood Blood Culture - Final NO GROWTH AFTER 5 DAYS OF INCUBATION. Complete 03/24/24 20:56 Voided Urine Urine Culture - Final Enterococcus faecalis Complete Labs and/or images reviewed: Labs reviewed by me, Image(s) reviewed by me Problem List/Assessment/Plan Problem List/Assessment/Plan Assessment/plan Neurology Cardiology # NSTEMI type 2 -likely due to MATIAS on CKD -EKG for monitoring #Superficial venous thrombosis -warm compresses Respiratory # Acute hypoxic respiratory failure likely in the setting of severe anemia, volume overload/pulmonary congestion/questionable pneumonia, improving Currently on room air -IV Lasix 100 mg b.i.d, discontinued #?Questionable pneumonia, comminuted required, Gram-positive/Gram-negative -IV cefriaxone plus IV doxycycline, switched to augmentin -sputum culture MRSA screen Hematology # Severe Anemia requiring blood transfusion, normocytic anemia, possibly due to anemia of chronic disease due to CKD, ?GI bleed -transfused with 4 units of PRBC -CBC in the a.m. Nephrology # MATIAS over CKD ?Glomerulonephritis likely lupus nephritis -nephrology consulted Planning dialysis -FeNA 2.7% -HIV, hep b, hep C, RPR Patient underwent tunneled dialysis catheter today Positive MADI, low C3 and low for C4 consistent with lupus nephritis Rheumatological consult as per recommendation from Nephrology Kidney biopsy for confirmation for diagnosis of lupus nephritis, Radiology consulted Patient is receiving dialysis yesterday Patient underwent kidney biopsy yesterday mycophenolate mofetil 500 mg p.o. b.i.d. # hyperkalemia likely due to MATIAS Corrected # anion gap and non-anion gap metabolic acidosis with compensated respiratory alkalosis likely due to uremic MATIAS -repeat BMP in the morning # hypomagnesemia -slow correction in the setting of MATIAS # hypocalcemia the setting of CKD, dialysis -monitor BMP - discontinued sevelamer, started calcium acetate 2100 mg t.i.d. with meals by laser engraver # hyperphosphatemia likely in the setting of CKD -monitor Infectious disease #?Sepsis likely due to questionable pneumonia -judicious use of IV fluids considering GFR less than three -panculture -IV meropenem #UTI -urine culture -on antibiotics GI #?GI bleed -IV Protonix 40mg BID, switched to pantoprazole oral -FOBT Endocrine Rheumatology #Gout -not in active flare Lines peripheral IV Line Drips Code status discussed with the patient for >21 min, FULL CODE Nutrition Renal diet DVT prophylaxis SCD's currently on hold because of severe anemia director of radio services consulted for arranging outpatient dialysis chair time. downgraded to telemetry Case discussion with DR Thomas Plan discussed with: Patient, Other CC Plasma Assessment Blood Product Administration S: [id number] Date of Service: Apr 04, 2024 Billing Provider: JEROMY RIDDLE MD Common Visit Codes: [id number] INP/OBS CARE(HIGH) JOSÉ BELTRAN RESIDENT Apr 04, 2024 11:48 JEROMY RIDDLE MD Apr 04, 2024 14:22
--- NOTE | 2024-04-04 13:55 | DVHPN2 ---
Progress Note Date Seen: Apr 04, 2024 Medical Necessity Reason Pt with a Central, PICC or Fol: No The following are medically ne: Castellon Catheter Subjective Review of Systems No new complaints Changes from previous H/P or p: No Changes Objective vital signs Vital Sign Date Time Temp Pulse Resp B/P (MAP) Pulse Ox O2 Delivery O2 Flow Rate FiO2 04/04/24 08:30 98.3 83 18 147/87 (107) 96 98.3 04/04/24 08:00 Room Air* 0 21 Total Intake and Output 04/03/24 04/03/24 04/04/24 15:00 23:00 07:00 Intake Total 50 ml 940 ml 350 ml Output Total 400 ml Balance 50 ml 940 ml -50 ml medications Current Medications Medications Dose Ordered Sig/Gianna Route Start Time Stop Time Status Last Admin Dose Admin Sodium Chloride 10 ml Q8HR IV 03/24/24 22:00 04/04/24 06:52 10 ML Acetaminophen 650 mg Q6HP PRN PO 03/24/24 21:00 04/03/24 18:27 650 MG Pantoprazole Sodium 40 mg DAILY@0600 PO 03/28/24 06:00 04/04/24 06:07 40 MG Melatonin 5 mg HS PO 03/28/24 00:04 04/03/24 20:53 5 MG Acetaminophen/ Hydrocodone Bitart 1 tab Q6HPRN PRN PO 03/27/24 22:45 04/04/24 12:15 1 TAB Mycophenolate Mofetil 500 mg BID PO 03/28/24 22:00 04/04/24 09:06 500 MG Calcium Acetate 2,001 mg TIDWMEALS PO 03/28/24 18:00 04/04/24 12:15 2,001 MG Ondansetron HCl 4 mg Q6HPRN PRN IV 03/28/24 16:15 03/30/24 08:13 4 MG Lidocaine HCl 2 ml Q8HPRN PRN TOP 03/28/24 17:45 Hydralazine HCl 5 mg Q6HP PRN IV 03/31/24 08:45 04/01/24 14:56 5 MG Calcitriol 0.5 mcg DAILY PO 03/31/24 11:45 04/04/24 09:06 0.5 MCG Ergocalciferol 50,000 unit Q7D PO 03/31/24 11:45 03/31/24 12:59 50,000 UNIT Polyethylene Glycol 17 gm DAILYPRN PRN PO 03/31/24 16:45 04/03/24 16:20 17 GM Lorazepam 0.5 mg Q6HP PRN IV 04/01/24 17:30 04/03/24 12:06 0.5 MG Amoxicillin/ Clavulanate Potassium 500 mg Q12HR PO 04/04/24 22:00 Examination Gen: Appears stated age, in no acute distress Pulm: Bilateral air entry, no rales CVS: RRR, normal S1 and S2 Ext: No edema noted Neuro:AOx4 laboratory and microbiology Laboratory Tests 04/04/24 09:55 Test 04/04/24 09:55 Range/Units Serum Glucose 127 H 74-106 mg/dL Microbiology Date/Time Source Procedure Growth Status 03/25/24 04:00 Blood Blood Culture - Final NO GROWTH AFTER 5 DAYS OF INCUBATION. Complete 03/24/24 20:56 Voided Urine Urine Culture - Final Enterococcus faecalis Complete Labs and/or images reviewed: Labs reviewed by me Problem List/Assessment/Plan Problem List/Assessment/Plan IMP Acute kidney injury superimposed Chronic Kidney Disease secondary hemodynamic mediated, patient is a visiting from [facility], requiring intermittent hemodialysis-ongoing last HD 04/03 Acute pancreatitis Positive MADI, low C3 and low for C4 consistent with lupus nephritis status post kidney biopsy History of gouty nephropathy Severe anemia status post packed red blood cell transfusion Hyperkalemia Metabolic acidosis NSTEMI Hyperphosphatemia Hypocalcemia Hyponatremia due to excess H2O Nephrotic range proteinuria Status post tunneled hemodialysis catheter REC Plan for next hemodialysis Tues Fluid restriction, document I&Os Rheumatology consult Avoidance of nephrotoxins Renal diet Pt will need chair time set up for outpt dialysis. Pt will not be returning to [facility] We will continue to follow Plan discussed with: Patient, Other (Dr. Welch) CC Plasma Assessment Blood Product Administration S: [id number] MADAN DUVALL ROLL SCALE WORKER Apr 04, 2024 13:55
[2024-04-04] MEDS: AMOXICILLIN/CLAVULAN 500 MG TAB PO ONE (15:54)
[2024-04-04 16:30] VITALS: BP 129/78; PULSE 98; RESP 17; TEMP 98.1; O2SAT 99
[2024-04-04 21:00] VITALS: BP 136/77; PULSE 106; RESP 17; TEMP 98.5; O2SAT 98
[2024-04-04] MEDS: AMOXICILLIN/CLAVULAN 500 MG TAB PO SCH (22:00)
[2024-04-05] VITALS (7 sets, daily range): BP systolic 105–138; BP diastolic 71–85; PULSE 82–115; RESP 16–21; TEMP 98–98.6; O2SAT 94–100
[2024-04-05] MEDS ORDERED: ALLO300T2 PO (02:00)
[2024-04-05] MEDS: ACETAMINOPHEN 325 MG TAB PO ONE (02:06)
[2024-04-05] MEDS ORDERED: COLCPOW2 PO (02:18)
[2024-04-05] MEDS: MORPHINE SULFATE INJ 2 MG/ml SYRG IV ONE (05:19)
--- NOTE | 2024-04-05 10:39 | DVHPNRES ---
Progress Note Date Seen: Apr 05, 2024 Resident Creating Document: JOSÉ BELTRAN RESIDENT Medical Necessity Reason Pt with a Central, PICC or Fol: No The following are medically ne: Castellon Catheter Subjective Review of Systems pt seen and examined at bedside, currently mentioning of pain in multiple joints in the hands, ankle. she is also not able to sleep because of pain Objective vital signs Vital Sign Date Time Temp Pulse Resp B/P (MAP) Pulse Ox O2 Delivery O2 Flow Rate FiO2 04/05/24 09:00 98.0 110 20 128/77 (94) 98 98.0 04/04/24 20:00 Room Air* 0 21 Total Intake and Output 04/04/24 04/04/24 04/05/24 15:00 23:00 07:00 Intake Total 290 ml 420 ml 375 ml Output Total 500 ml Balance 290 ml -80 ml 375 ml medications Current Medications Medications Dose Ordered Sig/Gianna Route Start Time Stop Time Status Last Admin Dose Admin Sodium Chloride 10 ml Q8HR IV 03/24/24 22:00 04/05/24 05:19 10 ML Acetaminophen 650 mg Q6HP PRN PO 03/24/24 21:00 04/04/24 17:22 650 MG Pantoprazole Sodium 40 mg DAILY@0600 PO 03/28/24 06:00 04/05/24 05:13 40 MG Melatonin 5 mg HS PO 03/28/24 00:04 04/04/24 22:00 5 MG Acetaminophen/ Hydrocodone Bitart 1 tab Q6HPRN PRN PO 03/27/24 22:45 04/05/24 09:16 1 TAB Mycophenolate Mofetil 500 mg BID PO 03/28/24 22:00 04/05/24 09:17 500 MG Calcium Acetate 2,001 mg TIDWMEALS PO 03/28/24 18:00 04/05/24 09:16 2,001 MG Ondansetron HCl 4 mg Q6HPRN PRN IV 03/28/24 16:15 03/30/24 08:13 4 MG Lidocaine HCl 2 ml Q8HPRN PRN TOP 03/28/24 17:45 Hydralazine HCl 5 mg Q6HP PRN IV 03/31/24 08:45 04/01/24 14:56 5 MG Calcitriol 0.5 mcg DAILY PO 03/31/24 11:45 04/05/24 09:16 0.5 MCG Ergocalciferol 50,000 unit Q7D PO 03/31/24 11:45 03/31/24 12:59 50,000 UNIT Polyethylene Glycol 17 gm DAILYPRN PRN PO 03/31/24 16:45 04/03/24 16:20 17 GM Lorazepam 0.5 mg Q6HP PRN IV 04/01/24 17:30 04/05/24 00:06 0.5 MG Amoxicillin/ Clavulanate Potassium 500 mg Q12HR PO 04/04/24 22:00 04/05/24 10:28 500 MG Examination Examination General Appearance: Alert, Oriented X3, Cooperative, No acute distress HEENT: EOMI Respiratory: Clear to auscultation, Normal air movement Cardiovascular: Regular rate, Normal S1, Normal S2, tunneled subclavian catheter present on the right side Abdominal: Normal bowel sounds Extremities: Bilateral lower leg pain, No cyanosis, No edema, Normal pulses, No tenderness/swelling, ankle tenderness, hand PIP and DIP tenderness multiple joints Skin: No rashes, No breakdown Neuro: Normal speech and tone laboratory and microbiology Laboratory Tests 04/04/24 09:55 Test 04/04/24 09:55 Range/Units Serum Glucose 127 H 74-106 mg/dL Microbiology Date/Time Source Procedure Growth Status 03/25/24 04:00 Blood Blood Culture - Final NO GROWTH AFTER 5 DAYS OF INCUBATION. Complete 03/24/24 20:56 Voided Urine Urine Culture - Final Enterococcus faecalis Complete Labs and/or images reviewed: Labs reviewed by me, Image(s) reviewed by me Problem List/Assessment/Plan Problem List/Assessment/Plan Assessment/plan Neurology Cardiology # NSTEMI type 2 -likely due to MATIAS on CKD -EKG for monitoring #Superficial venous thrombosis -warm compresses Respiratory # Acute hypoxic respiratory failure likely in the setting of severe anemia, volume overload/pulmonary congestion/questionable pneumonia, improving Currently on room air -IV Lasix 100 mg b.i.d, discontinued #?Questionable pneumonia, comminuted required, Gram-positive/Gram-negative -IV cefriaxone plus IV doxycycline, switched to augmentin -sputum culture MRSA screen Hematology # Severe Anemia requiring blood transfusion, normocytic anemia, possibly due to anemia of chronic disease due to CKD, ?GI bleed -transfused with 4 units of PRBC -CBC in the a.m. Nephrology # MATIAS over CKD ?Glomerulonephritis likely lupus nephritis -nephrology consulted Planning dialysis -FeNA 2.7% -HIV, hep b, hep C, RPR Patient underwent tunneled dialysis catheter today Positive MADI, low C3 and low for C4 consistent with lupus nephritis Rheumatological consult as per recommendation from Nephrology Kidney biopsy for confirmation for diagnosis of lupus nephritis, Radiology consulted Patient is receiving dialysis yesterday Patient underwent kidney biopsy yesterday mycophenolate mofetil 500 mg p.o. b.i.d. # hyperkalemia likely due to MATIAS Corrected # anion gap and non-anion gap metabolic acidosis with compensated respiratory alkalosis likely due to uremic MATIAS -repeat BMP in the morning # hypomagnesemia -slow correction in the setting of MATIAS # hypocalcemia the setting of CKD, dialysis -monitor BMP - discontinued sevelamer, started calcium acetate 2100 mg t.i.d. with meals by foundry helper # hyperphosphatemia likely in the setting of CKD -monitor Infectious disease #?Sepsis likely due to questionable pneumonia -judicious use of IV fluids considering GFR less than three -panculture -IV meropenem #UTI -urine culture -on antibiotics GI #?GI bleed -IV Protonix 40mg BID, switched to pantoprazole oral -FOBT Endocrine Rheumatology #Gout -not in active flare #multiple joint pain, likely SLE flare up -Prednisone 20mg daily Lines peripheral IV Line Drips Code status discussed with the patient for >21 min, FULL CODE Nutrition Renal diet DVT prophylaxis SCD's currently on hold because of severe anemia human services worker consulted for arranging outpatient dialysis chair time. downgraded to telemetry Case discussion with DR Riddle Plan discussed with: Patient My Orders My Orders Orders - JOSÉ BELTRAN RESIDENT Procedure Category Date Status Time Warm Compresses ORDERS 04/04/24 Transmitted 11:46 Discontinue Tele DEAN 04/04/24 In Process 12:32 Amoxicillin/Clavulanate PHA 04/04/24 In Process Tablet (Augmenti 22:00 Complete Blood Count LAB 04/05/24 Logged 08:18 Basic Metabolic Panel LAB 04/05/24 Logged 08:18 Prednisone Tablet PHA 04/05/24 Transmitted 10:45 Prednisone Tablet PHA 04/06/24 Transmitted 10:00 CC Plasma Assessment Blood Product Administration S: 06 Date of Service: Apr 05, 2024 Billing Provider: JEROMY RIDDLE MD Common Visit Codes: [id number] INP/OBS CARE(HIGH) JOSÉ BELTRAN RESIDENT Apr 05, 2024 10:39 JEROMY RIDDLE MD Apr 06, 2024 11:00
[2024-04-05 11:22] LABS: Basophils # (auto) 0 10 ^3/uL (0-0.2); Eosinophils # (auto) 0.1 10 ^3/uL (0-0.8); Hemoglobin 7.8 g/dL (12.2-16.2); Monocytes # (auto) 0.9 10 ^3/uL (0-1.3); Neutrophils # (auto) 12.5 10 ^3/uL (1.6-8.6)
[2024-04-05 11:25] LABS: Basophils % (auto) 0.2 % (0.0-2.0); Eosinophils % (auto) 0.5 % (0.0-7.0); Hematocrit 23.7 % (36.0-46.0); Lymphocytes # (auto) 0.3 10 ^3/uL (0.4-5.4); Lymphocytes % (auto) 2.5 % (10.0-50.0); Mean Corpuscular Hemoglobin 29.5 pg (28.0-32.0); Mean Corpuscular Volume 89.3 fL (80.0-100.0); Monocytes % (auto) 6.4 % (0.0-12.0); Neutrophils % (auto) 90.4 % (37.0-80.0); Platelet Count (auto) 230 10^3/uL (140-450); Red Blood Cells 2.65 10^6/uL (4.0-5.20); Red Cell Distribution Width 15.1 % (11.8-14.3); White Blood Cell 13.8 10^3/uL (4.4-10.8)
[2024-04-05 11:36] LABS: Anion Gap 8 (5-15); Carbon Dioxide 25 mmol/L (20-31); Potassium 4.9 mmol/L (3.5-5.1)
[2024-04-05 11:37] LABS: Chloride 91 mmol/L (98-107); Sodium 124 mmol/L (136-145)
[2024-04-05 11:38] LABS: Calcium 8.4 mg/dL (8.7-10.4)
[2024-04-05 11:42] LABS: BUN/Creatinine Ratio 7.6 (10.0-20.0)
[2024-04-05 11:43] LABS: Blood Urea Nitrogen 43 mg/dL (9-23); Glucose 118 mg/dL (74-106)
[2024-04-05] MEDS: predniSONE 20 MG TAB PO ONE (14:04)
[2024-04-05] MEDS: KETOROLAC TROMETH 30 MG/ML 1ML VIAL IV ONE (16:16)
--- NOTE | 2024-04-05 16:51 | DVHPN2 ---
Progress Note Date Seen: Apr 05, 2024 Medical Necessity Reason Pt with a Central, PICC or Fol: No The following are medically ne: Castellon Catheter Subjective Patient reports: No new complaints Objective vital signs Vital Sign Date Time Temp Pulse Resp B/P (MAP) Pulse Ox O2 Delivery O2 Flow Rate FiO2 04/05/24 13:00 98.1 115 21 117/85 (96) 100 98.1 04/05/24 08:00 Room Air* 0 21 Total Intake and Output 04/04/24 04/04/24 04/05/24 15:00 23:00 07:00 Intake Total 290 ml 420 ml 375 ml Output Total 500 ml Balance 290 ml -80 ml 375 ml medications Current Medications Medications Dose Ordered Sig/Gianna Route Start Time Stop Time Status Last Admin Dose Admin Sodium Chloride 10 ml Q8HR IV 03/24/24 22:00 04/05/24 14:06 10 ML Acetaminophen 650 mg Q6HP PRN PO 03/24/24 21:00 04/05/24 14:05 650 MG Pantoprazole Sodium 40 mg DAILY@0600 PO 03/28/24 06:00 04/05/24 05:13 40 MG Melatonin 5 mg HS PO 03/28/24 00:04 04/04/24 22:00 5 MG Acetaminophen/ Hydrocodone Bitart 1 tab Q6HPRN PRN PO 03/27/24 22:45 04/05/24 09:16 1 TAB Mycophenolate Mofetil 500 mg BID PO 03/28/24 22:00 04/05/24 09:17 500 MG Calcium Acetate 2,001 mg TIDWMEALS PO 03/28/24 18:00 04/05/24 14:04 2,001 MG Ondansetron HCl 4 mg Q6HPRN PRN IV 03/28/24 16:15 03/30/24 08:13 4 MG Lidocaine HCl 2 ml Q8HPRN PRN TOP 03/28/24 17:45 Hydralazine HCl 5 mg Q6HP PRN IV 03/31/24 08:45 04/01/24 14:56 5 MG Calcitriol 0.5 mcg DAILY PO 03/31/24 11:45 04/05/24 09:16 0.5 MCG Ergocalciferol 50,000 unit Q7D PO 03/31/24 11:45 03/31/24 12:59 50,000 UNIT Polyethylene Glycol 17 gm DAILYPRN PRN PO 03/31/24 16:45 04/03/24 16:20 17 GM Lorazepam 0.5 mg Q6HP PRN IV 04/01/24 17:30 04/05/24 00:06 0.5 MG Amoxicillin/ Clavulanate Potassium 500 mg Q12HR PO 04/04/24 22:00 04/05/24 10:28 500 MG Prednisone 20 mg DAILY PO 04/06/24 10:00 Morphine Sulfate 2 mg Q6HPRN PRN IV 04/05/24 16:00 Examination: LUNGS:Normal, CVS:Normal, MSK:Normal laboratory and microbiology Laboratory Tests 04/05/24 10:45 Test 04/05/24 10:45 Range/Units Serum Glucose 118 H 74-106 mg/dL Microbiology Date/Time Source Procedure Growth Status 03/25/24 04:00 Blood Blood Culture - Final NO GROWTH AFTER 5 DAYS OF INCUBATION. Complete 03/24/24 20:56 Voided Urine Urine Culture - Final Enterococcus faecalis Complete Problem List/Assessment/Plan Problem List/Assessment/Plan Acute kidney injury superimposed Chronic Kidney Disease secondary hemodynamic mediated, patient is a visiting from [facility], requiring intermittent hemodialysis Acute pancreatitis Positive MADI, low C3 and low for C4 consistent with lupus nephritis status post kidney biopsy History of gouty nephropathy Severe anemia status post packed red blood cell transfusion Hyperkalemia Metabolic acidosis NSTEMI Hyperphosphatemia Hypocalcemia Hyponatremia due to excess H2O Nephrotic range proteinuria Status post tunneled hemodialysis catheter Recommendations HD tomorrow Epogen 13441 IV post hemodialysis Calcium gluconate IV piggyback Calcium acetate 2001 mg p.o. t.i.d. with meals Fluid restrictions Rheumatology consult Renal diet Continue prednisone and mycophenolate We will continue to follow Plan discussed with: Patient My Orders My Orders Orders - PREET DOLAN MD Procedure Category Date Status Time Hemodialysis Orders ORDERS 04/06/24 Transmitted 07:00 Dialysis Nursing DEAN 04/06/24 In Process Message 07:00 Heparin Sodium PHA 04/06/24 In Process (Porcine) 07:00 Heparin Sodium PHA 04/06/24 In Process (Porcine) 07:00 Sodium Chloride 0.9% PHA 04/06/24 In Process 07:00 Document Fluid Input DEAN 04/06/24 In Process And Outpu 07:00 Epoetin Shabbir-Epbx PHA 04/06/24 In Process (Retacrit) 21:00 CC Plasma Assessment Blood Product Administration S: [id number] PREET DOLAN MD Apr 05, 2024 16:51
[2024-04-06] VITALS (7 sets, daily range): BP systolic 121–151; BP diastolic 75–90; PULSE 89–118; RESP 17–20; TEMP 97.9–99; O2SAT 95–98
[2024-04-06] MEDS: SODIUM CHL 0.9% 1000 ML BAG XX ONE (07:00)
[2024-04-06] MEDS: predniSONE 20 MG TAB PO SCH (10:11)
[2024-04-06 12:18] LABS: Basophils # (auto) 0 10 ^3/uL (0-0.2); Eosinophils # (auto) 0.1 10 ^3/uL (0-0.8); Lymphocytes # (auto) 0.4 10 ^3/uL (0.4-5.4); Monocytes # (auto) 1.2 10 ^3/uL (0-1.3); Neutrophils # (auto) 9.9 10 ^3/uL (1.6-8.6); White Blood Cell 11.6 10^3/uL (4.4-10.8)
[2024-04-06 12:20] LABS: Basophils % (auto) 0.2 % (0.0-2.0); Hematocrit 21.7 % (36.0-46.0); Hemoglobin 7.2 g/dL (12.2-16.2); Lymphocytes % (auto) 3.6 % (10.0-50.0); Mean Corpuscular Hgb Conc. 33.2 g/dL (32.0-36.0); Mean Corpuscular Volume 87.5 fL (80.0-100.0); Monocytes % (auto) 10.3 % (0.0-12.0); Neutrophils % (auto) 84.9 % (37.0-80.0); Platelet Count (auto) 216 10^3/uL (140-450); Red Blood Cells 2.48 10^6/uL (4.0-5.20); Red Cell Distribution Width 15.2 % (11.8-14.3)
[2024-04-06 12:31] LABS: Anion Gap 6 (5-15); Carbon Dioxide 27 mmol/L (20-31)
[2024-04-06 12:36] LABS: BUN/Creatinine Ratio 8.7 (10.0-20.0); Magnesium 1.9 mg/dL (1.6-2.6)
[2024-04-06 12:54] LABS: Blood Urea Nitrogen 57 mg/dL (9-23); Chloride 91 mmol/L (98-107); Glucose 115 mg/dL (74-106); Sodium 124 mmol/L (136-145)
--- NOTE | 2024-04-06 13:00 | DVHPN2 ---
Progress Note Date Seen: Apr 06, 2024 Medical Necessity Reason Pt with a Central, PICC or Fol: No The following are medically ne: Castellon Catheter Subjective Patient reports: No new complaints Other Systems: Patient seen and examined by myself today in follow-up Patient examined hemodialysis, blood pressure stable Objective vital signs Vital Sign Date Time Temp Pulse Resp B/P (MAP) Pulse Ox O2 Delivery O2 Flow Rate FiO2 04/06/24 09:00 98.0 89 19 121/79 (93) 95 98.0 04/06/24 08:00 Room Air* 0 21 Total Intake and Output 04/05/24 04/05/24 04/06/24 15:00 23:00 07:00 Intake Total 450 ml 420 ml Output Total 300 ml Balance 450 ml 120 ml medications Current Medications Medications Dose Ordered Sig/Gianna Route Start Time Stop Time Status Last Admin Dose Admin Sodium Chloride 10 ml Q8HR IV 03/24/24 22:00 04/06/24 06:13 10 ML Acetaminophen 650 mg Q6HP PRN PO 03/24/24 21:00 04/05/24 14:05 650 MG Pantoprazole Sodium 40 mg DAILY@0600 PO 03/28/24 06:00 04/06/24 06:13 40 MG Melatonin 5 mg HS PO 03/28/24 00:04 04/05/24 21:53 5 MG Mycophenolate Mofetil 500 mg BID PO 03/28/24 22:00 04/06/24 10:25 500 MG Calcium Acetate 2,001 mg TIDWMEALS PO 03/28/24 18:00 04/06/24 10:11 2,001 MG Ondansetron HCl 4 mg Q6HPRN PRN IV 03/28/24 16:15 03/30/24 08:13 4 MG Lidocaine HCl 2 ml Q8HPRN PRN TOP 03/28/24 17:45 Hydralazine HCl 5 mg Q6HP PRN IV 03/31/24 08:45 04/01/24 14:56 5 MG Calcitriol 0.5 mcg DAILY PO 03/31/24 11:45 04/06/24 10:11 0.5 MCG Ergocalciferol 50,000 unit Q7D PO 03/31/24 11:45 03/31/24 12:59 50,000 UNIT Polyethylene Glycol 17 gm DAILYPRN PRN PO 03/31/24 16:45 04/03/24 16:20 17 GM Lorazepam 0.5 mg Q6HP PRN IV 04/01/24 17:30 04/05/24 00:06 0.5 MG Amoxicillin/ Clavulanate Potassium 500 mg Q12HR PO 04/04/24 22:00 04/06/24 10:24 500 MG Prednisone 20 mg DAILY PO 04/06/24 10:00 04/06/24 10:11 20 MG Morphine Sulfate 2 mg Q6HPRN PRN IV 04/05/24 16:00 Examination: LUNGS:Normal, CVS:Normal, MSK:Normal laboratory and microbiology Laboratory Tests 04/06/24 12:04 Test 04/06/24 12:04 Range/Units Serum Glucose 115 H 74-106 mg/dL Microbiology Date/Time Source Procedure Growth Status 03/25/24 04:00 Blood Blood Culture - Final NO GROWTH AFTER 5 DAYS OF INCUBATION. Complete 03/24/24 20:56 Voided Urine Urine Culture - Final Enterococcus faecalis Complete Problem List/Assessment/Plan Problem List/Assessment/Plan Acute kidney injury superimposed Chronic Kidney Disease secondary hemodynamic mediated, patient is a visiting from [facility], requiring intermittent hemodialysis Acute pancreatitis Positive MADI, low C3 and low for C4 consistent with lupus nephritis status post kidney biopsy History of gouty nephropathy Severe anemia status post packed red blood cell transfusion Hyperkalemia Metabolic acidosis NSTEMI Hyperphosphatemia Hypocalcemia Hyponatremia due to excess H2O Nephrotic range proteinuria Status post tunneled hemodialysis catheter Recommendations Continue with UF to 3 L as tolerated Epogen 93676 IV post hemodialysis Calcium gluconate IV piggyback Calcium acetate 2001 mg p.o. t.i.d. with meals Fluid restrictions Kidney biopsy result is pending Rheumatology consult Renal diet Continue prednisone and mycophenolate We will continue to follow Plan discussed with: Patient CC Plasma Assessment Blood Product Administration S: [id number] PREET DOLAN MD Apr 06, 2024 13:00
--- NOTE | 2024-04-06 15:39 | DVHPNRES ---
Progress Note Date Seen: Apr 06, 2024 Resident Creating Document: JOSÉ BELTRAN RESIDENT Medical Necessity Reason Pt with a Central, PICC or Fol: No The following are medically ne: Castellon Catheter Subjective Review of Systems pt seen and examined at bedside, pt is mentioning of improvement in her symptoms. Later in the hospital she started having multiple joint pain. Objective vital signs Vital Sign Date Time Temp Pulse Resp B/P (MAP) Pulse Ox O2 Delivery O2 Flow Rate FiO2 04/06/24 13:07 98.0 96 18 143/85 (104) 97 98.0 04/06/24 08:00 Room Air* 0 21 Total Intake and Output 04/05/24 04/05/24 04/06/24 15:00 23:00 07:00 Intake Total 450 ml 420 ml Output Total 300 ml Balance 450 ml 120 ml medications Current Medications Medications Dose Ordered Sig/Gianna Route Start Time Stop Time Status Last Admin Dose Admin Sodium Chloride 10 ml Q8HR IV 03/24/24 22:00 04/06/24 06:13 10 ML Acetaminophen 650 mg Q6HP PRN PO 03/24/24 21:00 04/05/24 14:05 650 MG Pantoprazole Sodium 40 mg DAILY@0600 PO 03/28/24 06:00 04/06/24 06:13 40 MG Melatonin 5 mg HS PO 03/28/24 00:04 04/05/24 21:53 5 MG Mycophenolate Mofetil 500 mg BID PO 03/28/24 22:00 04/06/24 10:25 500 MG Calcium Acetate 2,001 mg TIDWMEALS PO 03/28/24 18:00 04/06/24 10:11 2,001 MG Ondansetron HCl 4 mg Q6HPRN PRN IV 03/28/24 16:15 03/30/24 08:13 4 MG Lidocaine HCl 2 ml Q8HPRN PRN TOP 03/28/24 17:45 Hydralazine HCl 5 mg Q6HP PRN IV 03/31/24 08:45 04/01/24 14:56 5 MG Calcitriol 0.5 mcg DAILY PO 03/31/24 11:45 04/06/24 10:11 0.5 MCG Ergocalciferol 50,000 unit Q7D PO 03/31/24 11:45 12/25/24 12:59 50,000 UNIT Polyethylene Glycol 17 gm DAILYPRN PRN PO 03/31/24 16:45 04/03/24 16:20 17 GM Lorazepam 0.5 mg Q6HP PRN IV 04/01/24 17:30 04/05/24 00:06 0.5 MG Amoxicillin/ Clavulanate Potassium 500 mg Q12HR PO 04/04/24 22:00 04/06/24 10:24 500 MG Prednisone 20 mg DAILY PO 04/06/24 10:00 04/06/24 10:11 20 MG Morphine Sulfate 2 mg Q6HPRN PRN IV 04/05/24 16:00 laboratory and microbiology Laboratory Tests 04/06/24 12:04 Test 04/06/24 12:04 Range/Units Serum Glucose 115 H 74-106 mg/dL Microbiology Date/Time Source Procedure Growth Status 03/25/24 04:00 Blood Blood Culture - Final NO GROWTH AFTER 5 DAYS OF INCUBATION. Complete 03/24/24 20:56 Voided Urine Urine Culture - Final Enterococcus faecalis Complete Problem List/Assessment/Plan Problem List/Assessment/Plan Assessment/plan Neurology Cardiology # NSTEMI type 2 -likely due to MATIAS on CKD -EKG for monitoring #Superficial venous thrombosis -warm compresses Respiratory # Acute hypoxic respiratory failure likely in the setting of severe anemia, volume overload/pulmonary congestion/questionable pneumonia, improving Currently on room air -IV Lasix 100 mg b.i.d, discontinued #?Questionable pneumonia, comminuted required, Gram-positive/Gram-negative -IV ceftriaxone plus IV doxycycline, switched to augmentin -sputum culture MRSA screen Hematology # Severe Anemia requiring blood transfusion, normocytic anemia, possibly due to anemia of chronic disease due to CKD, ?GI bleed -transfused with 4 units of PRBC -CBC in the a.m. Nephrology # MATIAS over CKD ?Glomerulonephritis likely lupus nephritis -nephrology consulted Planning dialysis -FeNA 2.7% -HIV, hep b, hep C, RPR Patient underwent tunneled dialysis catheter today Positive MADI, low C3 and low for C4 consistent with lupus nephritis Rheumatological consult as per recommendation from Nephrology Kidney biopsy for confirmation for diagnosis of lupus nephritis, Radiology consulted Patient is receiving dialysis yesterday Patient underwent kidney biopsy yesterday mycophenolate mofetil 500 mg p.o. b.i.d. # hyperkalemia likely due to MATIAS Corrected # anion gap and non-anion gap metabolic acidosis with compensated respiratory alkalosis likely due to uremic MATIAS -repeat BMP in the morning # hypomagnesemia -slow correction in the setting of MATIAS # hypocalcemia the setting of CKD, dialysis -monitor BMP - discontinued sevelamer, started calcium acetate 2100 mg t.i.d. with meals by account receivable clerk # hyperphosphatemia likely in the setting of CKD -monitor Infectious disease #?Sepsis likely due to questionable pneumonia -judicious use of IV fluids considering GFR less than three -panculture -IV meropenem #UTI -urine culture -on antibiotics GI #?GI bleed -IV Protonix 40mg BID, switched to pantoprazole oral -FOBT Endocrine Rheumatology #Gout -not in active flare #multiple joint pain, likely SLE flare up -Prednisone 20mg daily Lines peripheral IV Line Drips Code status discussed with the patient for >21 min, FULL CODE Nutrition Renal diet DVT prophylaxis SCD's currently on hold because of severe anemia manager student services consulted for arranging outpatient dialysis chair time. downgraded to med/surg Case discussion with DR Riddle Plan discussed with: Patient, Other My Orders My Orders Orders - JOSÉ BELTRAN RESIDENT Procedure Category Date Status Time Morphine Sulfate PHA 04/05/24 In Process Injection 16:00 Bilat Lower Dvt US 04/06/24 Logged 15:32 CC Plasma Assessment Blood Product Administration S: [id number] Date of Service: Apr 06, 2024 Billing Provider: JEROMY RIDDLE MD Common Visit Codes: [id number] INP/OBS CARE(HIGH) JOSÉ BELTRAN Apr 06, 2024 15:39 JEROMY RIDDLE MD Apr 06, 2024 15:44
--- NOTE | 2024-04-06 16:31 | DVH ---
Procedure: US BiLat Lower DVT Study Date and Requested Time: 04/06/2024 04:05 PM History: bilateral lower leg swelling Comparison: None Technique: Multiple high resolution gan-scale images with and without compression obtained of the bi lateral lower extremity veins, including the common femoral vein, deep femoral vein, proximal mid and distal superficial femoral vein, and popliteal vein. Additional limited images of the greater saphen ous vein also obtained. Augmentation performed as indicated. Color and spectral doppler flow images o btained as indicated. Findings: No visible intraluminal venous thrombus. No evidence of incompressibility or abnormal color or spectr al Doppler flow visualized in the bilateral lower extremity veins including, the common femoral vein, deep femoral vein, proximal mid and distal superficial femoral vein, and popliteal vein. Greater sap henous vein grossly unremarkable. Right lower extremity soft tissue edema is noted. Impression: No sonographic evidence of bilateral lower extremity deep venous thrombosis.
[2024-04-06] MEDS: EPOETIN ALFA-EPBX 10,000 UNIT/1ML VIAL SC ONE (21:20)
[2024-04-06] MEDS: MORPHINE SULFATE INJ 2 MG/ml SYRG IV PRN (23:26)
[2024-04-07] VITALS (9 sets, daily range): BP systolic 108–171; BP diastolic 70–93; PULSE 18–119; RESP 14–18; TEMP 98.1–98.8; O2SAT 92–98
[2024-04-07] MEDS: predniSONE 20 MG TAB PO SCH ×2 (10:00→21:30)
[2024-04-07 11:13] LABS: Basophils # (auto) 0 10 ^3/uL (0-0.2); Basophils % (auto) 0.2 % (0.0-2.0); Eosinophils # (auto) 0.2 10 ^3/uL (0-0.8); Hemoglobin 8.1 g/dL (12.2-16.2); Lymphocytes # (auto) 0.7 10 ^3/uL (0.4-5.4); Lymphocytes % (auto) 7.8 % (10.0-50.0); Mean Corpuscular Hemoglobin 28.8 pg (28.0-32.0); Mean Corpuscular Hgb Conc. 32.4 g/dL (32.0-36.0); Mean Corpuscular Volume 89.1 fL (80.0-100.0); Monocytes # (auto) 0.9 10 ^3/uL (0-1.3); Monocytes % (auto) 9.6 % (0.0-12.0); Neutrophils # (auto) 7.2 10 ^3/uL (1.6-8.6); Neutrophils % (auto) 80.4 % (37.0-80.0); Nucleated Red Blood Cells % 0.1 %; Platelet Count (auto) 283 10^3/uL (140-450); Red Blood Cells 2.81 10^6/uL (4.0-5.20); Red Cell Distribution Width 15.8 % (11.8-14.3); White Blood Cell 8.9 10^3/uL (4.4-10.8)
[2024-04-07 11:23] LABS: Anion Gap 7 (5-15); Carbon Dioxide 27 mmol/L (20-31)
[2024-04-07 11:25] LABS: Calcium 8.6 mg/dL (8.7-10.4); Chloride 97 mmol/L (98-107); Sodium 131 mmol/L (136-145)
[2024-04-07 11:29] LABS: BUN/Creatinine Ratio 7.6 (10.0-20.0); Magnesium 1.8 mg/dL (1.6-2.6)
[2024-04-07 11:37] LABS: Blood Urea Nitrogen 39 mg/dL (9-23); Glucose 120 mg/dL (74-106)
--- NOTE | 2024-04-07 11:41 | DVHPN2 ---
Progress Note Date Seen: Apr 07, 2024 Medical Necessity Reason Pt with a Central, PICC or Fol: No The following are medically ne: Castellon Catheter Subjective Patient reports: Feels better Objective vital signs Vital Sign Date Time Temp Pulse Resp B/P (MAP) Pulse Ox O2 Delivery O2 Flow Rate FiO2 04/07/24 09:00 98.7 116 17 108/70 (83) 98 98.7 04/07/24 08:00 Room Air* 0 21 Total Intake and Output 04/06/24 04/06/24 04/07/24 15:00 23:00 07:00 Intake Total 460 ml 100 ml Balance 460 ml 100 ml medications Current Medications Medications Dose Ordered Sig/Gianna Route Start Time Stop Time Status Last Admin Dose Admin Sodium Chloride 10 ml Q8HR IV 03/24/24 22:00 04/07/24 06:26 10 ML Acetaminophen 650 mg Q6HP PRN PO 03/24/24 21:00 04/05/24 14:05 650 MG Melatonin 5 mg HS PO 03/28/24 00:04 04/06/24 21:20 5 MG Mycophenolate Mofetil 500 mg BID PO 03/28/24 22:00 04/07/24 08:17 500 MG Calcium Acetate 2,001 mg TIDWMEALS PO 03/28/24 18:00 04/07/24 08:16 2,001 MG Ondansetron HCl 4 mg Q6HPRN PRN IV 03/28/24 16:15 04/06/24 23:19 4 MG Lidocaine HCl 2 ml Q8HPRN PRN TOP 03/28/24 17:45 Hydralazine HCl 5 mg Q6HP PRN IV 03/31/24 08:45 04/01/24 14:56 5 MG Calcitriol 0.5 mcg DAILY PO 03/31/24 11:45 04/07/24 08:16 0.5 MCG Ergocalciferol 50,000 unit Q7D PO 03/31/24 11:45 04/07/24 08:16 50,000 UNIT Polyethylene Glycol 17 gm DAILYPRN PRN PO 03/31/24 16:45 04/06/24 18:51 17 GM Lorazepam 0.5 mg Q6HP PRN IV 04/01/24 17:30 04/05/24 00:06 0.5 MG Morphine Sulfate 2 mg Q6HPRN PRN IV 04/05/24 16:00 04/06/24 23:26 2 MG Prednisone 40 mg DAILY PO 04/07/24 09:30 04/07/24 10:25 40 MG Examination: GENERAL:Normal, CVS:Normal, ABDOMEN:Normal laboratory and microbiology Laboratory Tests 04/07/24 10:45 Test 04/07/24 10:45 Range/Units Serum Glucose Pending Microbiology Date/Time Source Procedure Growth Status 03/25/24 04:00 Blood Blood Culture - Final NO GROWTH AFTER 5 DAYS OF INCUBATION. Complete 03/24/24 20:56 Voided Urine Urine Culture - Final Enterococcus faecalis Complete Problem List/Assessment/Plan Problem List/Assessment/Plan Acute kidney injury likely due to acute GN baseline renal function is unknown Acute pancreatitis Positive MADI, low C3 and low for C4 consistent with lupus nephritis History of gouty nephropathy Severe anemia status post packed red blood cell transfusion NSTEMI Hyperphosphatemia Hypocalcemia due to hyperphosphatemia Nephrotic range proteinuria Status post tunneled hemodialysis catheter Hemodialysis tomorrow then can be discharged Epogen 17767 IV post hemodialysis Calcium acetate 2001 mg p.o. t.i.d. with meals s/p loading steroids now on po mycophenolate 500 mg p.o. b.i.d. Rheumatology consult Renal diet Plan discussed with: Patient CC Plasma Assessment Blood Product Administration S: 0630 KOMAL VINES MD Apr 07, 2024 11:41
--- NOTE | 2024-04-07 13:23 | DVHPNRES ---
Progress Note Date Seen: Apr 07, 2024 Resident Creating Document: JOSÉ BELTRAN RESIDENT Medical Necessity Reason Pt with a Central, PICC or Fol: No The following are medically ne: Castellon Catheter Subjective Review of Systems pt seen and examined at bedside, mentioning of pain in multiple joints she received dialysis yesterday Objective vital signs Vital Sign Date Time Temp Pulse Resp B/P (MAP) Pulse Ox O2 Delivery O2 Flow Rate FiO2 04/07/24 09:00 98.7 116 17 108/70 (83) 98 98.7 04/07/24 08:00 Room Air* 0 21 Total Intake and Output 04/06/24 04/06/24 04/07/24 15:00 23:00 07:00 Intake Total 460 ml 100 ml Balance 460 ml 100 ml medications Current Medications Medications Dose Ordered Sig/Gianna Route Start Time Stop Time Status Last Admin Dose Admin Sodium Chloride 10 ml Q8HR IV 03/24/24 22:00 04/07/24 06:26 10 ML Acetaminophen 650 mg Q6HP PRN PO 03/24/24 21:00 04/05/24 14:05 650 MG Melatonin 5 mg HS PO 03/28/24 00:04 04/06/24 21:20 5 MG Mycophenolate Mofetil 500 mg BID PO 03/28/24 22:00 04/07/24 08:17 500 MG Calcium Acetate 2,001 mg TIDWMEALS PO 03/28/24 18:00 04/07/24 11:47 2,001 MG Ondansetron HCl 4 mg Q6HPRN PRN IV 03/28/24 16:15 04/06/24 23:19 4 MG Lidocaine HCl 2 ml Q8HPRN PRN TOP 03/28/24 17:45 Hydralazine HCl 5 mg Q6HP PRN IV 03/31/24 08:45 04/01/24 14:56 5 MG Calcitriol 0.5 mcg DAILY PO 03/31/24 11:45 04/07/24 08:16 0.5 MCG Ergocalciferol 50,000 unit Q7D PO 03/31/24 11:45 04/07/24 08:16 50,000 UNIT Polyethylene Glycol 17 gm DAILYPRN PRN PO 03/31/24 16:45 04/06/24 18:51 17 GM Lorazepam 0.5 mg Q6HP PRN IV 04/01/24 17:30 04/05/24 00:06 0.5 MG Morphine Sulfate 2 mg Q6HPRN PRN IV 04/05/24 16:00 04/06/24 23:26 2 MG Prednisone 40 mg DAILY PO 04/07/24 09:30 04/07/24 10:25 40 MG Examination Examination General Appearance: Alert, Oriented X3, Cooperative, No acute distress HEENT: EOMI Respiratory: Clear to auscultation, Normal air movement Cardiovascular: Regular rate, Normal S1, Normal S2, tunneled subclavian catheter present on the right side Abdominal: Normal bowel sounds Extremities: Bilateral lower leg pain, No cyanosis, No edema, Normal pulses, No tenderness/swelling, ankle tenderness, hand PIP and DIP tenderness multiple joints Skin: No rashes, No breakdown Neuro: Normal speech and tone laboratory and microbiology Laboratory Tests 04/07/24 10:45 Test 04/07/24 10:45 Range/Units Serum Glucose 120 H 74-106 mg/dL Microbiology Date/Time Source Procedure Growth Status 03/25/24 04:00 Blood Blood Culture - Final NO GROWTH AFTER 5 DAYS OF INCUBATION. Complete 03/24/24 20:56 Voided Urine Urine Culture - Final Enterococcus faecalis Complete Labs and/or images reviewed: Labs reviewed by me, Image(s) reviewed by me Problem List/Assessment/Plan Problem List/Assessment/Plan Assessment/plan Neurology Cardiology # NSTEMI type 2 -likely due to MATIAS on CKD -EKG for monitoring #Superficial venous thrombosis -warm compresses Respiratory # Acute hypoxic respiratory failure likely in the setting of severe anemia, volume overload/pulmonary congestion/questionable pneumonia, improving Currently on room air -IV Lasix 100 mg b.i.d, discontinued #?Questionable pneumonia, comminuted required, Gram-positive/Gram-negative -IV ceftriaxone plus IV doxycycline, switched to augmentin, later was discontinued -sputum culture MRSA screen Hematology # Severe Anemia requiring blood transfusion, normocytic anemia, possibly due to anemia of chronic disease due to CKD, ?GI bleed -transfused with 4 units of PRBC -CBC in the a.m. 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 b.i.d. received dialysis yesterday # hyperkalemia likely due to MATIAS Corrected # anion gap and non-anion gap metabolic acidosis with compensated respiratory alkalosis likely due to uremic MATIAS -repeat BMP in the morning # hypomagnesemia -slow correction in the setting of MATIAS # hypocalcemia the setting of CKD, dialysis -monitor BMP - discontinued sevelamer, started calcium acetate 2100 mg t.i.d. with meals by industrial gas servicer # hyperphosphatemia likely in the setting of CKD -monitor Infectious disease #?Sepsis likely due to questionable pneumonia -judicious use of IV fluids -panculture -IV meropenem, discontinued #UTI -urine culture -on antibiotics GI #?GI bleed -IV Protonix 40mg BID, switched to pantoprazole oral -FOBT Endocrine Rheumatology #Gout -not in active flare #multiple joint pain, likely SLE flare up -Prednisone 40mg BID Lines peripheral IV Line Drips Code status discussed with the patient for >21 min, FULL CODE Nutrition Renal diet DVT prophylaxis SCD's currently on hold because of severe anemia business services sales representative consulted for arranging outpatient dialysis chair time downgraded to med/surg Case discussion with DR Riddle Plan discussed with: Patient, Other My Orders My Orders Orders - JOSÉ BELTRAN Procedure Category Date Status Time Bilat Lower Dvt US 04/06/24 Resulted 15:32 Pt Request For Service PT 04/06/24 Logged 15:58 Prednisone Tablet PHA 04/07/24 In Process 09:30 CC Plasma Assessment Blood Product Administration S: 0630 Date of Service: Apr 07, 2024 Billing Provider: JEROMY RIDDLE MD Common Visit Codes: [id number] INP/OBS CARE(HIGH) JOSÉ BELTRAN Apr 07, 2024 13:23 JEROMY RIDDLE MD Apr 08, 2024 16:43
[2024-04-07] MEDS: SODIUM CHL 0.9% 1000 ML BAG XX ONE ×2 (19:32→19:33)
[2024-04-08] VITALS (10 sets, daily range): BP systolic 136–176; BP diastolic 62–105; PULSE 90–117; RESP 13–18; TEMP 97.7–98.4; O2SAT 96–99
[2024-04-08] MEDS ORDERED: SODIUM CHL 0.9% 1000 ML BAG XX ONE (07:00)
--- NOTE | 2024-04-08 09:20 | DVHPN2 ---
Progress Note Date Seen: Apr 08, 2024 Medical Necessity Reason Pt with a Central, PICC or Fol: No The following are medically ne: Castellon Catheter Subjective Patient reports: No new complaints Review of Systems: CVS:Normal Objective vital signs Vital Sign Date Time Temp Pulse Resp B/P (MAP) Pulse Ox O2 Delivery O2 Flow Rate FiO2 04/08/24 08:55 98.1 90 16 136/76 (96) 97 98.1 04/07/24 20:00 Room Air* 0 21 Total Intake and Output 04/07/24 04/07/24 04/08/24 15:00 23:00 07:00 Intake Total 950 ml 400 ml Output Total 0 ml Balance 950 ml 400 ml medications Current Medications Medications Dose Ordered Sig/Gianna Route Start Time Stop Time Status Last Admin Dose Admin Sodium Chloride 10 ml Q8HR IV 03/24/24 22:00 04/07/24 21:31 10 ML Acetaminophen 650 mg Q6HP PRN PO 03/24/24 21:00 04/05/24 14:05 650 MG Melatonin 5 mg HS PO 03/28/24 00:04 04/07/24 21:30 5 MG Mycophenolate Mofetil 500 mg BID PO 03/28/24 22:00 04/08/24 08:02 500 MG Calcium Acetate 2,001 mg TIDWMEALS PO 03/28/24 18:00 04/08/24 08:00 2,001 MG Ondansetron HCl 4 mg Q6HPRN PRN IV 03/28/24 16:15 04/06/24 23:19 4 MG Lidocaine HCl 2 ml Q8HPRN PRN TOP 03/28/24 17:45 Hydralazine HCl 5 mg Q6HP PRN IV 03/31/24 08:45 04/07/24 17:57 5 MG Calcitriol 0.5 mcg DAILY PO 03/31/24 11:45 04/08/24 08:01 0.5 MCG Ergocalciferol 50,000 unit Q7D PO 03/31/24 11:45 04/07/24 08:16 50,000 UNIT Polyethylene Glycol 17 gm DAILYPRN PRN PO 03/31/24 16:45 04/07/24 21:30 17 GM Lorazepam 0.5 mg Q6HP PRN IV 04/01/24 17:30 04/05/24 00:06 0.5 MG Morphine Sulfate 2 mg Q6HPRN PRN IV 04/05/24 16:00 04/07/24 17:56 2 MG Prednisone 40 mg BID PO 04/07/24 22:00 04/08/24 08:01 40 MG Examination: GENERAL:Normal, HEENT:Normal, NECK:Normal, CVS:Normal laboratory and microbiology Laboratory Tests 04/07/24 10:45 Test 04/07/24 10:45 Range/Units Serum Glucose 120 H 74-106 mg/dL Microbiology Date/Time Source Procedure Growth Status 03/25/24 04:00 Blood Blood Culture - Final NO GROWTH AFTER 5 DAYS OF INCUBATION. Complete 03/24/24 20:56 Voided Urine Urine Culture - Final Enterococcus faecalis Complete Problem List/Assessment/Plan Problem List/Assessment/Plan Acute kidney injury likely due to acute GN baseline renal function is unknown Acute pancreatitis Positive MADI, low C3 and low for C4 consistent with lupus nephritis History of gouty nephropathy Severe anemia status post packed red blood cell transfusion NSTEMI Hyperphosphatemia Hypocalcemia due to hyperphosphatemia Nephrotic range proteinuria Status post tunneled hemodialysis catheter Hemodialysis today Epogen [address] IV post hemodialysis Calcium acetate 2001 mg p.o. t.i.d. with meals s/p loading steroids now on po mycophenolate 500 mg p.o. b.i.d. Rheumatology consult Renal diet will start outpatient dialysis on friday Plan discussed with: Patient My Orders My Orders Orders - KOMAL VINES MD Procedure Category Date Status Time Hemodialysis Orders ORDERS 04/08/24 Transmitted 07:00 Dialysis Nursing DEAN 04/08/24 In Process Message 07:00 Document Fluid Input DEAN 04/08/24 In Process And Outpu 07:00 Epoetin Shabbir-Epbx PHA 04/08/24 In Process (Retacrit) 21:00 CC Plasma Assessment Blood Product Administration S: 0630 KOMAL VINES MD Apr 08, 2024 09:20
[2024-04-08 10:45] LABS: Anion Gap 9 (5-15); Carbon Dioxide 26 mmol/L (20-31)
[2024-04-08 10:47] LABS: Chloride 94 mmol/L (98-107); Potassium 5.5 mmol/L (3.5-5.1); Sodium 129 mmol/L (136-145)
[2024-04-08 10:51] LABS: BUN/Creatinine Ratio 8.4 (10.0-20.0)
[2024-04-08 10:52] LABS: Magnesium 1.8 mg/dL (1.6-2.6)
[2024-04-08 10:53] LABS: Phosphorus 3.2 mg/dL (2.4-5.1)
[2024-04-08 10:56] LABS: Hemoglobin 7.7 g/dL (12.2-16.2)
[2024-04-08 10:58] LABS: Hematocrit 22.8 % (36.0-46.0); Mean Corpuscular Hemoglobin 29.6 pg (28.0-32.0); Mean Corpuscular Hgb Conc. 33.6 g/dL (32.0-36.0); Mean Corpuscular Volume 88.1 fL (80.0-100.0); Platelet Count (auto) 285 10^3/uL (140-450); Red Blood Cells 2.58 10^6/uL (4.0-5.20); Red Cell Distribution Width 15.4 % (11.8-14.3); White Blood Cell 10.7 10^3/uL (4.4-10.8)
[2024-04-08 11:03] LABS: Blood Urea Nitrogen 51 mg/dL (9-23); Glucose 144 mg/dL (74-106)
[2024-04-08 11:06] LABS: Band Neutrophils % (manual) 0; Basophils % (manual) 0 (0.0-2.0); Blast Cells 0; Eosinophils % (manual) 0 (0-7); Metamyelocytes % 0; Myelocytes % 0; Promyelocytes % 0; Reactive Lymphocytes 0
[2024-04-08 12:00] LABS: Lymphocytes % (manual) 3 (10.0-50.0); Monocytes % (manual) 5 (0-12); Platelet Estimate Adequate
[2024-04-08] MEDS: SODIUM ZIRCONIUM CYCL 10 GM PAK PO ONE (12:00)
--- NOTE | 2024-04-08 19:25 | DVHPNRES ---
Progress Note Date Seen: Apr 08, 2024 Resident Creating Document: JOSÉ BELTRAN RESIDENT Medical Necessity Reason Pt with a Central, PICC or Fol: No The following are medically ne: Castellon Catheter Subjective Review of Systems pt seen and examined at bedside, mentioning of mild improvement in her symptoms She had Dialysis today, had tachycardia and hypertension during the dialysis Objective vital signs Vital Sign Date Time Temp Pulse Resp B/P (MAP) Pulse Ox O2 Delivery O2 Flow Rate FiO2 04/08/24 18:06 174/89 04/08/24 18:06 115 04/08/24 17:00 97.9 18 99 97.9 04/08/24 08:00 Room Air* 0 21 Total Intake and Output 04/07/24 04/07/24 04/08/24 15:00 23:00 07:00 Intake Total 950 ml 400 ml Output Total 0 ml Balance 950 ml 400 ml medications Current Medications Medications Dose Ordered Sig/Gianna Route Start Time Stop Time Status Last Admin Dose Admin Sodium Chloride 10 ml Q8HR IV 03/24/24 22:00 04/08/24 11:23 10 ML Acetaminophen 650 mg Q6HP PRN PO 03/24/24 21:00 04/05/24 14:05 650 MG Melatonin 5 mg HS PO 03/28/24 00:04 04/07/24 21:30 5 MG Mycophenolate Mofetil 500 mg BID PO 03/28/24 22:00 04/08/24 08:02 500 MG Calcium Acetate 2,001 mg TIDWMEALS PO 03/28/24 18:00 04/08/24 18:11 2,001 MG Ondansetron HCl 4 mg Q6HPRN PRN IV 03/28/24 16:15 04/06/24 23:19 4 MG Lidocaine HCl 2 ml Q8HPRN PRN TOP 03/28/24 17:45 Hydralazine HCl 5 mg Q6HP PRN IV 03/31/24 08:45 04/08/24 18:06 5 MG Calcitriol 0.5 mcg DAILY PO 03/31/24 11:45 04/08/24 08:01 0.5 MCG Ergocalciferol 50,000 unit Q7D PO 03/31/24 11:45 04/07/24 08:16 50,000 UNIT Polyethylene Glycol 17 gm DAILYPRN PRN PO 03/31/24 16:45 1/1/25 21:30 17 GM Lorazepam 0.5 mg Q6HP PRN IV 04/01/24 17:30 04/05/24 00:06 0.5 MG Morphine Sulfate 2 mg Q6HPRN PRN IV 04/05/24 16:00 04/07/24 17:56 2 MG Prednisone 40 mg BID PO 04/07/24 22:00 04/08/24 08:01 40 MG Zirconium Oxide 10 gm TID PO 04/08/24 22:00 04/10/24 14:01 Examination Examination General Appearance: Alert, Oriented X3, Cooperative, No acute distress HEENT: EOMI Respiratory: Clear to auscultation, Normal air movement Cardiovascular: Regular rate, Normal S1, Normal S2, tunneled subclavian catheter present on the right side Abdominal: Normal bowel sounds Extremities: Bilateral lower leg pain, No cyanosis, No edema, Normal pulses, No tenderness/swelling, ankle tenderness, hand PIP and DIP tenderness multiple joints Skin: No rashes, No breakdown Neuro: Normal speech and tone laboratory and microbiology Laboratory Tests 04/08/24 09:22 Test 04/08/24 09:22 Range/Units Serum Glucose 144 H 74-106 mg/dL Microbiology Date/Time Source Procedure Growth Status 03/25/24 04:00 Blood Blood Culture - Final NO GROWTH AFTER 5 DAYS OF INCUBATION. Complete 03/24/24 20:56 Voided Urine Urine Culture - Final Enterococcus faecalis Complete Problem List/Assessment/Plan Problem List/Assessment/Plan Assessment/plan Neurology Cardiology # NSTEMI type 2 -likely due to MATIAS on CKD -EKG for monitoring #Superficial venous thrombosis -warm compresses Respiratory # Acute hypoxic respiratory failure likely in the setting of severe anemia, volume overload/pulmonary congestion/questionable pneumonia, improving Currently on room air -IV Lasix 100 mg b.i.d, discontinued #?Questionable pneumonia, comminuted required, Gram-positive/Gram-negative -IV ceftriaxone plus IV doxycycline, switched to Augmentin, later was discontinued -sputum culture MRSA screen Hematology # Severe Anemia requiring blood transfusion, normocytic anemia, possibly due to anemia of chronic disease due to CKD, ?GI bleed -transfused with 4 units of PRBC -CBC in the a.m. 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 b.i.d. received dialysis today # hyperkalemia likely due to MATIAS Corrected # anion gap and non-anion gap metabolic acidosis with compensated respiratory alkalosis likely due to uremic MATIAS -repeat BMP in the morning # hypomagnesemia -slow correction in the setting of MATIAS # hypocalcemia the setting of CKD, dialysis -monitor BMP - discontinued sevelamer, started calcium acetate 2100 mg t.i.d. with meals by orange peel operator # hyperphosphatemia likely in the setting of CKD -monitor Infectious disease #?Sepsis likely due to questionable pneumonia -judicious use of IV fluids -panculture -IV meropenem, discontinued #UTI -urine culture -on antibiotics GI #?GI bleed -IV Protonix 40mg BID, switched to pantoprazole oral -FOBT Endocrine Rheumatology #Gout -not in active flare #multiple joint pain, likely SLE flare up -Prednisone 40mg BID Lines peripheral IV Line Drips Code status discussed with the patient for >21 min, FULL CODE Nutrition Renal diet DVT prophylaxis SCD's currently on hold because of severe anemia technology services manager consulted for arranging outpatient dialysis chair time DC planning within next 24-48 hrs downgraded to med/surg Case discussion with DR Riddle Plan discussed with: Patient, Other My Orders My Orders Orders - JOÉS BELTRAN Procedure Category Date Status Time Sodium Zirconium PHA 04/08/24 In Process Cyclosilicate 22:00 * Restaurant Bartender CONS 04/08/24 Transmitted Consult Discharge DISCHARGE 04/08/24 Transmitted 15:56 Schedule For Dc DEAN 04/08/24 In Process Clinic F/U 15:56 CC Plasma Assessment Blood Product Administration S: 0630 Date of Service: Apr 08, 2024 Billing Provider: JEROMY RIDDLE MD Common Visit Codes: [id number] INP/OBS CARE(HIGH) JOSÉ BELTRAN Apr 08, 2024 19:25 JEROMY RIDDLE MD Apr 12, 2024 14:29
[2024-04-08] MEDS: EPOETIN ALFA-EPBX 10,000 UNIT/1ML VIAL SC ONE (21:35)
[2024-04-08] MEDS: SODIUM ZIRCONIUM CYCL 10 GM PAK PO SCH (21:36)
[2024-04-09 01:00] VITALS: BP 155/82; PULSE 101; RESP 18; TEMP 98.3; O2SAT 94
[2024-04-09 07:21] LABS: Anion Gap 4 (5-15); Carbon Dioxide 29 mmol/L (20-31); Chloride 100 mmol/L (98-107); Hematocrit 22.7 % (36.0-46.0); Hemoglobin 7.5 g/dL (12.2-16.2); Mean Corpuscular Hemoglobin 29.2 pg (28.0-32.0)
[2024-04-09 07:22] LABS: Calcium 8.9 mg/dL (8.7-10.4)
[2024-04-09 07:24] LABS: Mean Corpuscular Hgb Conc. 33.2 g/dL (32.0-36.0); Mean Corpuscular Volume 87.7 fL (80.0-100.0); Platelet Count (auto) 279 10^3/uL (140-450); Red Blood Cells 2.59 10^6/uL (4.0-5.20); Red Cell Distribution Width 15.4 % (11.8-14.3); White Blood Cell 8.9 10^3/uL (4.4-10.8)
[2024-04-09 07:27] LABS: BUN/Creatinine Ratio 7.7 (10.0-20.0); Magnesium 1.9 mg/dL (1.6-2.6)
[2024-04-09 07:28] LABS: Blood Urea Nitrogen 35 mg/dL (9-23); Glucose 108 mg/dL (74-106); Sodium 133 mmol/L (136-145)
[2024-04-09 07:30] LABS: Band Neutrophils % (manual) 0; Basophils % (manual) 0 (0.0-2.0); Blast Cells 0; Eosinophils % (manual) 0 (0-7); Metamyelocytes % 0; Myelocytes % 0; Promyelocytes % 0; Reactive Lymphocytes 0
[2024-04-09 08:00] VITALS: RESP 17; O2SAT 95
[2024-04-09 09:00] VITALS: BP 160/96; PULSE 129; RESP 17; TEMP 97.9; O2SAT 95
[2024-04-09 11:47] LABS: Lymphocytes % (manual) 6 (10.0-50.0); Monocytes % (manual) 7 (0-12)
[2024-04-09 11:48] LABS: Platelet Estimate Adequate
[2024-04-09] MEDS: NIFEdipine ER 30 MG TAB PO ONE (12:12)
--- NOTE | 2024-04-09 12:54 | DVHPN2 ---
Progress Note Date Seen: Apr 09, 2024 Medical Necessity Reason Pt with a Central, PICC or Fol: No The following are medically ne: Castellon Catheter Subjective Patient reports: No new complaints Objective vital signs Vital Sign Date Time Temp Pulse Resp B/P (MAP) Pulse Ox O2 Delivery O2 Flow Rate FiO2 04/09/24 12:12 161/97 04/09/24 09:00 97.9 129 17 95 97.9 04/09/24 08:00 Room Air* 0 21 Total Intake and Output 04/08/24 04/08/24 04/09/24 15:00 23:00 07:00 Intake Total 600 ml Balance 600 ml medications Current Medications Medications Dose Ordered Sig/Gianna Route Start Time Stop Time Status Last Admin Dose Admin Sodium Chloride 10 ml Q8HR IV 03/24/24 22:00 04/09/24 05:50 10 ML Acetaminophen 650 mg Q6HP PRN PO 03/24/24 21:00 04/05/24 14:05 650 MG Melatonin 5 mg HS PO 03/28/24 00:04 04/08/24 21:34 5 MG Mycophenolate Mofetil 500 mg BID PO 03/28/24 22:00 04/09/24 10:52 500 MG Calcium Acetate 2,001 mg TIDWMEALS PO 03/28/24 18:00 04/09/24 12:12 2,001 MG Ondansetron HCl 4 mg Q6HPRN PRN IV 03/28/24 16:15 04/06/24 23:19 4 MG Lidocaine HCl 2 ml Q8HPRN PRN TOP 03/28/24 17:45 Calcitriol 0.5 mcg DAILY PO 03/31/24 11:45 04/09/24 10:08 0.5 MCG Ergocalciferol 50,000 unit Q7D PO 03/31/24 11:45 04/07/24 08:16 50,000 UNIT Polyethylene Glycol 17 gm DAILYPRN PRN PO 03/31/24 16:45 04/07/24 21:30 17 GM Lorazepam 0.5 mg Q6HP PRN IV 04/01/24 17:30 04/05/24 00:06 0.5 MG Morphine Sulfate 2 mg Q6HPRN PRN IV 04/05/24 16:00 04/09/24 05:50 2 MG Prednisone 40 mg BID PO 04/07/24 22:00 04/09/24 09:55 40 MG Zirconium Oxide 10 gm TID PO 04/08/24 22:00 04/10/24 14:01 04/09/24 06:58 10 GM Nifedipine 30 mg DAILY PO 04/10/24 10:00 Examination: GENERAL:Normal, CVS:Normal, ABDOMEN:Normal, SKIN:Abnormal laboratory and microbiology Laboratory Tests 04/09/24 06:34 Test 04/09/24 06:34 Range/Units Serum Glucose 108 H 74-106 mg/dL Microbiology Date/Time Source Procedure Growth Status 03/25/24 04:00 Blood Blood Culture - Final NO GROWTH AFTER 5 DAYS OF INCUBATION. Complete 03/24/24 20:56 Voided Urine Urine Culture - Final Enterococcus faecalis Complete Problem List/Assessment/Plan Problem List/Assessment/Plan Acute kidney injury likely due to acute GN baseline renal function is unknown Acute pancreatitis Positive MADI, low C3 and low for C4 consistent with lupus nephritis History of gouty nephropathy Severe anemia status post packed red blood cell transfusion NSTEMI Hyperphosphatemia Hypocalcemia due to hyperphosphatemia Nephrotic range proteinuria Status post tunneled hemodialysis catheter Epogen 86951 IV post hemodialysis Calcium acetate 2001 mg p.o. t.i.d. with meals s/p loading steroids now on po mycophenolate 500 mg p.o. b.i.d. Rheumatology consult Renal diet will start outpatient dialysis on friday , discharge for treatment if patient is stable Plan discussed with: Patient CC Plasma Assessment Blood Product Administration S: 0630 KOMAL VINES MD Apr 09, 2024 12:54
[2024-04-09 13:00] VITALS: BP 135/80; PULSE 104; RESP 18; TEMP 98.6; O2SAT 99
[2024-04-09] MEDS ORDERED: PRED20TA2 PO (13:24)
[2024-04-09] MEDS ORDERED: METO25TA5 PO (13:24)
[2024-04-09] MEDS ORDERED: CAL025T PO (13:24)
[2024-04-09] MEDS ORDERED: NIFE1TAB31 PO (13:24)
[2024-04-09] MEDS ORDERED: MYCO500T3 PO (13:24)
[2024-04-09] MEDS ORDERED: MET25T PO (13:26)
[2024-04-09] MEDS ORDERED: CALC667C PO (13:44)
[2024-04-09] MEDS: METOPROLOL TARTRATE 25 MG TAB PO ONE (14:02)
[2024-04-09 14:36] VITALS: BP 141/73; PULSE 84; RESP 19; TEMP 97.5; O2SAT 95
[2024-04-09 14:41] VITALS: BP 141/74; PULSE 94; TEMP 37
[2024-04-09] MEDS ORDERED: PANT40T PO (14:48)
--- NOTE | 2024-04-09 15:01 | DVHDSRES ---
Discharge Summary Date of Admission Resident Creating Document: JOSÉ BELTRAN RESIDENT Mar 24, 2024 at 20:59 Date of Discharge: Apr 09, 2024 Admitting Diagnosis Epigastric pain and throat pain Labs/Diagnostic Data: Laboratory Results Test 04/09/24 06:34 04/08/24 09:22 04/07/24 10:45 03/28/24 04:34 White Blood Count 8.9 10^3/uL (4.4-10.8) Red Blood Count 2.59 10^6/uL (4.0-5.20) Hemoglobin 7.5 g/dL (12.2-16.2) Hematocrit 22.7 % (36.0-46.0) Mean Corpuscular Volume 87.7 fL (80.0-100.0) Mean Corpuscular Hemoglobin 29.2 pg (28.0-32.0) Mean Corpuscular Hemoglobin Concent 33.2 g/dL (32.0-36.0) Red Cell Distribution Width 15.4 % (11.8-14.3) Platelet Count 279 10^3/uL (140-450) Mean Platelet Volume 7.1 fL (6.9-10.8) Neutrophils (%) (Auto) % (37.0-80.0) Lymphocytes (%) (Auto) % (10.0-50.0) Monocytes (%) (Auto) % (0.0-12.0) Basophils (%) (Auto) % (0.0-2.0) Neutrophils # (Auto) 10 ^3/uL (1.6-8.6) Lymphocytes # (Auto) 10 ^3/uL (0.4-5.4) Monocytes # (Auto) 10 ^3/uL (0-1.3) Differential Total Cells Counted 100.0 (100) Neutrophils % (Manual) 87 (37.0-80.0) Band Neutrophils % (Manual) 0 Lymphocytes % (Manual) 6 (10.0-50.0) Monocytes % (Manual) 7 (0-12) Eosinophils % (Manual) 0 (0-7) Basophils % (Manual) 0 (0.0-2.0) Metamyelocytes % (manual) 0 Myelocytes % (Manual) 0 Promyelocytes % (Manual) 0 Blast Cells % (Manual) 0 Reactive Lymphocytes 0 Platelet Estimate Adequate Sodium Level 133 mmol/L (136-145) Potassium Level 5.0 mmol/L (3.5-5.1) Chloride Level 100 mmol/L (98-107) Carbon Dioxide Level 29 mmol/L (20-31) Anion Gap 4 (5-15) Blood Urea Nitrogen 35 mg/dL (9-23) Creatinine 4.55 mg/dL (0.550-1.02) Glomerular Filtration Rate Calc 11 mL/min (>90) BUN/Creatinine Ratio 7.7 (10.0-20.0) Serum Glucose 108 mg/dL (74-106) Calcium Level 8.9 mg/dL (8.7-10.4) Magnesium Level 1.9 mg/dL (1.6-2.6) Phosphorus Level 3.2 mg/dL (2.4-5.1) Eosinophils (%) (Auto) 2.0 % (0.0-7.0) Eosinophils # (Auto) 0.2 10 ^3/uL (0-0.8) Basophils # (Auto) 0 10 ^3/uL (0-0.2) Nucleated Red Blood Cells 0.1 % Total Bilirubin 0.2 mg/dL (0.2-1.0) Aspartate Amino Transferase (AST) 23 U/L (13-40) Alanine Aminotransferase (ALT) < 9 U/L (7-40) Alkaline Phosphatase 56 U/L (46-116) Total Protein 5.8 g/dL (5.7-8.2) Albumin 2.6 g/dL (3.2-4.8) Test 03/26/24 18:12 03/25/24 13:20 03/25/24 09:23 03/25/24 07:00 Prothrombin Time Diluted 35.8 sec (0.0-47.6) Dilute PT Confirmation Ratio 1.09 Ratio (0.00-1.34) Thrombin Time 17.5 sec (0.0-23.0) Lupus Anticoagulant PTT 35.2 sec (0.0-43.5) Dilute Vinny Viper Venom (Lupus) 45.7 sec (0.0-47.0) Lupus Anticoagulant Interpretation Comment: (.) Creatine Kinase 566 U/L (34-145) Hepatitis B Surface Antigen Negative (Negative) Hepatitis C Antibody Negative (Negative) Blood Gas Specimen Type Arterial Blood Gas Sample Site Right radial Blood Gas Patient Temperature 37.0 Arterial Blood Date Drawn [id number] Arterial Blood pH 7.313 (7.350-7.450) Arterial Blood Partial Pressure CO2 24.8 mmHg (32.0-45.0) Arterial Blood Partial Pressure O2 94.1 mmHg (83.0-108.0) Arterial Blood HCO3 12.3 mmol/L (21.0-28.0) Arterial Blood Oxygen Saturation 96.4 % (94.0-98.0) Arterial Blood Base Excess -12.7 mmol/L (-2.0-3.0) Arterial Blood Oxyhemoglobin 94.1 % (94.0-98.0) Arterial Blood Carboxyhemoglobin 1.5 % (0.5-1.5) Arterial Blood Methemoglobin 0.9 % (0.0-1.5) Tito Test Yes Blood Gas Total Hemoglobin 6.70 g/dL (12.0-16.0) Blood Gas Liter Flow 2.00 Blood Gas Modality Nasal cannula FiO2 % 28.0 Blood Gas Critical Value Read Back yes Blood Gas Notified Whom Dr. winslow Blood Gas Notified Time [id number] Blood Gas Notified By Influenza Type A Antigen Negative (Negative) Influenza Type B Antigen Negative (Negative) Troponin I High Sensitivity 75 ng/L (</=34) Test 03/25/24 04:00 03/24/24 20:56 03/24/24 17:03 03/24/24 16:20 Reticulocyte Count (auto) 3.23 % (0.5-1.5) Haptoglobin 188 mg/dL (33-346) Prothrombin Time 12.9 sec (9.3-11.8) Prothrombin Time INR 1.24 (0.9-1.15) Activated Partial Thromboplast Time 26.0 SEC (24.5-34.5) Serum Immunoglobulin G 1682 mg/dL (586-1602) Hemoglobin A1c < 3.8 % A1C (<5.7) Lactic Acid Level 0.7 mmol/L (0.4-2.0) Uric Acid 7.4 mg/dL (3.1-7.8) Iron Level 17 ug/dL (50-170) Total Iron Binding Capacity 201 ug/dL (250-425) Percent Iron Saturation 8.5 % (15-50) Ferritin 231.5 ng/mL (10-291) Lactate Dehydrogenase 421 U/L (120-246) B-Type Natriuretic Peptide 599.68 pg/mL (0-100) Triglycerides Level 92 mg/dL (< 150) Cholesterol Level 125 mg/dL (< 200) LDL Cholesterol 79 mg/dL (< 100) HDL Cholesterol 25 mg/dL (40-59) Vitamin B12 Level 739 pg/mL (211-911) Folic Acid 9.53 ng/mL (>5.38) Thyroid Stimulating Hormone (TSH) 1.98 uIU/mL (0.55-4.78) Parathyroid Hormone (Intact) 1329.1 pg/mL (18.4-80.1) Immunoglobulin A 411 mg/dL (87-352) Immunoglobulin M 84 mg/dL (26-217) Serum Immunofixation Comment (.) Anti-Nuclear Antibody Screen Positive (Negative) Cytoplasmic ANCA (c-ANCA) Antibody <1:20 titer (Neg:<1:20) Anti-Proteinase 3 (c-ANCA) <0.2 units (0.0-0.9) Atypical p-ANCA <1:20 titer (Neg:<1:20) Perinuclear ANCA (p-ANCA) Antibody 1:640 titer (Neg:<1:20) Myeloperoxidase Antibody >8.0 units (0.0-0.9) Anti-Glomerular Basement Memb Ab <0.2 units (0.0-0.9) Complement C3 74 mg/dL (82-167) Complement C4 9 mg/dL (12-38) Free [place] Light Chains, Quant 325.1 mg/L (3.3-19.4) Free [place]/Lambda Light Chain Ratio 1.07 (0.26-1.65) Hepatitis A Antibody Total Positive (Negative) Hepatitis B Surface Antibody Negative (Negative) Hepatitis B Core Total Antibody Negative (Negative) HIV (1&2) Antibody Negative (Negative) Urine Color Colorless (Yellow) Urine Clarity Turbid (Clear) Urine pH 6.0 (5.0-9.0) Urine Specific [place] 1.012 (1.001-1.035) Urine Protein 3+ (Negative) Urine Ketones Negative (Negative) Urine Blood 3+ /uL (Negative) Urine Nitrite Negative (Negative) Urine Bilirubin Negative (Negative) Urine Urobilinogen Normal mg/dL (Negative) Urine Leukocyte Esterase Trace /uL (Negative) Urine RBC 134 /hpf (0 - 4) Urine WBC 11 /hpf (0 - 5) Urine Squamous Epithelial Cells Few /hpf (<5) Urine Amorphous Crystals Few /hpf (None Seen) Urine Bacteria Few /hpf (None Seen) Urine Creatinine 67.89 mg/dL (30.0-125.0) Urine Sodium 19 mmol/L (40-220) Urine Glucose 1+ mg/dL (Normal) Urine Total Protein 355.3 mg/dL (1-14) Urine Opiates Screen Neg (NEGATIVE) Urine Fentanyl Screen Neg (NEGATIVE) Urine Barbiturates Screen Neg (NEGATIVE) Urine Phencyclidine Screen Neg (NEGATIVE) Urine Amphetamines Screen Neg (NEGATIVE) Urine Benzodiazepines Screen Neg (NEGATIVE) Urine Cocaine Screen Neg (NEGATIVE) Urine Cannabinoids Screen Neg (NEGATIVE) SARS-CoV-2 Antigen (Rapid) Negative (NEGATIVE) Lipase 103 U/L (12-53) Other Laboratory Tests 04/09/24 06:34 Brief Hx & Hospital Course: 53-year-old female patient with past medical history of gout, presented with complaints of epigastric pain and throat pain for two days before presenting with a hospital. The patient lives in [facility] in [facility] and came to [place] one month ago as a visitor blood work was in November which was normal. On admission the patient hemoglobin was 4.2. patient was transfused with 4 units of PRBC in the hospital. Patient was on MATIAS for which extension service specialist was consulted, patient underwent tunneled dialysis catheter and later was started on dialysis. Patient had positive MADI, low C3 and C4 concerning for lupus nephritis. No rheumatology was consulted. Patient had kidney biopsy. Patient was started on IV methylprednisolone initially which was later discontinued by the extension service specialist. He was also started on mycophenolate mofetil 500 mg p.o. b.i.d. patient had elevated troponins likely due to NSTEMI type 2 because of MATIAS and CKD. EKG did not show any acute significant changes. Patient's hyperkalemia was corrected. Labs showed hypomagnesemia which was corrected. Patient was also started on IV antibiotics for possible sepsis and personal pneumonia which was later switched to Augmentin and later discontinued. Urine showed evidence of UTI considering did not Enterococcus faecalis, for which patient was started on Augmentin which was later discontinued. For possible GI bleed initially patient was started on IV Protonix b.i.d. which was later switched to pantoprazole Oral. Patient was initially on oxygen but later improved to room air. Patient mentioned improvement in her symptoms. Later in the hospital patient started having pain in multiple joints after which prednisone was started and patient mentioned improvement in her symptoms. She received dialysis multiple times in the hospital. marine services technician was consulted for arrangement of outpatient dialysis chair time. At the time of discharge, patient had stable vitals, no new complaints. Discharge plan was discussed with the patient and patient was advised to follow up with PCP/DC clinic within one week, outpatient dialysis on April 10 and extension service specialist within 1-2 weeks. Patient was prescribed on pantoprazole, 125 dihydroxy cholecalciferol, calcium as needed, metoprolol tartrate, mycophenolate mofetil, nifedipine, prednisone. Examination on the day of discharge General Appearance: Alert, Oriented X3, Cooperative, No acute distress Respiratory: Clear to auscultation, Normal air movement Cardiovascular: Regular rate, Normal S1, Normal S2 Abdominal: Normal bowel sounds Extremities: Bilateral lower leg swelling, improving Skin: No rashes, No breakdown Neuro: Speech and tone Discussed with Dr. Raya Consults/Reason for consult nephrology consult for MATIAS Rheumatology consult for SLE Operations or Procedures ORDERING PHYSICIAN: AAMIR VEE RESIDENT PROCEDURE(s): INVENCAT - Insertion of Venous Cath REASON: HD CATH ORDER NUMBER(s): [id number], ACCESSION NUMBER(s): [id number] Insertion of Venous Cath, HISTORY: HD CATH PROCEDURE: Informed consent was obtained. The patient was placed supine on the interventional table. 1 gram of Ancef was given. A limited localization ultrasound of the right neck base was obtained. The right neck base and upper chest were prepped with chlorhexidine which was allowed to dry and draped in the usual sterile fashion. Time out was performed. IV sedation was administered. The skin and the soft tissues were infiltrated with 1% Lidocaine . With real-time ultrasound guidance, the internal jugular vein was accessed with a micropuncture kit, and an image documenting patency was recorded to PACS. A subcutaneous tunneled tract was created from the right upper chest to the venotomy site. A 14.5 [place] [address], 19 cm long hemodialysis catheter was advanced through the tunneled tract. Fluoroscopy was used to advance a guidewire through the internal jugular vein into the inferior vena cava. Following serial dilatation, a 15 British peel-away sheath was introduced, though which was advanced the catheter into the right atrium. The catheter tip position was confirmed with fluoroscopy. There was satisfactory flow in both lumens. The catheter lumens were flushed with saline and heparin was left indwelling in the catheter. A post-procedure image of the chest was obtained. The neck incision site was closed with Dermabond and dressed sterilely. The catheter was sutured at the skin surface and exit site also dressed sterilely. No immediate complication was identified. DAP 71.83 FLUOROSCOPY TIME: 0.9 minutes. SEDATION: Dr. Margie Gandara was personally responsible for the administration of moderate sedation during the procedure performed, including the use of an independent trained observer who had no other duties during the procedure. The drugs utilized were IV fentanyl and versed (see nursing log for details). The total time of supervision by the attending physician was approximately 30 minutes. FINDINGS: Widely patent right IJV. Post procedure image demonstrates smooth course of the hemodialysis catheter with the tip in the right atrium. IMPRESSION: Successful placement of 14.5 [place] [address], 19 cm long hemodialysis catheter through right internal jugular vein. Plan: Please contact IR for removal when no longer needed. ATED BY: RAMON GANDARA MD DICTATED DATE/TIME: 03/26/24 112 SIGNED BY: RAMON GANDARA MD SIGNED DATE/TIME: 03/26/24 112 Condition at Discharge: Stable Final Diagnosis/Problems List MATIAS s/p dialysis possible lupus nephritis SLE flare up Severe anemia NSTEMI type 2 Superficial venous thrombosis Acute hypoxic respiratory failure likely in the setting of severe anemia, volume overload, pulmonary congestion, questionable pneumonia Questionable pneumonia, community-acquired, Gram-positive/Gram-negative Severe anemia requiring blood transfusion, normocytic anemia possibly due to anemia of chronic disease due to CKD, questionable GI bleed MATIAS over CKD, questionable lupus nephritis Hypokalemia likely due to MATIAS Anion gap and non-anion gap metabolic acidosis with compensatory respiratory alkalosis likely due to uremia, improved Hypomagnesemia Hypocalcemia in the setting of CKD Hyperphosphatemia likely in the setting of CKD Questionable sepsis due to questionable pneumonia UTI Questionable GI bleed Gout SLE arthritis, flare-up Discharge Disposition: Home Discharge Instruct/Medications Diet: Renal Activity: Light activity Follow Up/Referral: f/u with DC clinic within 1 week f/u with extension service specialist and hand funnel coater within 1-2 weeks Medications: script sent to pharmacy for pantoprazole, 125 dihydroxy cholecalciferol, calcium as needed, metoprolol tartrate, mycophenolate mofetil, nifedipine, prednisone. Discharge Statement: "Patient was advised to return to the ER or call 911 if any headaches, dizziness, shortness of breath, chest pain, abdominal pain, bleeding, fevers, or worsening of medical condition. Patient was counseled about treatment plan, medications, possible side effects, patientverbalized understanding. All questions were answered to the best of my ability. This discharge took greater then 30 minutes in planning, reviewing documentation, counseling the patient, and discussing with other team members." ASSESSMENT ASSESSMENT Assessment MATIAS s/p dialysis possible lupus nephritis SLE flare up Severe anemia Addendum Addendum Addendum I was physically present for the cody portions of the service provided to patient by THE RESIDENT. I have reviewed the documentation, discussed the case with resident and agree with the resident's documentation except as noted. Also the patient's clinical case was discussed with the patient's nurse. This medical document was created using an electronic medical record system with computerized dictation system. Although this document has been carefully reviewed, there might still be some phonetic and typographical errors. These areas are purely typographical due to imperfections of the software programs, and do not reflect any compromise in the patient's medical care. Late signature. Date of Service: Apr 09, 2024 Billing Provider: NUVIA RAYA MD Common Visit Codes: 65555-YAG/OBS DISCH DAY >30min JOSÉ BELTRAN RESIDENT Apr 09, 2024 15:01 NUVIA RAYA MD Apr 10, 2024 14:01
[2024-04-09] MEDS ORDERED: METOPROLOL TARTRATE 25 MG TAB PO SCH (22:00)
[2024-04-10] MEDS ORDERED: NIFEdipine ER 30 MG TAB PO SCH (10:00)
== END 2024-04-09 15:50 | disposition home or self-care (01) | DRG 720 ==
LOC: ER 15:04 → TELE 20:59 → TELE-WESTW 03-26 14:48 → WEST WING 04-04 19:15
PROVIDERS: ADMIT Internal Medicine; ATTEND Internal Medicine
PROC: 30233N1 Transfusion of Nonautologous Red Blood Cells into Peripheral Vein, Percutaneous Approach (ICD-10-PCS; principal; 2024-03-24)
PROC: 0JH63XZ Insertion of Tunneled Vascular Access Device into Chest Subcutaneous Tissue and Fascia, Percutaneous Approach (ICD-10-PCS; 2024-03-26)
PROC: 02H633Z Insertion of Infusion Device into Right Atrium, Percutaneous Approach (ICD-10-PCS; 2024-03-26)
PROC: B5181ZA Fluoroscopy of Superior Vena Cava using Low Osmolar Contrast, Guidance (ICD-10-PCS; 2024-03-26)
PROC: B548ZZA Ultrasonography of Superior Vena Cava, Guidance (ICD-10-PCS; 2024-03-26)
PROC: 5A1D70Z Performance of Urinary Filtration, Intermittent, Less than 6 Hours Per Day (ICD-10-PCS; 2024-03-27)
PROC: 5A1D70Z Performance of Urinary Filtration, Intermittent, Less than 6 Hours Per Day (ICD-10-PCS; 2024-03-28)
PROC: 5A1D70Z Performance of Urinary Filtration, Intermittent, Less than 6 Hours Per Day (ICD-10-PCS; 2024-03-29)
PROC: 0TB03ZX Excision of Right Kidney, Percutaneous Approach, Diagnostic (ICD-10-PCS; 2024-03-29)
PROC: 5A1D70Z Performance of Urinary Filtration, Intermittent, Less than 6 Hours Per Day (ICD-10-PCS; 2024-03-30)
PROC: 5A1D70Z Performance of Urinary Filtration, Intermittent, Less than 6 Hours Per Day (ICD-10-PCS; 2024-03-31)
PROC: 5A1D70Z Performance of Urinary Filtration, Intermittent, Less than 6 Hours Per Day (ICD-10-PCS; 2024-04-01)
PROC: 5A1D70Z Performance of Urinary Filtration, Intermittent, Less than 6 Hours Per Day (ICD-10-PCS; 2024-04-03)
PROC: 5A1D70Z Performance of Urinary Filtration, Intermittent, Less than 6 Hours Per Day (ICD-10-PCS; 2024-04-05)
PROC: 5A1D70Z Performance of Urinary Filtration, Intermittent, Less than 6 Hours Per Day (ICD-10-PCS; 2024-04-06)
PROC: 5A1D70Z Performance of Urinary Filtration, Intermittent, Less than 6 Hours Per Day (ICD-10-PCS; 2024-04-07)
PROC: 5A1D70Z Performance of Urinary Filtration, Intermittent, Less than 6 Hours Per Day (ICD-10-PCS; 2024-04-08)
DX: A41.59 Other Gram-negative sepsis (principal); J96.01 Acute respiratory failure with hypoxia; J15.69 Pneumonia due to other Gram-negative bacteria; K85.90 Acute pancreatitis without necrosis or infection, unspecified; I21.A1 Myocardial infarction type 2; E87.20 Acidosis, unspecified; E83.51 Hypocalcemia; E83.39 Other disorders of phosphorus metabolism; E87.1 Hypo-osmolality and hyponatremia; D63.1 Anemia in chronic kidney disease; J15.9 Unspecified bacterial pneumonia; N17.9 Acute kidney failure, unspecified; E87.3 Alkalosis; K92.2 Gastrointestinal hemorrhage, unspecified; N18.9 Chronic kidney disease, unspecified; E87.5 Hyperkalemia; E83.42 Hypomagnesemia; M10.9 Gout, unspecified; E87.6 Hypokalemia; N39.0 Urinary tract infection, site not specified; M32.14 Glomerular disease in systemic lupus erythematosus; M32.9 Systemic lupus erythematosus, unspecified; I82.612 Acute embolism and thrombosis of superficial veins of left upper extremity; E87.70 Fluid overload, unspecified; I12.9 Hypertensive chronic kidney disease with stage 1 through stage 4 chronic kidney disease, or unspecified chronic kidney disease; Z82.49 Family history of ischemic heart disease and other diseases of the circulatory system; Z79.899 Other long term (current) drug therapy
CPT/HCPCS: 10005; 36415; 36558; 36600; 71045; 71250; 74150; 74176; 76775; 77001; 77012; 80048; 80053; 80061; 80307; 81001; 82040; 82306; 82550; 82570; 82607; 82728; 82746; 82784; 82805; 83010; 83036; 83520; 83521; 83540; 83550; 83605; 83615; 83690; 83735; 83880; 83970; 84100; 84156; 84300; 84443; 84484; 84550; 85007; 85014; 85018; 85025; 85027; 85045; 85610; 85613; 85670; 85705; 85730; 85732; 86038; 86160; 86256; 86334; 86703; 86704; 86706; 86708; 86803; 86850; 86880; 86885; 86900; 86901; 86920; 87040; 87086; 87088; 87186; 87340; 87426; 87804; 90935; 93005; 93306; 93970; 93971; 94640; 97110; 97163; 99152; 99291; 99292; C1894; G0378; J1642; J1815; J1885; J2185; J2250; J2405; J2470; J3490; J7517

== ENCOUNTER 2024-04-19 14:20 | Emergency (ER) | payer MEDICAID ==
[~2024-04-19] VITALS: Ht 157.5 cm; Wt 80.7 kg
[~2024-04-19 14:20] MED LIST: ALLO300T2 PO; CAL025T PO; CALC667C PO; MET25T PO; MYCO500T3 PO; NIFE1TAB31 PO; PANT40T PO; PRED20TA2 PO
[2024-04-19 14:30] VITALS: O2SAT 97
--- NOTE | 2024-04-19 16:21 | ED.PDOC ---
History of Present Illness HPI Comments 53 y.o female with PMH of ESRD, dialysis Friday, , Friday, anemia, presents to the ED for an evaluation of high blood pressure. Patient reports being at her PCP's office today for follow up, blood pressure was elevated and was sent to the ED for higher level of care. Patient complains of a mild head ache with blurred vision at this time. 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 Patient has not missed any of her dialysis and last session was 2 days ago. Patient denies any bleeding, SOB, chest pain, nausea, vomiting, abdominal pain, leg swe lling, fever, chills. Upon ED arrival today, blood pressure read 191/103. Chief Complaint: High Blood Pressure Time Seen by MD: 15:54 Primary Care Provider: NONE Reviewed Notes: Nurses Notes, Medications, Allergies Allergies: Coded Allergies: NO KNOWN ALLERGIES (Unverified , 03/24/24) Home Meds Active Scripts Pantoprazole Sodium Sesquihydr (Pantoprazole Sodium) 40 Mg Tab, 40 MG PO DAILY for 30 Days, #30 TAB Prov:JOSÉ BELTRAN [facility] 04/09/24 Calcium Acetate (Phosphate Bin (Calcium Acetate) 667 Mg Cap, 667 MG PO TIDWM for 14 Days, #42 CAP WITH MEALS Prov:JOSÉ BELTRAN 04/09/24 Metoprolol Tartrate (Lopressor) 25 Mg Tb, 12.5 MG PO Q12HR for 30 Days, #15 TAB 0 Refills Prov:JOSÉ BELTRAN 04/09/24 Prednisone (Prednisone) 20 Mg Tab, 40 MG PO BID for 30 Days, #120 TAB Prov:JOSÉ BELTRAN 04/09/24 Nifedipine (Nifedipine Er) 30 Mg Tab, 30 MG PO DAILY for 30 Days, #30 TAB Prov:JOSÉ BELTRAN 04/09/24 Mycophenolate Mofetil (Mycophenolate Mofetil) 500 Mg Tab, 500 MG PO BID for 30 Days, #60 TAB Prov:JOSÉ BELTRAN [facility] 04/09/24 1, 25 Dihydroxycholecalciferol (ROCALTROL CAPSULE) 0.25 Mcg Cp, 0.5 MCG PO DAILY for 30 Days, #30 CAP Prov:JOSÉ BELTRAN [facility] 04/09/24 Reported Medications Allopurinol (Allopurinol) 300 Mg Tab, 300 MG PO BID, TAB 04/05/24 Information Source: Patient Mode of Arrival: Wheelchair Severity: Moderate Timing: Hours Duration: Since onset Past Medical History PAST MEDICAL HISTORY: Anemia, CKF, ESRD Past Medical History (Other): 6 blood transfusions Surgical History (Other): port [employer] History: Denies all [employer] Hx Family History Family History: Family hx of HTN Social History Smoker: Non-Smoker Alcohol: Denies ETOH Use Drugs: Denies Drug Use Lives In: Home Constitutional: denies: chills, diaphoresis, fatigue, fever, malaise, sweats, weakness, others EENTM: reports: blurred vision; denies: double vision, ear bleeding, ear discharge, ear drainage, ear pain, ear ringing, eye pain, eye redness, hearing loss, mouth pain, mouth swelling, nasal discharge, nose bleeding, nose congestion, nose pain, photophobia, tearing, throat pain, throat swelling, voice changes, others Respiratory: denies: cough, hemoptysis, orthopnea, SOB at rest, shortness of breath, SOB with excertion, stridor, wheezing, others Cardiovascular: denies: chest pain, dizzy spells, diaphoresis, Dyspnea on exertion, edema, irregular heart beat, left arm pain, lightheadedness, palpitations, PND, syncope, others Gastrointestinal: denies: abdomen distended, abdominal pain, blood streaked bowels, constipated, diarrhea, dysphagia, difficulty swallowing, hematemesis, melena, nausea, poor appetite, poor fluid intake, rectal bleeding, rectal pain, vomiting, others Genitourinary: denies: abnormal vagina bleeding, burning, dyspareunia, dysuria, flank pain, frequency, hematuria, incontinence, pain, , vagina discharge, urgency, others Neurological: reports: headache Musculoskeletal: denies: back pain, gout, joint pain, joint swelling, muscle pain, muscle stiffness, neck pain, others Integumetry: denies: bruises, change in color, change in hair/nails, dryness, laceration, lesions, lumps, rash, wounds, others Allergic/Immunocompromised: denies: Difficulty Healing, Frequent Infections, Hives, Itching, others Hematologic/Lymphatic: denies: anemia, blood clots, easy bleeding, easy bruising, swollen glands, others Endocrine: denies: excessive hunger, excessive sweating, excessive thirst, excessive urination, flushing, intolerance to cold, intolerance to heat, unexplained weight gain, unexplained weight loss, others Psychiatric: denies: anxiety, bipolar disorder, depression, hopeless, panic disorder, schizophrenia, sleepless, suicidal, others All Other Systems: Reviewed and Negative Physical Exam General Appearance: No Apparent Distress, Normal HEENT: Normal ENT Inspection, Pharynx Normal, TMs Normal Neck: Full Range of Motion, Non-Tender, Normal, Normal Inspection Respiratory: Chest Non-Tender, Lungs Clear, No Accessory Muscle Use, No Respiratory Distress, Normal Breath Sounds Cardiovascular: No Edema, No JVD, No Murmur, No Gallop, Normal Peripheral Pulses, Regular Rate/Rhythm Breast Exam: Deferred Gastrointestinal: No Organomegaly, Non Tender, No Pulsatile Mass, Normal Bowel Sounds, Soft Genitalia: Deferred Pelvic: Deferred Rectal: Deferred Extremities: No calf tenderness, Normal capillary refill, Normal inspection, Normal range of motion, Non-tender, No pedal edema Musculoskeletal : Apperance: Normal Neurologic: Alert, merchant tailor II-XII nml as Tested, Headache, No Motor Deficits, Normal Affect, Normal Mood, No Sensory Deficits Cerebellar Function: Normal Reflexes: Normal Skin: Dry, Normal Color, Warm Lymphatic: No Adenopathy Was a procedure done? Was a procedure done?: No Differential Dx Considerations may include: Hypertensive urgency X-Ray, Labs, Meds, VS Vital Signs Date Time Temp Pulse Resp B/P (MAP) Pulse Ox O2 Delivery O2 Flow Rate FiO2 04/19/24 18:55 212/118 04/19/24 18:54 212/118 (149) 04/19/24 18:29 212/118 04/19/24 17:04 213/123 04/19/24 16:59 90 16 Room Air* 0 21 04/19/24 16:58 90 16 213/123 (153) 04/19/24 14:30 98.9 95 16 191/103 (132) 97 Lab Test 04/19/24 17:02 04/19/24 17:00 Range/Units White Blood Count 8.9 4.4-10.8 10^3/uL Red Blood Count 3.56 L 4.0-5.20 10^6/uL Hemoglobin 10.2 L 12.2-16.2 g/dL Hematocrit 31.1 L 36.0-46.0 % Mean Corpuscular Volume 87.3 80.0-100.0 fL Mean Corpuscular Hemoglobin 28.6 28.0-32.0 pg Mean Corpuscular Hemoglobin Concent 32.7 32.0-36.0 g/dL Red Cell Distribution Width 16.5 H 11.8-14.3 % Platelet Count 322 140-450 10^3/uL Mean Platelet Volume 6.5 L 6.9-10.8 fL Neutrophils (%) (Auto) 95.3 H 37.0-80.0 % Lymphocytes (%) (Auto) 2.9 L 10.0-50.0 % Monocytes (%) (Auto) 1.7 0.0-12.0 % Eosinophils (%) (Auto) 0.0 0.0-7.0 % Basophils (%) (Auto) 0.1 0.0-2.0 % Neutrophils # (Auto) 8.4 1.6-8.6 10 ^3/uL Lymphocytes # (Auto) 0.3 L 0.4-5.4 10 ^3/uL Monocytes # (Auto) 0.2 0-1.3 10 ^3/uL Eosinophils # (Auto) 0 0-0.8 10 ^3/uL Basophils # (Auto) 0 0-0.2 10 ^3/uL Nucleated Red Blood Cells 0.0 % Sodium Level 142 136-145 mmol/L Potassium Level 4.9 3.5-5.1 mmol/L Chloride Level 101 98-107 mmol/L Carbon Dioxide Level 32 H 20-31 mmol/L Anion Gap 9 5-15 Blood Urea Nitrogen 58 H 9-23 mg/dL Creatinine 5.33 H 0.550-1.02 mg/dL Glomerular Filtration Rate Calc 9 >90 mL/min BUN/Creatinine Ratio 10.9 10.0-20.0 Serum Glucose 124 H 74-106 mg/dL Calcium Level 9.1 8.7-10.4 mg/dL Total Bilirubin 0.7 0.2-1.0 mg/dL Aspartate Amino Transferase (AST) 22 13-40 U/L Alanine Aminotransferase (ALT) 25 7-40 U/L Alkaline Phosphatase 73 46-116 U/L Troponin I High Sensitivity 16 </=34 ng/L B-Type Natriuretic Peptide 1127.01 0-100 pg/mL Total Protein 6.7 5.7-8.2 g/dL Albumin 3.5 3.2-4.8 g/dL Urine Color Colorless Yellow Urine Clarity Clear Clear Urine pH 8.5 5.0-9.0 Urine Specific Antler 1.015 1.001-1.035 Urine Protein 3+ H Negative Urine Ketones Negative Negative Urine Blood 3+ H Negative /uL Urine Nitrite Negative Negative Urine Bilirubin Negative Negative Urine Urobilinogen Normal Negative mg/dL Urine Leukocyte Esterase Negative Negative /uL Urine RBC 311 0 - 4 /hpf Urine WBC 13 0 - 5 /hpf Urine Squamous Epithelial Cells None seen <5 /hpf Urine Bacteria Few H None Seen /hpf Urine Glucose 2+ H Normal mg/dL Current Medications Medications (Trade) Dose Ordered Sig/Gianna Route Start Time Stop Time Status Last Admin Clonidine HCl (Catapres Tablet) 0.1 mg ONCE ONCE PO 04/19/24 16:15 04/19/24 16:16 DC 04/19/24 17:04 Hydralazine HCl (Apresoline Injection) 10 mg ONCE ONCE IV 04/19/24 18:45 04/19/24 18:51 DC 04/19/24 18:55 X-Ray, Labs, Meds, VS Comment Imaging: X-rays and CT scans were reviewed and interpreted by this provider, imaging shows no fractures and no pathological disease. Pending radiology review. Laboratory: Labs reviewed and interpreted by this provider. No significant abno rmalities noted. Patient has prior medical visits reviewed. Med reconciliation performed Vital signs reviewed Time of 1ST Reevaluation: 16:16 Reevaluation 1ST: Improved Patient Education/Counseling: Diagnosis, Treatment, Prognosis, Need For Follow Up (Follow up with dialysis tomorrow morning. If symptoms worsen come back to the emergency department tonight.) Family Education/Counseling: No Family Present Departure 1 Departure Time of Disposition: 18:59 Impression: Primary Impression: Acute renal failure Qualified Codes: N17.9 - Acute kidney failure, unspecified Additional Impression: Hypertensive urgency Disposition: 01 HOME / SELF CARE / HOMELESS Condition: Fair Discharged With: Self Critical Care Note Critical Care Time?: No Stability Stability form required: No I personally scribed for ELE ADKINS ([facility]) on 04/19/24 at 16:21. Electronically submitted by Hannah Lizama ([facility]). ELE ADKINS Apr 19, 2024 16:21
[2024-04-19 16:59] VITALS: PULSE 90; RESP 16
[2024-04-19] MEDS: cloNIDine HCL 0.1 MG TAB PO ONE (17:04)
[2024-04-19 17:34] LABS: Basophils # (auto) 0 10 ^3/uL (0-0.2); Basophils % (auto) 0.1 % (0.0-2.0); Eosinophils # (auto) 0 10 ^3/uL (0-0.8); Hematocrit 31.1 % (36.0-46.0); Hemoglobin 10.2 g/dL (12.2-16.2); Lymphocytes # (auto) 0.3 10 ^3/uL (0.4-5.4); Lymphocytes % (auto) 2.9 % (10.0-50.0); Mean Corpuscular Hemoglobin 28.6 pg (28.0-32.0); Mean Corpuscular Hgb Conc. 32.7 g/dL (32.0-36.0); Mean Corpuscular Volume 87.3 fL (80.0-100.0); Monocytes # (auto) 0.2 10 ^3/uL (0-1.3); Monocytes % (auto) 1.7 % (0.0-12.0); Neutrophils # (auto) 8.4 10 ^3/uL (1.6-8.6); Neutrophils % (auto) 95.3 % (37.0-80.0); Platelet Count (auto) 322 10^3/uL (140-450); Red Blood Cells 3.56 10^6/uL (4.0-5.20); Red Cell Distribution Width 16.5 % (11.8-14.3); White Blood Cell 8.9 10^3/uL (4.4-10.8)
[2024-04-19 17:39] LABS: Urine Bacteria FEW /hpf (None Seen); Urine Blood 3+ /uL (Negative); Urine Clarity Clear (Clear); Urine Color Colorless (Yellow); Urine Protein, UAD 3+ (Negative); Urine Specific Gravity 1.015 (1.001-1.035); Urine Squamous Epithelial Cell None Seen /hpf (<5); Urine Urobilinogen Normal (Negative); Urine WBC 13 /hpf (0 - 5); Urine pH 8.5 (5.0-9.0)
--- NOTE | 2024-04-19 17:47 | DVH ---
EXAM: XY CHEST XRAY 1 VIEW TECHNIQUE: Single frontal chest radiograph CLINICAL HISTORY: cp COMPARISON: XY CHEST XRAY 1 VIEW on DOS: 04/01/24 Findings/Impression: Frontal chest radiograph demonstrates no acute osseous or superficial soft tissue abnormalities. Tunneled right sided HD catheter terminates near the superior cavoatrial junction. The trachea is midline. The cardiac silhouette and mediastinum are within normal limits. Small left pleural effusion with compressive atelectasis. A superimposed infectious process is not ex cluded. No pneumothorax.
[2024-04-19 17:49] LABS: Alanine Aminotransferase 25 U/L (7-40); Albumin 3.5 g/dL (3.2-4.8); Alkaline Phosphatase 73 U/L (46-116); Anion Gap 9 (5-15); Aspartate Aminotransferase 22 U/L (13-40); BUN/Creatinine Ratio 10.9 (10.0-20.0); Bilirubin, Total 0.7 mg/dL (0.2-1.0); Calcium 9.1 mg/dL (8.7-10.4); Chloride 101 mmol/L (98-107); Potassium 4.9 mmol/L (3.5-5.1); Sodium 142 mmol/L (136-145); Total Protein 6.7 g/dL (5.7-8.2)
[2024-04-19 17:54] LABS: Blood Urea Nitrogen 58 mg/dL (9-23); Carbon Dioxide 32 mmol/L (20-31); Glucose 124 mg/dL (74-106)
[2024-04-19 18:54] VITALS: BP 212/118
[2024-04-19] MEDS: hydrALAZINE HCL 20 MG/ML VL IV ONE (18:55)
== END 2024-04-19 20:25 | disposition home or self-care (01) ==
LOC: ER 14:20
DX: N17.9 Acute kidney failure, unspecified (principal); I16.0 Hypertensive urgency; N18.6 End stage renal disease
CPT/HCPCS: 36415; 71045; 80053; 81001; 83880; 84484; 85025; 96374; 99284; J0360